=== PATIENT | male | born 1945 | race Caucasian/White ===

== ENCOUNTER 2017-05-28 12:24 | Inpatient (IN) | payer OTHER ==
[2017-05-28] MEDS ORDERED: ALTEPLASE 100MG 100 MG IVPB ONE (12:32)
[2017-05-28] MEDS: DOPAMINE 400 MG/D5W - 400,000 MCG/250 ML INFUS.BAG IVPB SCH (12:35)
[2017-05-28] MEDS ORDERED: NOREPINEPHRINE BITARTRATE 4 MG/4 ML ML IV ONE ×2 (12:36→12:38)
[2017-05-28] MEDS ORDERED: SODIUM CHLORIDE 0.9% 1000 ML INFUS.BAG IV ONE (12:40)
[2017-05-28] MEDS ORDERED: MIDAZOLAM HCL 2 MG/2 ML SINGLE DOSE VIAL ONE (12:47)
[2017-05-28] MEDS: NOREPINEPHRINE BITARTRATE 8,000 MCG in DEXTROSE 5%-WATER - 492 ML IV SCH (13:05)
[2017-05-28] MEDS ORDERED: PROPOFOL 1,000,000 MCG/100 ML VIAL ONE (13:10)
[2017-05-28 14:07] LABS: URINE APPEARANCE TURBID; URINE BILIRUBIN NEGATIVE (NEGATIVE); URINE BLOOD 2+ (NEGATIVE); URINE COLOR AMBER; URINE GLUCOSE (UA) 1+ (NEGATIVE); URINE KETONE NEGATIVE (NEGATIVE); URINE NITRITE NEGATIVE (NEGATIVE); URINE UROBILINOGEN NEGATIVE mg/dL (0.2-1.0)
--- NOTE | 2017-05-28 14:07 | PDOC ---
History of Present Illness - General Chief Complaint: Cardiac Arrest Stated Complaint: CARDIAC ARREST Time Seen by Provider: 05/28/17 12:44 - History of Present Illness Initial Comments: 05/28/17 13:55 "The patient is a 71 year old male, with a significant past medical history of a -fib, DM, HTN, CAD s/p stents, CHF, who arrives to the emergency department in respiratory failure. Patients reports the patient was on his way to see Dr. Nash for an appointment today for complaints of swelling in the RLE and pain across the chest. states that pt did not appear to be complaining of anything other than leg pain today. While in the cab on the way to hospital, he went unresponsive. Upon ER arrival the patient was found to be pulseless, and chest compressions were started at 12:20. Pt was coded per ACLS protocol for approx 10 minutes in ER, found to be in PEA arrest initially. He received epi x 3. Calcium, bicarb, D50 were also administered. Given report of RLE swelling, pt was given tPA bolus for presumed PE. Pt was intubated in ER. Pt regained pulse after 5 rounds of CPR. Pt was started on Levophed via IO. R IJ central line placed under sterile technique. Allergies: NKA Past surgical history: See HPI Social History: Nonsmoker. Denies EtOH use and recreational drug use. Primary Care Physician: Herb Counselor: " Past History - Past Medical History Allergies/Adverse Reactions: Allergies Allergy/AdvReac Type Severity Reaction Status Date / Time No Known Allergies Allergy Verified 05/28/17 12:30 Home Medications: Ambulatory Orders Escitalopram Oxalate [Lexapro -] 10 mg PO DAILY 05/28/17 Furosemide [Lasix] 80 mg PO DAILY 05/28/17 RX: Carvedilol 6.25 mg PO BID 05/28/17 RX: Potassium Chloride 20 meq PO DAILY 05/28/17 Sacubitril/Valsartan [Entresto 24 mg-26 mg Tablet] 1 each PO DAILY 05/28/17 Sitagliptin Phos/Metformin HCl [Janumet 50-500 mg Tablet] 1 each PO DAILY Cardiac Disorders: Yes COPD: No CHF: Yes Diabetes: Yes - Immunization History Immunization Up to Date: No - Suicide/Smoking/Psychosocial Hx Smoking History: Never smoked Have you smoked in the past 12 months: No Hx Alcohol Use: No Drug/Substance Use Hx: No Substance Use Type: None Hx Substance Use Treatment: No Review of Systems - Review of Systems Able to Perform ROS?: No *Physical Exam - Vital Signs Last Vital Signs Temp Pulse Resp BP Pulse Ox 89 24 0/0 96 05/28/17 13:09 05/28/17 13:06 05/28/17 12:29 05/28/17 13:09 - Physical Exam Comments: 05/28/17 14:07 "GENERAL: Intubated, unresponsive HEAD: No signs of trauma EYES: L pupil reactive, surgical R eye, sclera anicteric, conjunctiva clear ENT: Auricles normal inspection, nares patent, oropharynx clear without exudates. Moist mucosa NECK: +JVD, no stepoffs, no lymphadenopathy, or masses LUNGS: + Diffuse rales HEART: Regular rate and rhythm, normal S1 and S2, no murmurs, rubs or gallops ABDOMEN: Soft, normoactive bowel sounds. No masses NEUROLOGICAL: Intubated and sedated SKIN: Warm, Dry, normal turgor, no rashes or lesions noted. " Procedures - Central Line Central Line Lumen: triple Central Line Position: internal jugular (R) Complications: none Post Central Line Insertion: sutured, good blood return, position confirmed w/ CXR - Intubation Time of Intubation: 13:30 Intubation Method: orotracheal Blade used: Mac Tube Size (Fr): 7.5 Tube position @ lip (cm): 22 Tube position confirmed by: Direct visualization, CO2 detector, Chest x-ray, Breath sounds Breath Sounds after Intubation: equal Intubation Complications: no complications Post Intubation Xray: Yes (Good tube placement) Heart Score/ECG Review - ECG Impressions Comment:: 05/28/17 14:08 NSR, no CARLA/STDs, TWI in V2-V3, intervals wnl ED Treatment Course - LABORATORY CBC & Chemistry Diagram: 05/30/17 05:35 05/30/17 05:35 Medical Decision Making - Critical Care Time Total Critical Care Time (minutes): 90 Critical Care Statement: The care of this patient involved high complexity decision making to prevent further life threatening deterioration of the patient 's condition and/or to evaluate & treat vital organ system(s) failure or risk of failure. - Medical Decision Making 05/28/17 14:09 71 M with cardiac arrest, likely 2/2 respiratory failure. Pt with pulmonary edema and rales on exam, consistent with acute CHF exacerbation. Pt also was complaining of RLE swelling prior to arrival to ER, so tPA bolus was administered during resuscitation for possible PE. Pt with no signs of acute WI on EKG. - Labs, trop, lactate - Serial blood gases - CXR, UA - BCx - Sedation while intubated - Pressors PRN (currently on levophed, will start dobutamine for added inotropy if needed) - Admit ICU 05/28/17 14:45 Canales placed with minimal urine return Bedside sono reveals decompressed bladder. Possible new renal failure. Will f/u labs. Case discussed in detail with oncoming Emergency Physician including history, physical exam and ancillary studies. Oncoming Emergency Physician has assumed care for the patient and will complete the evaluation and treatment. Patient is aware of the plan. *DC/Admit/Observation/Transfer Diagnosis at time of Disposition: Cardiac arrest due to respiratory disorder - Discharge Dispostion Admit: Yes - Referrals - Patient Instructions - Post Discharge Activity - Attestations Physician Attestion: 05/28/17 14:12 I, Dr. Ty Urban MD, attest that this document has been prepared under my direction and personally reviewed by me in its entirety. I further attest, that it accurately reflects all work, treatment, procedures and medical decision -making performed by me.
[2017-05-28 14:20] LABS: EOS % 0.3 % (0-4.5); HEMATOCRIT 31.8 % (35.4-49); HEMOGLOBIN 10.1 GM/dL (11.7-16.9); LYMPH % 4.3 % (8-40); MCH 30.6 pg (25.7-33.7); MCHC 31.7 g/dl (32.0-35.9); MEAN CELL VOLUME 96.5 fl (80-96); MEAN PLT VOLUME 9.3 fl (7.5-11.1); NEUT % 89.4 % (42.8-82.8); PLATELET COUNT 169 K/MM3 (134-434); RBC 3.29 M/mm3 (4.00-5.60); RDW 16.3 % (11.9-15.9); WHITE BLOOD COUNT 8.5 K/mm3 (4.0-10.0)
[2017-05-28 14:21] LABS: VENOUS PC02 67.5 mmHg (38-52); VENOUS PH 7.23 (7.32-7.42); VENOUS PO2 41.6 mmHg (28-48)
[2017-05-28 14:30] LABS: URINE LEUK ESTERASE 3+ (NEGATIVE); URINE PROTEIN 3+ (NEGATIVE)
[2017-05-28] MEDS ORDERED: MIDAZOLAM HCL 2 MG/2 ML SINGLE DOSE VIAL IVPUSH ONE (14:40)
[2017-05-28 14:44] LABS: ANION GAP 8 (8-16); BILIRUBIN,TOTAL 0.6 mg/dL (0.2-1.0); BLOOD UREA NITROGEN 28 mg/dL (7-18); CALCIUM 8.6 mg/dL (8.5-10.1); CHLORIDE 106 mmol/L (98-107); CO2 28 mmol/L (21-32); CREATININE 1.5 mg/dL (0.7-1.3); POTASSIUM 5.8 mmol/L (3.5-5.1); SGOT/AST 241 U/L (15-37); SGPT/ALT 120 U/L (12-78); SODIUM 142 mmol/L (136-145); TOT PROT 4.9 g/dl (6.4-8.2)
[2017-05-28 14:52] LABS: EPI CELLS RARE /HPF (FEW); URINE BACTERIA MANY /hpf (NONE SEEN); URINE MUCUS RARE
[2017-05-28] MEDS ORDERED: ALTEPLASE 50 MG VIAL IVPB ONE (14:56)
[2017-05-28 14:59] LABS: ALK PHOS 289 U/L (45-117)
[2017-05-28 15:07] LABS: GLUCOSE,RANDOM 332 mg/dL (74-106)
[2017-05-28 15:21] LABS: INR 1.21 (0.82-1.09); PROTHROMBIN TIME (PATIENT) 13.7 SEC (9.98-11.88)
[2017-05-28 15:24] LABS: ACTIVATED PTT 38.3 SECONDS (26.9-34.4)
--- NOTE | 2017-05-28 15:32 | CONSULT ---
Consult Consult Specialty:: PULMONARY/CCM Referred by:: Dr. Urban Reason for Consultation:: cardiopulmonary arrest - History of Present Illness Chief Complaint: unresponsive History of Present Illness: 71yo male with h/o HTN, DM, atrial fibrillation, CAD s/p stents, LV systolic dysfunction who became unresponsive on the cab ride to the hospital. Found to be pulseless in the ER with initial rhythm of PEA. Given 3 rounds of epinephrine , given tPA bolus for presumed PE with ROSC after 10 minutes. CXR suggestive of pulmonary edema. Now intubated, sedated on propofol gtt on levophed gtt. Minimal urine output during oatse placement. - History Source History Provided By: Medical Record Limitations to Obtaining History: Clinical Condition - Past Medical History Cardio/Vascular: Yes: AFIB, CAD, CHF, HTN Endocrine: Yes: Diabetes Mellitus - Alcohol/Substance Use Hx Alcohol Use: No - Smoking History Smoking history: Never smoked Have you smoked in the past 12 months: No - Social History History of Recent Travel: No Home Medications - Allergies Allergies/Adverse Reactions: Allergies Allergy/AdvReac Type Severity Reaction Status Date / Time No Known Allergies Allergy Verified 05/28/17 12:30 - Home Medications Home Medications: Ambulatory Orders Carvedilol 6.25 mg PO BID 05/28/17 Escitalopram Oxalate [Lexapro -] 10 mg PO DAILY 05/28/17 Furosemide [Lasix] 80 mg PO DAILY 05/28/17 Potassium Chloride 20 meq PO DAILY 05/28/17 Sacubitril/Valsartan [Entresto 24 mg-26 mg Tablet] 1 each PO DAILY 05/28/17 Sitagliptin Phos/Metformin HCl [Janumet 50-500 mg Tablet] 1 each PO DAILY Review of Systems Unable to obtain ROS, reason: pt intubated Physical Exam Vital Signs: Vital Signs Temperature 97.2 F L 05/28/17 13:00 Pulse Rate 73 05/28/17 14:00 Respiratory Rate 18 05/28/17 14:00 Blood Pressure 91/52 05/28/17 14:00 O2 Sat by Pulse Oximetry (%) 90 L 05/28/17 14:00 Constitutional: Yes: Moderate Distress, Other (intubated, tachypneic) Eyes: Yes: Conjunctiva Clear, EOM Intact HENT: Yes: Atraumatic, Normocephalic Neck: Yes: Supple, Trachea Midline Cardiovascular: Yes: Tachycardia Respiratory: Yes: Rhonchi Gastrointestinal: Yes: Soft. No: Tenderness Edema: Yes Labs: CBC, BMP 05/28/17 14:15 05/28/17 14:15 Imaging - Results Chest X-ray: Report Reviewed, Image Reviewed (pulmonary edema) Problem List - Problems (1) Acute respiratory failure with hypoxia Code(s): J96.01 - ACUTE RESPIRATORY FAILURE WITH HYPOXIA (2) Cardiac arrest Code(s): I46.9 - CARDIAC ARREST, CAUSE UNSPECIFIED (3) Acute pulmonary edema Code(s): J81.0 - ACUTE PULMONARY EDEMA (4) Acute on chronic systolic heart failure Code(s): I50.23 - ACUTE ON CHRONIC SYSTOLIC (CONGESTIVE) HEART FAILURE (5) Atrial fibrillation Code(s): I48.91 - UNSPECIFIED ATRIAL FIBRILLATION (6) Elevated troponin Code(s): R74.8 - ABNORMAL LEVELS OF OTHER SERUM ENZYMES (7) Hyperkalemia Code(s): E87.5 - HYPERKALEMIA (8) Hypertension Code(s): I10 - ESSENTIAL (PRIMARY) HYPERTENSION (9) Diabetes Code(s): E11.9 - TYPE 2 DIABETES MELLITUS WITHOUT COMPLICATIONS Assessment/Plan Acute Hypoxic and Hypercapneic Respiratory Failure s/p PEA Cardiopulmonary Arrest Acute Pulmonary Edema Acute on Chronic Systolic Heart Failure Shock - Likely Cardiogenic r/o Acute KS Acute Kidney Injury Lactic Acidosis Elevated LFTs Atrial Fibrillation HTN DM - echocardiogram - levophed gtt to maintain MAP >65 - can add inotropic agent - IV lasix - consider nitro gtt if BP tolerates - trend cardiac enzymes, EKGs, lactate, LFTs - monitor urine output, creatinine - renal/bladder ultrasound - LE dopplers - continue volume assist control, currently on 100% FiO2, PEEP 10 - ICU monitoring - prognosis guarded critical care time spent in reviewing chart, evaluating patient and formulating plan 40 min
[2017-05-28] MEDS ORDERED: FUROSEMIDE 40 MG/4 ML INJECTABLE VIAL IVPUSH ONE (16:15)
[2017-05-28] MEDS ORDERED: FUROSEMIDE 40 MG/4 ML INJECTABLE VIAL ONE (16:29)
--- NOTE | 2017-05-28 16:29 | EKG ---
Test Reason : Blood Pressure : / mmHG Vent. Rate : 106 BPM Atrial Rate : 106 BPM P-R Int : 154 ms QRS Dur : 090 ms QT Int : 324 ms P-R-T Axes : 046 -43 034 degrees QTc Int : 430 ms SINUS TACHYCARDIA WITH PREMATURE ATRIAL COMPLEXES WITH ABERRANT CONDUCTION LEFT AXIS DEVIATION LOW VOLTAGE QRS ANTEROLATERAL INFARCT (CITED ON OR BEFORE 25-AUG-2014) ABNORMAL ECG WHEN COMPARED WITH ECG OF 27-AUG-2014 09:24, SIGNIFICANT CHANGES HAVE OCCURRED Confirmed by EVELYN MARQUES MD ([id number]) on 05/28/2017 4:29:16 PM Referred By: Confirmed By:EVELYN MARQUES MD
--- NOTE | 2017-05-28 18:57 | HP ---
Admitting History and Physical - Primary Care Physician PCP: Martin Nash - Admission History of Present Illness: the patient is 71yo male, patient of Dr Nash-- with extensive past medical history of HTN, DM, atrial fibrillation, CAD s/p stents, LV systolic dysfunction who became unresponsive on the cab ride to his doctor's office. Hotel Maintenance Technician took him to the emergency room. . Found to be pulseless in the ER with initial rhythm of PEA. patient coded in the ER--Resuscitated. Given 3 rounds of epinephrine, given tPA bolus for presumed PE with ROSC after 10 minutes. CXR suggestive of pulmonary edema. Now intubated, sedated on propofol gtt on levophed gtt. patient seen by me in the emergency room. Discussed with emergency room physician also as well as nursing staff at bedside. Chart reviewed History Source: Family Member, Medical Record Limitations to Obtaining History: Clinical Condition - Past Medical History Cardiovascular: Yes: AFIB, CAD, CHF, HTN Endocrine: Yes: Diabetes Mellitus - Smoking History Smoking history: Never smoked Have you smoked in the past 12 months: No - Alcohol/Substance Use Hx Alcohol Use: No - Social History History of Recent Travel: No Home Medications - Allergies Allergies/Adverse Reactions: Allergies Allergy/AdvReac Type Severity Reaction Status Date / Time No Known Allergies Allergy Verified 05/28/17 12:30 - Home Medications Home Medications: Ambulatory Orders Carvedilol 6.25 mg PO BID 05/28/17 Escitalopram Oxalate [Lexapro -] 10 mg PO DAILY 05/28/17 Furosemide [Lasix] 80 mg PO DAILY 05/28/17 Potassium Chloride 20 meq PO DAILY 05/28/17 Sacubitril/Valsartan [Entresto 24 mg-26 mg Tablet] 1 each PO DAILY 05/28/17 Sitagliptin Phos/Metformin HCl [Janumet 50-500 mg Tablet] 1 each PO DAILY Review of Systems Unable to obtain ROS, reason: see [place] Physical Examination Vital Signs: Vital Signs Temperature 95.9 F L 05/28/17 18:24 Pulse Rate 76 05/28/17 18:24 Respiratory Rate 16 05/28/17 18:24 Blood Pressure 115/66 05/28/17 18:24 O2 Sat by Pulse Oximetry (%) 100 05/28/17 18:24 Constitutional: Yes: Other (intubated/sedated/) Eyes: Yes: Other HENT: Yes: Other Neck: Yes: Other Cardiovascular: Yes: Regular Rate and Rhythm Respiratory: Yes: Diminished Gastrointestinal: Yes: Soft Edema: LLE: 1+, RLE: 1+ Neurological: Yes: Other (sedated) Labs: CBC, BMP 05/28/17 14:15 05/28/17 14:15 Imaging - Results Chest X-ray: Report Reviewed EKG: Report Reviewed Problem List - Problems (1) Cardiac arrest Code(s): I46.9 - CARDIAC ARREST, CAUSE UNSPECIFIED (2) Diabetes Code(s): E11.9 - TYPE 2 DIABETES MELLITUS WITHOUT COMPLICATIONS (3) Elevated troponin Code(s): R74.8 - ABNORMAL LEVELS OF OTHER SERUM ENZYMES (4) Lactic acidosis Code(s): E87.2 - ACIDOSIS (5) CHF (congestive heart failure) Code(s): I50.9 - HEART FAILURE, UNSPECIFIED Assessment/Plan ICU admit IV Lasix Ventilator support Critical team on the case. Cardiology to evaluate--- called for consultation. Monitor blood sugar Discussed with patient's . Condition critical. critical care time--examining documenting coordinating care as well as discussing with family--40 minutes. We will follow.
[2017-05-28] MEDS: PANTOPRAZOLE SODIUM 40 MG VIAL IVPUSH SCH (19:00)
[2017-05-28] MEDS ORDERED: PANTOPRAZOLE SODIUM 40 MG VIAL ONE (19:02)
[2017-05-28 22:06] LABS: ANION GAP 5 (8-16); BLOOD UREA NITROGEN 34 mg/dL (7-18); CALCIUM 8.6 mg/dL (8.5-10.1); CHLORIDE 105 mmol/L (98-107); CO2 30 mmol/L (21-32); CREATININE 1.5 mg/dL (0.7-1.3); POTASSIUM 5.6 mmol/L (3.5-5.1); SODIUM 140 mmol/L (136-145)
[2017-05-28 22:09] LABS: GLUCOSE,RANDOM 313 mg/dL (74-106)
[2017-05-28] MEDS ORDERED: SODIUM POLYSTYRENE SULFONATE 15 GM/60 ML BOTTLE NGT ONE (23:53)
[2017-05-28] MEDS ORDERED: DEXTROSE 50%-WATER - 25 GM/50 ML VIAL IVPUSH ONE (23:54)
[2017-05-28] MEDS ORDERED: INSULIN REGULAR HUMAN 100 UNITS/ML *VIAL IVPUSH ONE (23:54)
[2017-05-29] MEDS ORDERED: PROPOFOL 1,000,000 MCG/100 ML VIAL ONE ×2 (00:01→17:10)
[2017-05-29] MEDS ORDERED: SODIUM BICARBONATE 8.4% 50 MEQ/50 ML DISP.SYRIN IVPUSH ONE (00:15)
[2017-05-29] MEDS: MIDAZOLAM 100 MG in SODIUM CHLORIDE 100 ML IVPB SCH ×3 (00:18→19:00)
[2017-05-29] MEDS ORDERED: DEXTROSE 50%-WATER 25 GM/50 ML DISP.SYRIN ONE (00:22)
[2017-05-29 00:39] VITALS: BMI 32.6
[2017-05-29 01:13] LABS: VENOUS PC02 46.7 mmHg (38-52); VENOUS PH 7.33 (7.32-7.42); VENOUS PO2 52.6 mmHg (28-48)
[2017-05-29] MEDS ORDERED: INSULIN (NOVOLOG) ASPART 100 UNITS/ML 10ML VIAL SQ ONE (01:30)
[2017-05-29] MEDS: NOREPINEPHRINE BITARTRATE 8,000 MCG in DEXTROSE 5%-WATER - 492 ML IV SCH ×3 (02:00→16:23)
[2017-05-29 03:31] LABS: HEMATOCRIT 29.2 % (35.4-49); HEMOGLOBIN 9.7 GM/dL (11.7-16.9); MCH 31.2 pg (25.7-33.7); MCHC 33.1 g/dl (32.0-35.9); MEAN CELL VOLUME 94.2 fl (80-96); MEAN PLT VOLUME 8.6 fl (7.5-11.1); PLATELET COUNT 152 K/MM3 (134-434); RDW 15.6 % (11.9-15.9); WHITE BLOOD COUNT 10.6 K/mm3 (4.0-10.0)
[2017-05-29 03:58] LABS: ANION GAP 7 (8-16); BLOOD UREA NITROGEN 36 mg/dL (7-18); CALCIUM 8.5 mg/dL (8.5-10.1); CHLORIDE 106 mmol/L (98-107); CO2 30 mmol/L (21-32); CREATININE 1.7 mg/dL (0.7-1.3); GLUCOSE,RANDOM 293 mg/dL (74-106); SODIUM 143 mmol/L (136-145)
[2017-05-29] MEDS: CHLORHEXIDINE GLUCONATE 4% CLEANSER FOR DECOLONIZATION TP SCH ×2 (03:59→21:29)
[2017-05-29] MEDS: INSULIN SLIDING SCALE (NOVOLOG) 1 VIAL SQ SCH ×3 (06:32→16:24)
[2017-05-29 06:47] LABS: HEMATOCRIT 30.1 % (35.4-49); LYMPH % 3.3 % (8-40); MCH 31.5 pg (25.7-33.7); MCHC 33.2 g/dl (32.0-35.9); MEAN CELL VOLUME 94.9 fl (80-96); MEAN PLT VOLUME 10.1 fl (7.5-11.1); MONO % 9.8 % (3.8-10.2); NEUT % 86.9 % (42.8-82.8); PLATELET COUNT 164 K/MM3 (134-434); RBC 3.17 M/mm3 (4.00-5.60); RDW 15.9 % (11.9-15.9); WHITE BLOOD COUNT 10.7 K/mm3 (4.0-10.0)
[2017-05-29 07:04] LABS: ALBUMIN 1.9 g/dl (3.4-5.0); ANION GAP 7 (8-16); BILIRUBIN,TOTAL 0.5 mg/dL (0.2-1.0); BLOOD UREA NITROGEN 37 mg/dL (7-18); CALCIUM 8.4 mg/dL (8.5-10.1); CHLORIDE 105 mmol/L (98-107); CO2 31 mmol/L (21-32); CREATININE 1.6 mg/dL (0.7-1.3); GLUCOSE,RANDOM 263 mg/dL (74-106); MAGNESIUM 1.8 mg/dL (1.8-2.4); PHOSPHOROUS 3.8 mg/dL (2.5-4.9); POTASSIUM 5.2 mmol/L (3.5-5.1); SGOT/AST 80 U/L (15-37); SGPT/ALT 82 U/L (12-78); SODIUM 143 mmol/L (136-145); TOT PROT 4.7 g/dl (6.4-8.2)
[2017-05-29 07:05] LABS: ALK PHOS 208 U/L (45-117)
[2017-05-29 07:23] LABS: INR 1.24 (0.82-1.09)
[2017-05-29 07:26] LABS: ACTIVATED PTT 36.1 SECONDS (26.9-34.4)
--- NOTE | 2017-05-29 08:47 | PN ---
Progress Note (short form) - Note Progress Note: patient seen examined in ICU Remains intubated poorly responsive not responding to painful stimuli no GAG reflux on pressors oates - out put fairly good Vital Signs Temp 93.5 F L 05/29/17 06:02 Pulse 72 05/29/17 06:02 Resp 18 05/29/17 06:34 BP 105/62 05/29/17 06:02 Pulse Ox 100 05/29/17 00:23 Intake & Output 05/28/17 05/28/17 05/29/17 11:59 23:59 11:59 Intake Total 620 553 Output Total 220 300 Balance 400 253 Weight 160 lb 196 lb 3.382 oz Intake: IV 120 553 DIPRIVAN - 1,000,000 mcg 112 In 100 ml @ 5 MCG/KG/MIN 2.177 mls/hr IVPB TITR PHILL Rx#:[id number] Levophed - 8,000 Mcg In 120 392 D5w - 492 ml @ 5 MCG/MIN 18.75 mls/hr IV TITR PHILL Rx#:[id number] Versed - 100 mg In Normal 49 Saline - 100 ml @ 1 MG/ HR 1 mls/hr IVPB TITR PHILL Rx#:[id number] IVPB 500 Output: Urine 220 300 Oates 220 300 Other: Voiding Method Indwelling Catheter Indwelling Catheter Height 5 ft 5 in 5 ft 5 in Body Mass Index (BMI) 26.6 32.6 Weight Measurement Method Built in [facility] Weight Measurement Method Est/Stated by Patient Active Medications Chlorhexidine Gluconate (Hibiclens For Decolonization -) 1 applic TP HS PHILL Last Admin: 05/29/17 03:59 Dose: 1 applic Dopamine HCl/Dextrose (Dopamine 400 Mg/D5w -) 400,000 mcg in 250 mls @ 13.608 mls/hr IVPB TITR PHILL; 5 MCG/KG/MIN PRN Reason: Protocol Last Admin: 05/28/17 12:35 Dose: Not Given Norepinephrine Bitartrate 8, (000 mcg/ Dextrose) 500 mls @ 18.75 mls/hr IV TITR PHILL; 5 MCG/MIN PRN Reason: Protocol Last Admin: 05/29/17 02:00 Dose: 15 mcg/min, 56.25 mls/hr Midazolam HCl 100 mg/ Sodium (Chloride) 100 mls @ 1 mls/hr IVPB TITR PHILL; 1 MG/ HR PRN Reason: Protocol Last Titration: 05/29/17 00:30 Dose: 5 mg/hr, 5 mls/hr Propofol (Diprivan -) 1,000,000 mcg in 100 mls @ 2.177 mls/hr IVPB TITR PHILL; 5 MCG/KG/MIN PRN Reason: Protocol Last Admin: 05/29/17 00:00 Dose: 68.89 mcg/kg/min, 30 mls/hr Insulin Aspart (Novolog Vial Sliding Scale -) 1 vial SQ TIDAC PHILL PRN Reason: Protocol Last Admin: 05/29/17 06:32 Dose: 8 units Mupirocin (Bactroban Ointment (For Decolonization) -) 1 applic NS BID PHILL Stop: 06/02/17 23:29 Last Admin: 05/29/17 00:00 Dose: 1 applic Pantoprazole Sodium (Protonix Iv) 40 mg IVPUSH DAILY PHILL Last Admin: 05/28/17 19:00 Dose: 40 mg Abnormal Lab Results 05/28/17 05/28/17 05/28/17 13:40 14:15 14:15 WBC RBC 3.29 L Hgb 10.1 L D Hct 31.8 L MCV 96.5 H MCHC 31.7 L RDW 16.3 H D Absolute Neuts (auto) 7.6 L Absolute Lymphs (auto) 0.4 L Absolute Monos (auto) 0.4 L Absolute Basos (auto) Neutrophils % 89.4 H D Lymphocytes % 4.3 L D PT with INR 13.70 H INR 1.21 H PTT (Actin FS) 38.3 H VBG pH POC VBG pCO2 POC VBG pO2 Mixed VBG HCO3 Potassium Anion Gap BUN Creatinine Random Glucose Lactic Acid Calcium AST ALT Alkaline Phosphatase Creatine Kinase Index CK-MB (CK-2) Troponin I Total Protein Albumin Urine Protein 3+ H Urine Glucose (UA) 1+ H Urine Blood 2+ H Ur Leukocyte Esterase 1+ H 05/28/17 05/28/17 05/28/17 14:15 14:15 14:15 WBC RBC Hgb Hct MCV MCHC RDW Absolute Neuts (auto) Absolute Lymphs (auto) Absolute Monos (auto) Absolute Basos (auto) Neutrophils % Lymphocytes % PT with INR INR PTT (Actin FS) VBG pH 7.23 L* POC VBG pCO2 67.5 H* POC VBG pO2 Mixed VBG HCO3 27.5 H Potassium 5.8 H D Anion Gap BUN 28 H D Creatinine 1.5 H Random Glucose 332 H* Lactic Acid 3.1 H* Calcium AST 241 H D ALT 120 H D Alkaline Phosphatase 289 H D Creatine Kinase Index 5.2 H CK-MB (CK-2) 8.389 H Troponin I 0.81 H* D Total Protein 4.9 L Albumin 2.0 L D Urine Protein Urine Glucose (UA) Urine Blood Ur Leukocyte Esterase 05/28/17 05/28/17 05/29/17 21:25 21:25 01:00 WBC RBC Hgb Hct MCV MCHC RDW Absolute Neuts (auto) Absolute Lymphs (auto) Absolute Monos (auto) Absolute Basos (auto) Neutrophils % Lymphocytes % PT with INR INR PTT (Actin FS) VBG pH POC VBG pCO2 POC VBG pO2 52.6 H D Mixed VBG HCO3 Potassium 5.6 H Anion Gap 5 L BUN 34 H D Creatinine 1.5 H Random Glucose 313 H* Lactic Acid Calcium AST ALT Alkaline Phosphatase Creatine Kinase Index 5.9 H CK-MB (CK-2) 17.054 H Troponin I 1.15 H* D Total Protein Albumin Urine Protein Urine Glucose (UA) Urine Blood Ur Leukocyte Esterase 05/29/17 05/29/17 05/29/17 03:25 03:25 06:20 WBC 10.6 H 10.7 H RBC 3.10 L 3.17 L Hgb 9.7 L 10.0 L Hct 29.2 L 30.1 L MCV MCHC RDW Absolute Neuts (auto) 9.3 L D Absolute Lymphs (auto) 0.3 L Absolute Monos (auto) 1.1 L Absolute Basos (auto) 0.0 L Neutrophils % 86.9 H Lymphocytes % 3.3 L D PT with INR INR PTT (Actin FS) VBG pH POC VBG pCO2 POC VBG pO2 Mixed VBG HCO3 Potassium Anion Gap 7 L BUN 36 H Creatinine 1.7 H Random Glucose 293 H Lactic Acid Calcium AST ALT Alkaline Phosphatase Creatine Kinase Index CK-MB (CK-2) Troponin I Total Protein Albumin Urine Protein Urine Glucose (UA) Urine Blood Ur Leukocyte Esterase 05/29/17 05/29/17 05/29/17 06:20 06:20 06:20 WBC RBC Hgb Hct MCV MCHC RDW Absolute Neuts (auto) Absolute Lymphs (auto) Absolute Monos (auto) Absolute Basos (auto) Neutrophils % Lymphocytes % PT with INR 14.00 H INR 1.24 H PTT (Actin FS) 36.1 H VBG pH POC VBG pCO2 POC VBG pO2 Mixed VBG HCO3 Potassium 5.2 H Anion Gap 7 L BUN 37 H Creatinine 1.6 H Random Glucose 263 H Lactic Acid 3.2 H* Calcium 8.4 L AST 80 H D ALT 82 H D Alkaline Phosphatase 208 H D Creatine Kinase Index CK-MB (CK-2) Troponin I Total Protein 4.7 L Albumin 1.9 L Urine Protein Urine Glucose (UA) Urine Blood Ur Leukocyte Esterase 05/29/17 06:20 WBC RBC Hgb Hct MCV MCHC RDW Absolute Neuts (auto) Absolute Lymphs (auto) Absolute Monos (auto) Absolute Basos (auto) Neutrophils % Lymphocytes % PT with INR INR PTT (Actin FS) VBG pH POC VBG pCO2 POC VBG pO2 Mixed VBG HCO3 Potassium Anion Gap BUN Creatinine Random Glucose Lactic Acid Calcium AST ALT Alkaline Phosphatase Creatine Kinase Index CK-MB (CK-2) Troponin I 0.45 H D Total Protein Albumin Urine Protein Urine Glucose (UA) Urine Blood Ur Leukocyte Esterase N- intubated, not responsive to painful stimuli CVS- s1s2 lungs- anterior breath sounds, diminished abd- soft, nd LE- trace edema right TLC A/P Acute Hypoxic respiratory failure status post PEA cardiac arrest acute pulmonary edema acute on chronic systolic HF aFIB Elevated troponin lactic acidosis leucocytosis positive UA Elevated LFT NIKA -VENT support -pressors -cardiac evaluation ECHO pending -consider ID evaluation prognosis guarded Problem List - Problems (1) Lactic acidosis Code(s): E87.2 - ACIDOSIS (2) Leucocytosis Code(s): D72.829 - ELEVATED WHITE BLOOD CELL COUNT, UNSPECIFIED (3) Acute on chronic systolic heart failure Code(s): I50.23 - ACUTE ON CHRONIC SYSTOLIC (CONGESTIVE) HEART FAILURE (4) Acute pulmonary edema Code(s): J81.0 - ACUTE PULMONARY EDEMA (5) Acute respiratory failure with hypoxia Code(s): J96.01 - ACUTE RESPIRATORY FAILURE WITH HYPOXIA (6) Cardiac arrest due to respiratory disorder Code(s): J98.9 - RESPIRATORY DISORDER, UNSPECIFIED; I46.8 - CARDIAC ARREST DUE TO OTHER UNDERLYING CONDITION (7) Elevated troponin Code(s): R74.8 - ABNORMAL LEVELS OF OTHER SERUM ENZYMES
[2017-05-29 08:52] LABS: ARTERIAL BLD GAS O2 SATURATION 99.9 % (90-98.9); ARTERIAL BLOOD GAS BASE EXCESS 3.7 meq/l (-2-2); ARTERIAL BLOOD GAS PCO2 49.2 mmHg (35-45); ARTERIAL BLOOD GAS pH 7.39 (7.35-7.45)
[2017-05-29 08:57] LABS: ALLENS TEST POSITIVE
[2017-05-29] MEDS: PANTOPRAZOLE SODIUM 40 MG VIAL IVPUSH SCH (09:49)
[2017-05-29] MEDS: MUPIROCIN 2% TOPICAL OINTMENT FOR DECOLONIZATION NS SCH ×3 (09:50→21:29)
[2017-05-29] MEDS ORDERED: LEVOFLOXACIN 500 MG IVPB 500 MG/100 ML BAG IVPB ONE (10:00)
[2017-05-29] MEDS ORDERED: HEMOQUE TEST 1 EACH EACH ONE (10:58)
[2017-05-29] MEDS ORDERED: INSULIN (NOVOLOG) ASPART 100 UNITS/ML 10ML VIAL ONE (10:59)
--- NOTE | 2017-05-29 11:17 | PN ---
Progress Note (short form) - Note Progress Note: ID consult dictated 71 year old man on his way to PMD for RLE swelling and chest pain, arrested in cab and brought to ED resuscitated and given TPA intubated on levophed, propofol and versed asked to see for UTI cxray suggestive of congestion s/p cardiac arrest chf anasarca UTI dm poorly controlled nika awaiting cardiology evaluation f/u cultures start zosyn for UTI, currently on pressors adjust for elevated creatinine Problem List - Problems (1) Cardiac arrest Code(s): I46.9 - CARDIAC ARREST, CAUSE UNSPECIFIED (2) Acute on chronic systolic heart failure Code(s): I50.23 - ACUTE ON CHRONIC SYSTOLIC (CONGESTIVE) HEART FAILURE (3) Anasarca Code(s): R60.1 - GENERALIZED EDEMA (4) UTI (urinary tract infection) Code(s): N39.0 - URINARY TRACT INFECTION, SITE NOT SPECIFIED (5) NIKA (acute kidney injury) Code(s): N17.9 - ACUTE KIDNEY FAILURE, UNSPECIFIED
[2017-05-29] MEDS ORDERED: PIPERACILLIN/TAZOB 3.375 GM/50 ML PRE-DOCKED IVPB SCH (11:30)
--- NOTE | 2017-05-29 11:54 | PN ---
Teaching Attending Note Name of Resident: Gaurav Miller ATTENDING PHYSICIAN STATEMENT I saw and evaluated the patient. I reviewed the resident's note and discussed the case with the resident. I agree with the resident's findings and plan as documented. SUBJECTIVE: Patient seen and examined in the ICU. Intubated and sedated. Noted increase in lactic acid and worsening renal function. Remains on pressors. Intake & Output 05/26/17 05/27/17 05/28/17 05/29/17 23:59 23:59 23:59 23:59 Intake Total 620 553 Output Total 220 300 Balance 400 253 Weight 160 lb 196 lb 3.382 oz Last Vital Signs Temp Pulse Resp BP Pulse Ox 94.7 F L 73 18 97/60 100 05/29/17 10:00 05/29/17 11:14 05/29/17 10:00 05/29/17 11:14 05/29/17 09:00 Active Medications Chlorhexidine Gluconate (Hibiclens For Decolonization -) 1 applic TP HS PHILL Last Admin: 05/29/17 03:59 Dose: 1 applic Dopamine HCl/Dextrose (Dopamine 400 Mg/D5w -) 400,000 mcg in 250 mls @ 13.608 mls/hr IVPB TITR PHILL; 5 MCG/KG/MIN PRN Reason: Protocol Last Admin: 05/28/17 12:35 Dose: Not Given Norepinephrine Bitartrate 8, (000 mcg/ Dextrose) 500 mls @ 18.75 mls/hr IV TITR PHILL; 5 MCG/MIN PRN Reason: Protocol Last Admin: 05/29/17 11:14 Dose: 15 mcg/min, 56.25 mls/hr Midazolam HCl 100 mg/ Sodium (Chloride) 100 mls @ 1 mls/hr IVPB TITR PHILL; 1 MG/ HR PRN Reason: Protocol Last Titration: 05/29/17 11:00 Dose: 0 mg/hr, 0 mls/hr Propofol (Diprivan -) 1,000,000 mcg in 100 mls @ 2.177 mls/hr IVPB TITR PHILL; 5 MCG/KG/MIN PRN Reason: Protocol Last Admin: 05/29/17 00:00 Dose: 68.89 mcg/kg/min, 30 mls/hr Piperacillin Sod/Tazobactam (Sod 3.375 gm/ Dextrose) 100 mls @ 200 mls/hr IVPB Q8H-IV PHILL Sodium Chloride (Normal Saline -) 1,000 mls @ 100 mls/hr IV ASDIR PHILL Insulin Aspart (Novolog Vial Sliding Scale -) 1 vial SQ TIDAC PHILL PRN Reason: Protocol Last Admin: 05/29/17 11:06 Dose: 3 units Insulin Detemir (Levemir Vial) 10 units SQ HS PHILL Mupirocin (Bactroban Ointment (For Decolonization) -) 1 applic NS BID PHILL Stop: 06/02/17 23:29 Last Admin: 05/29/17 09:50 Dose: 1 applic Pantoprazole Sodium (Protonix Iv) 40 mg IVPUSH DAILY PHILL Last Admin: 05/29/17 09:49 Dose: 40 mg Constitutional: Yes: Intubated and sedated Eyes: Yes: Conjunctiva Clear, right eye enucleated, poorly responsive left eye HENT: Yes: Atraumatic, Normocephalic Neck: Yes: Supple, Trachea Midline Cardiovascular: Yes: Tachycardia Respiratory: Yes: Rhonchi Gastrointestinal: Yes: Soft. No: Tenderness Edema: Yes Labs: Laboratory Results - last 24 hr 05/28/17 05/28/17 05/28/17 13:40 14:15 14:15 WBC 8.5 D RBC 3.29 L Hgb 10.1 L D Hct 31.8 L MCV 96.5 H MCH 30.6 MCHC 31.7 L RDW 16.3 H D Plt Count 169 MPV 9.3 Absolute Neuts (auto) 7.6 L Absolute Lymphs (auto) 0.4 L Absolute Monos (auto) 0.4 L Absolute Eos (auto) 0.0 Absolute Basos (auto) 0.1 Neutrophils % 89.4 H D Lymphocytes % 4.3 L D Monocytes % 5.0 Eosinophils % 0.3 D Basophils % 1.0 PT with INR 13.70 H INR 1.21 H PTT (Actin FS) 38.3 H Puncture Site ABG pH ABG pCO2 at Pt Temp ABG pO2 at Pt Temp ABG HCO3 ABG O2 Sat (Measured) ABG O2 Content ABG Base Excess Maulik Test VBG pH POC VBG pCO2 POC VBG pO2 Mixed VBG HCO3 O2 Delivery Device Oxygen Flow Rate Vent Rate Mechanical Rate PEEP Pressure Support Vent Sodium Potassium Chloride Carbon Dioxide Anion Gap BUN Creatinine Creat Clearance w eGFR POC Glucometer Random Glucose Hemoglobin A1c % Lactic Acid Calcium Phosphorus Magnesium Total Bilirubin AST ALT Alkaline Phosphatase Creatine Kinase Creatine Kinase Index CK-MB (CK-2) Troponin I Total Protein Albumin Urine Color [place] Urine Appearance Turbid Urine pH 5.0 Ur Specific [place] 1.013 Urine Protein 3+ H Urine Glucose (UA) 1+ H Urine Ketones Negative Urine Blood 2+ H Urine Nitrite Negative Urine Bilirubin Negative Urine Urobilinogen Negative Ur Leukocyte Esterase 1+ H Urine WBC (Auto) 600 Urine RBC (Auto) 26 Ur Epithelial Cells Rare Urine Bacteria Many Urine Mucus Rare Blood Type Antibody Screen 05/28/17 05/28/17 05/28/17 14:15 14:15 14:15 WBC RBC Hgb Hct MCV MCH MCHC RDW Plt Count MPV Absolute Neuts (auto) Absolute Lymphs (auto) Absolute Monos (auto) Absolute Eos (auto) Absolute Basos (auto) Neutrophils % Lymphocytes % Monocytes % Eosinophils % Basophils % PT with INR INR PTT (Actin FS) Puncture Site ABG pH ABG pCO2 at Pt Temp ABG pO2 at Pt Temp ABG HCO3 ABG O2 Sat (Measured) ABG O2 Content ABG Base Excess Maulik Test VBG pH 7.23 L* POC VBG pCO2 67.5 H* POC VBG pO2 41.6 Mixed VBG HCO3 27.5 H O2 Delivery Device Oxygen Flow Rate Vent Rate Mechanical Rate PEEP Pressure Support Vent Sodium 142 Potassium 5.8 H D Chloride 106 Carbon Dioxide 28 Anion Gap 8 BUN 28 H D Creatinine 1.5 H Creat Clearance w eGFR 45.87 POC Glucometer Random Glucose 332 H* Hemoglobin A1c % Lactic Acid Calcium 8.6 Phosphorus Magnesium Total Bilirubin 0.6 AST 241 H D ALT 120 H D Alkaline Phosphatase 289 H D Creatine Kinase 161 Creatine Kinase Index 5.2 H CK-MB (CK-2) 8.389 H Troponin I 0.81 H* D Total Protein 4.9 L Albumin 2.0 L D Urine Color Urine Appearance Urine pH Ur Specific [place] Urine Protein Urine Glucose (UA) Urine Ketones Urine Blood Urine Nitrite Urine Bilirubin Urine Urobilinogen Ur Leukocyte Esterase Urine WBC (Auto) Urine RBC (Auto) Ur Epithelial Cells Urine Bacteria Urine Mucus Blood Type O POSITIVE Antibody Screen Negative 05/28/17 05/28/17 05/28/17 14:15 17:36 21:25 WBC RBC Hgb Hct MCV MCH MCHC RDW Plt Count MPV Absolute Neuts (auto) Absolute Lymphs (auto) Absolute Monos (auto) Absolute Eos (auto) Absolute Basos (auto) Neutrophils % Lymphocytes % Monocytes % Eosinophils % Basophils % PT with INR INR PTT (Actin FS) Puncture Site ABG pH ABG pCO2 at Pt Temp ABG pO2 at Pt Temp ABG HCO3 ABG O2 Sat (Measured) ABG O2 Content ABG Base Excess Maulik Test VBG pH POC VBG pCO2 POC VBG pO2 Mixed VBG HCO3 O2 Delivery Device Oxygen Flow Rate Vent Rate Mechanical Rate PEEP Pressure Support Vent Sodium Potassium Chloride Carbon Dioxide Anion Gap BUN Creatinine Creat Clearance w eGFR POC Glucometer Random Glucose Hemoglobin A1c % Lactic Acid 3.1 H* 1.6 Calcium Phosphorus Magnesium Total Bilirubin AST ALT Alkaline Phosphatase Creatine Kinase 287 Creatine Kinase Index 5.9 H CK-MB (CK-2) 17.054 H Troponin I 1.15 H* D Total Protein Albumin Urine Color Urine Appearance Urine pH Ur Specific [place] Urine Protein Urine Glucose (UA) Urine Ketones Urine Blood Urine Nitrite Urine Bilirubin Urine Urobilinogen Ur Leukocyte Esterase Urine WBC (Auto) Urine RBC (Auto) Ur Epithelial Cells Urine Bacteria Urine Mucus Blood Type Antibody Screen 05/28/17 05/29/17 05/29/17 21:25 01:00 01:11 WBC RBC Hgb Hct MCV MCH MCHC RDW Plt Count MPV Absolute Neuts (auto) Absolute Lymphs (auto) Absolute Monos (auto) Absolute Eos (auto) Absolute Basos (auto) Neutrophils % Lymphocytes % Monocytes % Eosinophils % Basophils % PT with INR INR PTT (Actin FS) Puncture Site ABG pH ABG pCO2 at Pt Temp ABG pO2 at Pt Temp ABG HCO3 ABG O2 Sat (Measured) ABG O2 Content ABG Base Excess Maulik Test VBG pH 7.33 POC VBG pCO2 46.7 D POC VBG pO2 52.6 H D Mixed VBG HCO3 23.8 O2 Delivery Device Oxygen Flow Rate Vent Rate Mechanical Rate PEEP Pressure Support Vent Sodium 140 Potassium 5.6 H Chloride 105 Carbon Dioxide 30 Anion Gap 5 L BUN 34 H D Creatinine 1.5 H Creat Clearance w eGFR POC Glucometer 391.18225 Random Glucose 313 H* Hemoglobin A1c % Lactic Acid Calcium 8.6 Phosphorus Magnesium Total Bilirubin AST ALT Alkaline Phosphatase Creatine Kinase Creatine Kinase Index CK-MB (CK-2) Troponin I Total Protein Albumin Urine Color Urine Appearance Urine pH Ur Specific [place] Urine Protein Urine Glucose (UA) Urine Ketones Urine Blood Urine Nitrite Urine Bilirubin Urine Urobilinogen Ur Leukocyte Esterase Urine WBC (Auto) Urine RBC (Auto) Ur Epithelial Cells Urine Bacteria Urine Mucus Blood Type Antibody Screen 05/29/17 05/29/17 05/29/17 03:25 03:25 03:28 WBC 10.6 H RBC 3.10 L Hgb 9.7 L Hct 29.2 L MCV 94.2 MCH 31.2 MCHC 33.1 RDW 15.6 Plt Count 152 MPV 8.6 Absolute Neuts (auto) Absolute Lymphs (auto) Absolute Monos (auto) Absolute Eos (auto) Absolute Basos (auto) Neutrophils % Lymphocytes % Monocytes % Eosinophils % Basophils % PT with INR INR PTT (Actin FS) Puncture Site ABG pH ABG pCO2 at Pt Temp ABG pO2 at Pt Temp ABG HCO3 ABG O2 Sat (Measured) ABG O2 Content ABG Base Excess Maulik Test VBG pH POC VBG pCO2 POC VBG pO2 Mixed VBG HCO3 O2 Delivery Device Oxygen Flow Rate Vent Rate Mechanical Rate PEEP Pressure Support Vent Sodium 143 Potassium 5.0 Chloride 106 Carbon Dioxide 30 Anion Gap 7 L BUN 36 H Creatinine 1.7 H Creat Clearance w eGFR POC Glucometer 326.34736 Random Glucose 293 H Hemoglobin A1c % Lactic Acid Calcium 8.5 Phosphorus Magnesium Total Bilirubin AST ALT Alkaline Phosphatase Creatine Kinase Creatine Kinase Index CK-MB (CK-2) Troponin I Total Protein Albumin Urine Color Urine Appearance Urine pH Ur Specific [place] Urine Protein Urine Glucose (UA) Urine Ketones Urine Blood Urine Nitrite Urine Bilirubin Urine Urobilinogen Ur Leukocyte Esterase Urine WBC (Auto) Urine RBC (Auto) Ur Epithelial Cells Urine Bacteria Urine Mucus Blood Type Antibody Screen 05/29/17 05/29/17 05/29/17 05:27 06:20 06:20 WBC 10.7 H RBC 3.17 L Hgb 10.0 L Hct 30.1 L MCV 94.9 MCH 31.5 MCHC 33.2 RDW 15.9 Plt Count 164 MPV 10.1 D Absolute Neuts (auto) 9.3 L D Absolute Lymphs (auto) 0.3 L Absolute Monos (auto) 1.1 L Absolute Eos (auto) 0.0 Absolute Basos (auto) 0.0 L Neutrophils % 86.9 H Lymphocytes % 3.3 L D Monocytes % 9.8 D Eosinophils % 0.0 D Basophils % 0.0 PT with INR 14.00 H INR 1.24 H PTT (Actin FS) 36.1 H Puncture Site ABG pH ABG pCO2 at Pt Temp ABG pO2 at Pt Temp ABG HCO3 ABG O2 Sat (Measured) ABG O2 Content ABG Base Excess Maulik Test VBG pH POC VBG pCO2 POC VBG pO2 Mixed VBG HCO3 O2 Delivery Device Oxygen Flow Rate Vent Rate Mechanical Rate PEEP Pressure Support Vent Sodium Potassium Chloride Carbon Dioxide Anion Gap BUN Creatinine Creat Clearance w eGFR POC Glucometer [phone] Random Glucose Hemoglobin A1c % Lactic Acid Calcium Phosphorus Magnesium Total Bilirubin AST ALT Alkaline Phosphatase Creatine Kinase Creatine Kinase Index CK-MB (CK-2) Troponin I Total Protein Albumin Urine Color Urine Appearance Urine pH Ur Specific [place] Urine Protein Urine Glucose (UA) Urine Ketones Urine Blood Urine Nitrite Urine Bilirubin Urine Urobilinogen Ur Leukocyte Esterase Urine WBC (Auto) Urine RBC (Auto) Ur Epithelial Cells Urine Bacteria Urine Mucus Blood Type Antibody Screen 05/29/17 05/29/17 05/29/17 06:20 06:20 06:20 WBC RBC Hgb Hct MCV MCH MCHC RDW Plt Count MPV Absolute Neuts (auto) Absolute Lymphs (auto) Absolute Monos (auto) Absolute Eos (auto) Absolute Basos (auto) Neutrophils % Lymphocytes % Monocytes % Eosinophils % Basophils % PT with INR INR PTT (Actin FS) Puncture Site ABG pH ABG pCO2 at Pt Temp ABG pO2 at Pt Temp ABG HCO3 ABG O2 Sat (Measured) ABG O2 Content ABG Base Excess Maulik Test VBG pH POC VBG pCO2 POC VBG pO2 Mixed VBG HCO3 O2 Delivery Device Oxygen Flow Rate Vent Rate Mechanical Rate PEEP Pressure Support Vent Sodium 143 Potassium 5.2 H Chloride 105 Carbon Dioxide 31 Anion Gap 7 L BUN 37 H Creatinine 1.6 H Creat Clearance w eGFR 42.58 POC Glucometer Random Glucose 263 H Hemoglobin A1c % Lactic Acid 3.2 H* Calcium 8.4 L Phosphorus 3.8 Magnesium 1.8 Total Bilirubin 0.5 AST 80 H D ALT 82 H D Alkaline Phosphatase 208 H D Creatine Kinase 230 Creatine Kinase Index CK-MB (CK-2) Troponin I 0.45 H D Total Protein 4.7 L Albumin 1.9 L Urine Color Urine Appearance Urine pH Ur Specific [place] Urine Protein Urine Glucose (UA) Urine Ketones Urine Blood Urine Nitrite Urine Bilirubin Urine Urobilinogen Ur Leukocyte Esterase Urine WBC (Auto) Urine RBC (Auto) Ur Epithelial Cells Urine Bacteria Urine Mucus Blood Type Antibody Screen 05/29/17 05/29/17 05/29/17 06:20 08:20 11:03 WBC RBC Hgb Hct MCV MCH MCHC RDW Plt Count MPV Absolute Neuts (auto) Absolute Lymphs (auto) Absolute Monos (auto) Absolute Eos (auto) Absolute Basos (auto) Neutrophils % Lymphocytes % Monocytes % Eosinophils % Basophils % PT with INR INR PTT (Actin FS) Puncture Site Left radial ABG pH 7.39 ABG pCO2 at Pt Temp 49.2 H ABG pO2 at Pt Temp 211.0 H* ABG HCO3 28.8 H ABG O2 Sat (Measured) 99.9 H* ABG O2 Content 14.1 L ABG Base Excess 3.7 H Maulik Test Positive VBG pH POC VBG pCO2 POC VBG pO2 Mixed VBG HCO3 O2 Delivery Device Vent Oxygen Flow Rate 60 Vent Rate 18 Mechanical Rate Yes PEEP 10.0 Pressure Support Vent 350 Sodium Potassium Chloride Carbon Dioxide Anion Gap BUN Creatinine Creat Clearance w eGFR POC Glucometer 240.46382 Random Glucose Hemoglobin A1c % 9.2 H D Lactic Acid Calcium Phosphorus Magnesium Total Bilirubin AST ALT Alkaline Phosphatase Creatine Kinase Creatine Kinase Index CK-MB (CK-2) Troponin I Total Protein Albumin Urine Color Urine Appearance Urine pH Ur Specific [place] Urine Protein Urine Glucose (UA) Urine Ketones Urine Blood Urine Nitrite Urine Bilirubin Urine Urobilinogen Ur Leukocyte Esterase Urine WBC (Auto) Urine RBC (Auto) Ur Epithelial Cells Urine Bacteria Urine Mucus Blood Type Antibody Screen Problem List - Problems (1) Acute respiratory failure with hypoxia Code(s): J96.01 - ACUTE RESPIRATORY FAILURE WITH HYPOXIA (2) Cardiac arrest Code(s): I46.9 - CARDIAC ARREST, CAUSE UNSPECIFIED (3) Acute pulmonary edema Code(s): J81.0 - ACUTE PULMONARY EDEMA (4) Acute on chronic systolic heart failure Code(s): I50.23 - ACUTE ON CHRONIC SYSTOLIC (CONGESTIVE) HEART FAILURE (5) Atrial fibrillation Code(s): I48.91 - UNSPECIFIED ATRIAL FIBRILLATION (6) Elevated troponin Code(s): R74.8 - ABNORMAL LEVELS OF OTHER SERUM ENZYMES (7) Hyperkalemia Code(s): E87.5 - HYPERKALEMIA (8) Hypertension Code(s): I10 - ESSENTIAL (PRIMARY) HYPERTENSION (9) Diabetes Code(s): E11.9 - TYPE 2 DIABETES MELLITUS WITHOUT COMPLICATIONS Assessment/Plan Acute Hypoxic and Hypercapneic Respiratory Failure s/p PEA Cardiopulmonary Arrest Acute Pulmonary Edema Acute on Chronic Systolic Heart Failure Shock - Likely Cardiogenic Acute [place] Acute Kidney Injury Lactic Acidosis Elevated LFTs Atrial Fibrillation HTN DM - echocardiogram - levophed gtt to maintain MAP >65 - May need to add inotropic agent - monitor urine output, creatinine - Sedation vacation to assess mental status - IVF - Follow lactic acid - ICU monitoring - Overall prognosis appears poor Dr Aguilar Critical care time spent in reviewing chart, evaluating patient and formulating plan 40 min
[2017-05-29] MEDS ORDERED: SODIUM CHLORIDE 1,000 ML IV SCH (12:00)
--- NOTE | 2017-05-29 12:05 | CON.CARD ---
Cardiology Consult (text) - Consultation Consultation Note: cc: resp distress hpi: 71 m hx dm, hld, syst chf (ICM), cad s/p pci ([place]ath [facility] 08/2014: [place] to [facility]; residual 30-50 dlcx, 80-90 [facility]-->staged pci 11/2014 with [place] to [facility]) here with resp distress. Hx from charts as pt intubated/sedated. Pt was having sob, cp, leg swelling so went to pmd yesterday then was taking cab to ER and coded. Found to be in PEA and had ACLS and pulse regained. Now intubated and on pressors in icu. Saw me for cardiology in past, poor f/u. pmh: per hpi psh: eye surgery social: no tob fam: +dm, no cad, scd ros: per hpi; unable to obtain 2/2 sedation meds: Home Medications Medication Instructions Recorded Carvedilol 6.25 mg PO BID 05/28/17 Escitalopram Oxalate [Lexapro -] 10 mg PO DAILY 05/28/17 Furosemide [Lasix] 80 mg PO DAILY 05/28/17 Potassium Chloride 20 meq PO DAILY 05/28/17 Sacubitril/Valsartan [Entresto 24 1 each PO DAILY 05/28/17 mg-26 mg Tablet] Sitagliptin Phos/Metformin HCl 1 each PO DAILY 05/28/17 [Janumet 50-500 mg Tablet] pe: Vital Signs Temp 94.7 F L 05/29/17 10:00 Pulse 73 05/29/17 11:14 Resp 18 05/29/17 10:00 BP 97/60 05/29/17 11:14 Pulse Ox 99 05/29/17 09:40 Intake & Output 05/28/17 05/29/17 05/29/17 23:59 11:59 23:59 Intake Total 620 553 Output Total 220 300 Balance 400 253 Weight 160 lb 196 lb 3.382 oz Intake: IV 120 553 DIPRIVAN - 1,000,000 mcg 112 In 100 ml @ 5 MCG/KG/MIN 2.177 mls/hr IVPB TITR PHILL Rx#:[id number] Levophed - 8,000 Mcg In 120 392 D5w - 492 ml @ 5 MCG/MIN 18.75 mls/hr IV TITR PHILL Rx#:[id number] Versed - 100 mg In Normal 49 Saline - 100 ml @ 1 MG/ HR 1 mls/hr IVPB TITR PHILL Rx#:[id number] IVPB 500 Output: Urine 220 300 [place] 220 300 Other: Voiding Method Indwelling Catheter Indwelling Catheter Height 5 ft 5 in 5 ft 5 in Body Mass Index (BMI) 26.6 32.6 Weight Measurement Method Built in [facility] Weight Measurement Method Est/Stated by Patient nad, no jvd rrr s1s2 no mrg cta bl anteriorly, vented sedated no le e/c/c abd nt nd pos bs no diaphoresis/jaundice pos dp/pt edema in abd wall Laboratory Last Values WBC 10.7 K/mm3 (4.0-10.0) H 05/29/17 06:20 RBC 3.17 M/mm3 (4.00-5.60) L 05/29/17 06:20 Hgb 10.0 GM/dL (11.7-16.9) L 05/29/17 06:20 Hct 30.1 % (35.4-49) L 05/29/17 06:20 MCV 94.9 fl (80-96) 05/29/17 06:20 MCH 31.5 pg (25.7-33.7) 05/29/17 06:20 MCHC 33.2 g/dl (32.0-35.9) 05/29/17 06:20 RDW 15.9 % (11.9-15.9) 05/29/17 06:20 Plt Count 164 K/MM3 (134-434) 05/29/17 06:20 MPV 10.1 fl (7.5-11.1) D 05/29/17 06:20 Absolute Neuts (auto) 9.3 # (42.8-82.8) L D 05/29/17 06:20 Absolute Lymphs (auto) 0.3 (8-40) L 05/29/17 06:20 Absolute Monos (auto) 1.1 # (3.8-10.2) L 05/29/17 06:20 Absolute Eos (auto) 0.0 # (0-4.5) 05/29/17 06:20 Absolute Basos (auto) 0.0 # (0.1-1) L 05/29/17 06:20 Neutrophils % 86.9 % (42.8-82.8) H 05/29/17 06:20 Lymphocytes % 3.3 % (8-40) L D 05/29/17 06:20 Monocytes % 9.8 % (3.8-10.2) D 05/29/17 06:20 Eosinophils % 0.0 % (0-4.5) D 05/29/17 06:20 Basophils % 0.0 % (0-2.0) 05/29/17 06:20 PT with INR 14.00 SEC (9.98-11.88) H 05/29/17 06:20 INR 1.24 (0.82-1.09) H 05/29/17 06:20 PTT (Actin FS) 36.1 SECONDS (26.9-34.4) H 05/29/17 06:20 Puncture Site Left radial 05/29/17 08:20 ABG pH 7.39 (7.35-7.45) 05/29/17 08:20 ABG pCO2 at Pt Temp 49.2 mmHg (35-45) H 05/29/17 08:20 ABG pO2 at Pt Temp 211.0 mmHg (70-100) H* 05/29/17 08:20 ABG HCO3 28.8 meq/L (22-26) H 05/29/17 08:20 ABG O2 Sat (Measured) 99.9 % (90-98.9) H* 05/29/17 08:20 ABG O2 Content 14.1 % vol (15-22) L 05/29/17 08:20 ABG Base Excess 3.7 meq/l (-2-2) H 05/29/17 08:20 Maulik Test Positive 05/29/17 08:20 VBG pH 7.33 (7.32-7.42) 05/29/17 01:00 POC VBG pCO2 46.7 mmHg (38-52) D 05/29/17 01:00 POC VBG pO2 52.6 mmHg (28-48) H D 05/29/17 01:00 Mixed VBG HCO3 23.8 meq/L (19-25) 05/29/17 01:00 O2 Delivery Device Vent 05/29/17 08:20 Oxygen Flow Rate 60 05/29/17 08:20 Vent Rate 18 05/29/17 08:20 Mechanical Rate Yes 05/29/17 08:20 PEEP 10.0 cmH2O 05/29/17 08:20 Pressure Support Vent 350 05/29/17 08:20 Sodium 143 mmol/L (136-145) 05/29/17 06:20 Potassium 5.2 mmol/L (3.5-5.1) H 05/29/17 06:20 Chloride 105 mmol/L (98-107) 05/29/17 06:20 Carbon Dioxide 31 mmol/L (21-32) 05/29/17 06:20 Anion Gap 7 (8-16) L 05/29/17 06:20 BUN 37 mg/dL (7-18) H 05/29/17 06:20 Creatinine 1.6 mg/dL (0.7-1.3) H 05/29/17 06:20 Creat Clearance w eGFR 42.58 (>60) 05/29/17 06:20 POC Glucometer 240.99565 UNITS (80-120) 05/29/17 11:03 Random Glucose 263 mg/dL (74-106) H 05/29/17 06:20 Hemoglobin A1c % 9.2 % (4.8-6.0) H D 05/29/17 06:20 Lactic Acid 3.2 mmol/L (0.4-2.0) H* 05/29/17 06:20 Calcium 8.4 mg/dL (8.5-10.1) L 05/29/17 06:20 Phosphorus 3.8 mg/dL (2.5-4.9) 05/29/17 06:20 Magnesium 1.8 mg/dL (1.8-2.4) 05/29/17 06:20 Total Bilirubin 0.5 mg/dL (0.2-1.0) 05/29/17 06:20 AST 80 U/L (15-37) H D 05/29/17 06:20 ALT 82 U/L (12-78) H D 05/29/17 06:20 Alkaline Phosphatase 208 U/L (45-117) H D 05/29/17 06:20 Creatine Kinase 230 IU/L (39-308) 05/29/17 06:20 Creatine Kinase Index 5.9 % (0.0-5.0) H 05/28/17 21:25 CK-MB (CK-2) 17.054 ng/mL (0.5-3.6) H 05/28/17 21:25 Troponin I 0.45 ng/ml (0.00-0.05) H D 05/29/17 06:20 Total Protein 4.7 g/dl (6.4-8.2) L 05/29/17 06:20 Albumin 1.9 g/dl (3.4-5.0) L 05/29/17 06:20 Urine Color [place]ille 05/28/17 13:40 Urine Appearance Turbid 05/28/17 13:40 Urine pH 5.0 (5.0-8.0) 05/28/17 13:40 Ur Specific [place] 1.013 (1.001-1.035) 05/28/17 13:40 Urine Protein 3+ (NEGATIVE) H 05/28/17 13:40 Urine Glucose (UA) 1+ (NEGATIVE) H 05/28/17 13:40 Urine Ketones Negative (NEGATIVE) 05/28/17 13:40 Urine Blood 2+ (NEGATIVE) H 05/28/17 13:40 Urine Nitrite Negative (NEGATIVE) 05/28/17 13:40 Urine Bilirubin Negative (NEGATIVE) 05/28/17 13:40 Urine Urobilinogen Negative mg/dL (0.2-1.0) 05/28/17 13:40 Ur Leukocyte Esterase 1+ (NEGATIVE) H 05/28/17 13:40 Urine WBC (Auto) 600 /hpf (3-5) 05/28/17 13:40 Urine RBC (Auto) 26 /hpf (0-3) 05/28/17 13:40 Ur Epithelial Cells Rare /HPF (FEW) 05/28/17 13:40 Urine Bacteria Many /hpf (NONE SEEN) 05/28/17 13:40 Urine Mucus Rare 05/28/17 13:40 Blood Type O POSITIVE 05/28/17 14:15 Antibody Screen Negative 05/28/17 14:15 ecg 05/28/17: sr, nl intervals, nonspec tw changes cxr: improving left hemithorax le duplex: no dvt cxr: minimal bibasilar atelectasis echo 10/2013: nl lv s/f, nl rv s/f, mild mr/tr echo 10/2016: lvef 40, anteroseptal hk, g2dd, nl rv, mild lae, mild-mod mr, mild tr, mod phtn, ivc mildly dilated echo 05/2017: mild lvh, sev dec lvef, global hk, rv mildly dec fcn, mild mr, mild tr tele: sr est cct 35 mins a/p: 71 m hx dm, hld, syst chf (ICM), cad s/p pci ([place]ath [place] 08/2014: [place] to mlad; residual 30-50 dlcx, 80-90 mrca-->staged pci 11/2014 with [place] to [facility]) here with resp distress. resp distress, PEA arrest, systolic chf: -currently intubated, sedated. on levo -getting ivfs -got tpa in ER for possible PE -possible chf component as well. if bp allows would give another dose of lasix 40 iv (got 40 iv overnight). If bp remains low would start inotrope with dobutamine to allow for diuresis. cad s/p pci: -trop mildly elevated here with normal ck, likely demand from PEA arrest, hypotension. Does not appear to be acs. -cont asa, statin, bb, entresto when pt more stable and bp improves elevated lfts: -likely from hypotension -hold statin, monitor trend kandice: -likely from hypotension/cardiac arrest -monitor cr trend hld: -resume statin when stable, lfts normalized
[2017-05-29] MEDS: PIPERACILLIN/TAZOB 3.375 GM 3.375 GM in DEXTROSE 5%-WATER - 100 ML IVPB SCH ×2 (12:16→17:40)
--- NOTE | 2017-05-29 13:46 | EKG ---
Test Reason : Blood Pressure : / mmHG Vent. Rate : 070 BPM Atrial Rate : 070 BPM P-R Int : 146 ms QRS Dur : 078 ms QT Int : 418 ms P-R-T Axes : 032 -50 015 degrees QTc Int : 451 ms NORMAL SINUS RHYTHM LEFT AXIS DEVIATION ANTEROLATERAL INFARCT (CITED ON OR BEFORE 25-AUG-2014) ABNORMAL ECG Confirmed by KATE CROWLEY MD [id number]) on 05/29/2017 1:46:50 PM Referred By: Confirmed By:KATE CROWLEY MD
--- NOTE | 2017-05-29 13:48 | PN ---
Physical Exam: SUBJECTIVE: Patient seen and examined in ICU Patient intubated, sedated, and on pressors. Attempted sedation vacation today, but patient placed back on sedation after increasing RR and mild muscle jerking. OBJECTIVE: Vital Signs Period Temp Pulse Resp BP Sys/Scruggs Pulse Ox Last 24 Hr 93.0 F-97.0 F 66-83 12-26 85-151/52-89 90-100 GENERAL: The patient is intubated and sedated HEAD: Normal with no signs of trauma. EYES: +right eye enucleation, Left eye minimally responsive NECK: Trachea midline, supple. LUNGS: Breath sounds equal, scattered rhonchi throughout, no wheezes, no crackles, no accessory muscle use. HEART: Tachycardic, S1, S2 without murmur, rub or gallop. ABDOMEN: Soft, nontender, nondistended, normoactive bowel sounds, no guarding, no rebound, no hepatosplenomegaly, no masses. Laboratory Results - last 24 hr 05/28/17 05/28/17 05/28/17 13:40 14:15 14:15 WBC 8.5 D RBC 3.29 L Hgb 10.1 L D Hct 31.8 L MCV 96.5 H MCH 30.6 MCHC 31.7 L RDW 16.3 H D Plt Count 169 MPV 9.3 Absolute Neuts (auto) 7.6 L Absolute Lymphs (auto) 0.4 L Absolute Monos (auto) 0.4 L Absolute Eos (auto) 0.0 Absolute Basos (auto) 0.1 Neutrophils % 89.4 H D Lymphocytes % 4.3 L D Monocytes % 5.0 Eosinophils % 0.3 D Basophils % 1.0 PT with INR 13.70 H INR 1.21 H PTT (Actin FS) 38.3 H Puncture Site ABG pH ABG pCO2 at Pt Temp ABG pO2 at Pt Temp ABG HCO3 ABG O2 Sat (Measured) ABG O2 Content ABG Base Excess Maulik Test VBG pH POC VBG pCO2 POC VBG pO2 Mixed VBG HCO3 O2 Delivery Device Oxygen Flow Rate Vent Rate Mechanical Rate PEEP Pressure Support Vent Sodium Potassium Chloride Carbon Dioxide Anion Gap BUN Creatinine Creat Clearance w eGFR POC Glucometer Random Glucose Hemoglobin A1c % Lactic Acid Calcium Phosphorus Magnesium Total Bilirubin AST ALT Alkaline Phosphatase Creatine Kinase Creatine Kinase Index CK-MB (CK-2) Troponin I Total Protein Albumin Urine Color Camille Urine Appearance Turbid Urine pH 5.0 Ur Specific Coila 1.013 Urine Protein 3+ H Urine Glucose (UA) 1+ H Urine Ketones Negative Urine Blood 2+ H Urine Nitrite Negative Urine Bilirubin Negative Urine Urobilinogen Negative Ur Leukocyte Esterase 1+ H Urine WBC (Auto) 600 Urine RBC (Auto) 26 Ur Epithelial Cells Rare Urine Bacteria Many Urine Mucus Rare Blood Type Antibody Screen 05/28/17 05/28/17 05/28/17 14:15 14:15 14:15 WBC RBC Hgb Hct MCV MCH MCHC RDW Plt Count MPV Absolute Neuts (auto) Absolute Lymphs (auto) Absolute Monos (auto) Absolute Eos (auto) Absolute Basos (auto) Neutrophils % Lymphocytes % Monocytes % Eosinophils % Basophils % PT with INR INR PTT (Actin FS) Puncture Site ABG pH ABG pCO2 at Pt Temp ABG pO2 at Pt Temp ABG HCO3 ABG O2 Sat (Measured) ABG O2 Content ABG Base Excess Maulik Test VBG pH 7.23 L* POC VBG pCO2 67.5 H* POC VBG pO2 41.6 Mixed VBG HCO3 27.5 H O2 Delivery Device Oxygen Flow Rate Vent Rate Mechanical Rate PEEP Pressure Support Vent Sodium 142 Potassium 5.8 H D Chloride 106 Carbon Dioxide 28 Anion Gap 8 BUN 28 H D Creatinine 1.5 H Creat Clearance w eGFR 45.87 POC Glucometer Random Glucose 332 H* Hemoglobin A1c % Lactic Acid Calcium 8.6 Phosphorus Magnesium Total Bilirubin 0.6 AST 241 H D ALT 120 H D Alkaline Phosphatase 289 H D Creatine Kinase 161 Creatine Kinase Index 5.2 H CK-MB (CK-2) 8.389 H Troponin I 0.81 H* D Total Protein 4.9 L Albumin 2.0 L D Urine Color Urine Appearance Urine pH Ur Specific Coila Urine Protein Urine Glucose (UA) Urine Ketones Urine Blood Urine Nitrite Urine Bilirubin Urine Urobilinogen Ur Leukocyte Esterase Urine WBC (Auto) Urine RBC (Auto) Ur Epithelial Cells Urine Bacteria Urine Mucus Blood Type O POSITIVE Antibody Screen Negative 05/28/17 05/28/17 05/28/17 14:15 17:36 21:25 WBC RBC Hgb Hct MCV MCH MCHC RDW Plt Count MPV Absolute Neuts (auto) Absolute Lymphs (auto) Absolute Monos (auto) Absolute Eos (auto) Absolute Basos (auto) Neutrophils % Lymphocytes % Monocytes % Eosinophils % Basophils % PT with INR INR PTT (Actin FS) Puncture Site ABG pH ABG pCO2 at Pt Temp ABG pO2 at Pt Temp ABG HCO3 ABG O2 Sat (Measured) ABG O2 Content ABG Base Excess Maulik Test VBG pH POC VBG pCO2 POC VBG pO2 Mixed VBG HCO3 O2 Delivery Device Oxygen Flow Rate Vent Rate Mechanical Rate PEEP Pressure Support Vent Sodium Potassium Chloride Carbon Dioxide Anion Gap BUN Creatinine Creat Clearance w eGFR POC Glucometer Random Glucose Hemoglobin A1c % Lactic Acid 3.1 H* 1.6 Calcium Phosphorus Magnesium Total Bilirubin AST ALT Alkaline Phosphatase Creatine Kinase 287 Creatine Kinase Index 5.9 H CK-MB (CK-2) 17.054 H Troponin I 1.15 H* D Total Protein Albumin Urine Color Urine Appearance Urine pH Ur Specific Coila Urine Protein Urine Glucose (UA) Urine Ketones Urine Blood Urine Nitrite Urine Bilirubin Urine Urobilinogen Ur Leukocyte Esterase Urine WBC (Auto) Urine RBC (Auto) Ur Epithelial Cells Urine Bacteria Urine Mucus Blood Type Antibody Screen 05/28/17 05/29/17 05/29/17 21:25 01:00 01:11 WBC RBC Hgb Hct MCV MCH MCHC RDW Plt Count MPV Absolute Neuts (auto) Absolute Lymphs (auto) Absolute Monos (auto) Absolute Eos (auto) Absolute Basos (auto) Neutrophils % Lymphocytes % Monocytes % Eosinophils % Basophils % PT with INR INR PTT (Actin FS) Puncture Site ABG pH ABG pCO2 at Pt Temp ABG pO2 at Pt Temp ABG HCO3 ABG O2 Sat (Measured) ABG O2 Content ABG Base Excess Maulik Test VBG pH 7.33 POC VBG pCO2 46.7 D POC VBG pO2 52.6 H D Mixed VBG HCO3 23.8 O2 Delivery Device Oxygen Flow Rate Vent Rate Mechanical Rate PEEP Pressure Support Vent Sodium 140 Potassium 5.6 H Chloride 105 Carbon Dioxide 30 Anion Gap 5 L BUN 34 H D Creatinine 1.5 H Creat Clearance w eGFR POC Glucometer [phone] Random Glucose 313 H* Hemoglobin A1c % Lactic Acid Calcium 8.6 Phosphorus Magnesium Total Bilirubin AST ALT Alkaline Phosphatase Creatine Kinase Creatine Kinase Index CK-MB (CK-2) Troponin I Total Protein Albumin Urine Color Urine Appearance Urine pH Ur Specific Coila Urine Protein Urine Glucose (UA) Urine Ketones Urine Blood Urine Nitrite Urine Bilirubin Urine Urobilinogen Ur Leukocyte Esterase Urine WBC (Auto) Urine RBC (Auto) Ur Epithelial Cells Urine Bacteria Urine Mucus Blood Type Antibody Screen 05/29/17 05/29/17 05/29/17 03:25 03:25 03:28 WBC 10.6 H RBC 3.10 L Hgb 9.7 L Hct 29.2 L MCV 94.2 MCH 31.2 MCHC 33.1 RDW 15.6 Plt Count 152 MPV 8.6 Absolute Neuts (auto) Absolute Lymphs (auto) Absolute Monos (auto) Absolute Eos (auto) Absolute Basos (auto) Neutrophils % Lymphocytes % Monocytes % Eosinophils % Basophils % PT with INR INR PTT (Actin FS) Puncture Site ABG pH ABG pCO2 at Pt Temp ABG pO2 at Pt Temp ABG HCO3 ABG O2 Sat (Measured) ABG O2 Content ABG Base Excess Maulik Test VBG pH POC VBG pCO2 POC VBG pO2 Mixed VBG HCO3 O2 Delivery Device Oxygen Flow Rate Vent Rate Mechanical Rate PEEP Pressure Support Vent Sodium 143 Potassium 5.0 Chloride 106 Carbon Dioxide 30 Anion Gap 7 L BUN 36 H Creatinine 1.7 H Creat Clearance w eGFR POC Glucometer [phone] Random Glucose 293 H Hemoglobin A1c % Lactic Acid Calcium 8.5 Phosphorus Magnesium Total Bilirubin AST ALT Alkaline Phosphatase Creatine Kinase Creatine Kinase Index CK-MB (CK-2) Troponin I Total Protein Albumin Urine Color Urine Appearance Urine pH Ur Specific Coila Urine Protein Urine Glucose (UA) Urine Ketones Urine Blood Urine Nitrite Urine Bilirubin Urine Urobilinogen Ur Leukocyte Esterase Urine WBC (Auto) Urine RBC (Auto) Ur Epithelial Cells Urine Bacteria Urine Mucus Blood Type Antibody Screen 05/29/17 05/29/17 05/29/17 05:27 06:20 06:20 WBC 10.7 H RBC 3.17 L Hgb 10.0 L Hct 30.1 L MCV 94.9 MCH 31.5 MCHC 33.2 RDW 15.9 Plt Count 164 MPV 10.1 D Absolute Neuts (auto) 9.3 L D Absolute Lymphs (auto) 0.3 L Absolute Monos (auto) 1.1 L Absolute Eos (auto) 0.0 Absolute Basos (auto) 0.0 L Neutrophils % 86.9 H Lymphocytes % 3.3 L D Monocytes % 9.8 D Eosinophils % 0.0 D Basophils % 0.0 PT with INR 14.00 H INR 1.24 H PTT (Actin FS) 36.1 H Puncture Site ABG pH ABG pCO2 at Pt Temp ABG pO2 at Pt Temp ABG HCO3 ABG O2 Sat (Measured) ABG O2 Content ABG Base Excess Maulik Test VBG pH POC VBG pCO2 POC VBG pO2 Mixed VBG HCO3 O2 Delivery Device Oxygen Flow Rate Vent Rate Mechanical Rate PEEP Pressure Support Vent Sodium Potassium Chloride Carbon Dioxide Anion Gap BUN Creatinine Creat Clearance w eGFR POC Glucometer [phone] Random Glucose Hemoglobin A1c % Lactic Acid Calcium Phosphorus Magnesium Total Bilirubin AST ALT Alkaline Phosphatase Creatine Kinase Creatine Kinase Index CK-MB (CK-2) Troponin I Total Protein Albumin Urine Color Urine Appearance Urine pH Ur Specific Coila Urine Protein Urine Glucose (UA) Urine Ketones Urine Blood Urine Nitrite Urine Bilirubin Urine Urobilinogen Ur Leukocyte Esterase Urine WBC (Auto) Urine RBC (Auto) Ur Epithelial Cells Urine Bacteria Urine Mucus Blood Type Antibody Screen 05/29/17 05/29/17 05/29/17 06:20 06:20 06:20 WBC RBC Hgb Hct MCV MCH MCHC RDW Plt Count MPV Absolute Neuts (auto) Absolute Lymphs (auto) Absolute Monos (auto) Absolute Eos (auto) Absolute Basos (auto) Neutrophils % Lymphocytes % Monocytes % Eosinophils % Basophils % PT with INR INR PTT (Actin FS) Puncture Site ABG pH ABG pCO2 at Pt Temp ABG pO2 at Pt Temp ABG HCO3 ABG O2 Sat (Measured) ABG O2 Content ABG Base Excess Maulik Test VBG pH POC VBG pCO2 POC VBG pO2 Mixed VBG HCO3 O2 Delivery Device Oxygen Flow Rate Vent Rate Mechanical Rate PEEP Pressure Support Vent Sodium 143 Potassium 5.2 H Chloride 105 Carbon Dioxide 31 Anion Gap 7 L BUN 37 H Creatinine 1.6 H Creat Clearance w eGFR 42.58 POC Glucometer Random Glucose 263 H Hemoglobin A1c % Lactic Acid 3.2 H* Calcium 8.4 L Phosphorus 3.8 Magnesium 1.8 Total Bilirubin 0.5 AST 80 H D ALT 82 H D Alkaline Phosphatase 208 H D Creatine Kinase 230 Creatine Kinase Index 6.1 H* CK-MB (CK-2) 14.158 H Troponin I 0.45 H D Total Protein 4.7 L Albumin 1.9 L Urine Color Urine Appearance Urine pH Ur Specific Coila Urine Protein Urine Glucose (UA) Urine Ketones Urine Blood Urine Nitrite Urine Bilirubin Urine Urobilinogen Ur Leukocyte Esterase Urine WBC (Auto) Urine RBC (Auto) Ur Epithelial Cells Urine Bacteria Urine Mucus Blood Type Antibody Screen 05/29/17 05/29/17 05/29/17 06:20 08:20 11:03 WBC RBC Hgb Hct MCV MCH MCHC RDW Plt Count MPV Absolute Neuts (auto) Absolute Lymphs (auto) Absolute Monos (auto) Absolute Eos (auto) Absolute Basos (auto) Neutrophils % Lymphocytes % Monocytes % Eosinophils % Basophils % PT with INR INR PTT (Actin FS) Puncture Site Left radial ABG pH 7.39 ABG pCO2 at Pt Temp 49.2 H ABG pO2 at Pt Temp 211.0 H* ABG HCO3 28.8 H ABG O2 Sat (Measured) 99.9 H* ABG O2 Content 14.1 L ABG Base Excess 3.7 H Maulik Test Positive VBG pH POC VBG pCO2 POC VBG pO2 Mixed VBG HCO3 O2 Delivery Device Vent Oxygen Flow Rate 60 Vent Rate 18 Mechanical Rate Yes PEEP 10.0 Pressure Support Vent 350 Sodium Potassium Chloride Carbon Dioxide Anion Gap BUN Creatinine Creat Clearance w eGFR POC Glucometer [phone] Random Glucose Hemoglobin A1c % 9.2 H D Lactic Acid Calcium Phosphorus Magnesium Total Bilirubin AST ALT Alkaline Phosphatase Creatine Kinase Creatine Kinase Index CK-MB (CK-2) Troponin I Total Protein Albumin Urine Color Urine Appearance Urine pH Ur Specific Coila Urine Protein Urine Glucose (UA) Urine Ketones Urine Blood Urine Nitrite Urine Bilirubin Urine Urobilinogen Ur Leukocyte Esterase Urine WBC (Auto) Urine RBC (Auto) Ur Epithelial Cells Urine Bacteria Urine Mucus Blood Type Antibody Screen Active Medications Generic Name Dose Route Start Last Admin Trade Name Freq PRN Reason Stop Dose Admin Chlorhexidine Gluconate 1 applic 05/28/17 23:30 05/29/17 03:59 Hibiclens For Decolonization - TP 1 applic HS PHILL Administration Dopamine HCl/Dextrose 400,000 mcg in 250 mls @ 13.608 mls/hr 05/28/17 12:45 05/28/17 12:35 Dopamine 400 Mg/D5w - IVPB Not Given TITR PHILL Protocol 5 MCG/KG/MIN Norepinephrine Bitartrate 8, 500 mls @ 18.75 mls/hr 05/28/17 14:45 05/29/17 11:14 000 mcg/ Dextrose IV 15 mcg/min TITR PHILL 56.25 mls/hr Protocol Administration 5 MCG/MIN Midazolam HCl 100 mg/ Sodium 100 mls @ 1 mls/hr 05/29/17 00:15 05/29/17 11:00 Chloride IVPB 0 mg/hr TITR PHILL 0 mls/hr Protocol Titration 1 MG/HR Propofol 1,000,000 mcg in 100 mls @ 2.177 mls/hr 05/29/17 00:15 05/29/17 00: 00 Diprivan - IVPB 68.89 mcg/kg/min TITR PHILL 30 mls/hr Protocol Administration 5 MCG/KG/MIN Piperacillin Sod/Tazobactam 100 mls @ 200 mls/hr 05/29/17 11:45 05/29/17 12: 16 Sod 3.375 gm/ Dextrose IVPB 200 mls/hr Q8H-IV PHILL Administration Sodium Chloride 1,000 mls @ 100 mls/hr 05/29/17 12:00 Normal Saline - IV ASDIR PHILL Insulin Aspart 1 vial 05/29/17 07:00 05/29/17 11:06 Novolog Vial Sliding Scale - SQ 3 units TIDAC PHILL Administration Protocol Insulin Detemir 10 units 05/29/17 22:00 Levemir Vial SQ HS PHILL Mupirocin 1 applic 05/28/17 23:30 05/29/17 09:50 Bactroban Ointment (For Decolonization) - NS 06/02/17 23:29 1 applic BID PHILL Administration Pantoprazole Sodium 40 mg 05/28/17 19:00 05/29/17 09:49 Protonix Iv IVPUSH 40 mg DAILY PHILL Administration ASSESSMENT/PLAN: 71 year old M with pmh of A fib, HTN, CHF, DM, CAD s/p stents presenting with acute hypoxic respiratory failure s/p PEA cardiopulmonary arrest Resp Acute Hypoxic/hypercapnic Respiratory Failure Acute Pulmonary Edema -Currently intubated and sedated in ICU -IVF NS @ 100 cc/hr -IV lasix if BP allows per cardiology CV PEA Cardiopulmonary Arrest Acute on CHF, systolic Shock, likely cardiogenic 2/2 to acute SC Atrial Fibrillation HTN -Echo reveals mild concentric LVH, severe global hypokinesis of LV, LV function severely reduced, and RV function mildly reduced -Continue levophed drip -If BP remains low, may need dobutamine to allow for diuresis -Sedation holidays to assess patient's mentation -Continue propofol ID +E coli Urine Culture -Zosyn 3.375 g q8h -Trend lactic acid -ID on board, Dr. Clark Nephro Acute Kidney Injury -Likely 2/2 to shock -IVF NS @ 100 cc/hr -Monitor cr and urine output -Avoid nephrotoxic agents GI Elevated LFTs -Likely 2/2 to shock -Continue to trend Endo Diabetes Mellitus -ISS -Levemir 10 units sq hs FEN/GI -IVF NS @ 100 cc/hr -wnl -Tube feeds PPx -Scd's -IV protonix for GI ppx Dispo: Continue ICU level monitoring, poor prognosis Visit type - Emergency Visit Emergency Visit: Yes ED Registration Date: 05/28/17 Care time: The patient presented to the Emergency Department on the above date and was hospitalized for further evaluation of their emergent condition. - New Patient This patient is new to me today: Yes Date on this admission: 05/29/17 - Critical Care Critical Care patient: Yes Total Critical Care Time (in minutes): 35 Critical Care Statement: The care of this patient involved high complexity decision making to prevent further life threatening deterioration of the patient 's condition and/or to evaluate & treat vital organ system(s) failure or risk of failure.
[2017-05-29] MEDS: DOPAMINE 400 MG/D5W - 400,000 MCG/250 ML INFUS.BAG IVPB SCH (14:29)
--- NOTE | 2017-05-29 16:11 | CONS ---
DATE OF CONSULTATION: REQUESTING PHYSICIAN: Elsy Watkins MD [employer]: Severo Vergara MD DATE OF DICTATION: 05/29/2017 This is a 71-year-old man who was apparently on his way to see his PMD with the complaints of swelling in his right leg and pain across the chest. While in the cab on the way, he became unresponsive. On arrival to the emergency room, he pulseless and chest compressions were started. He was coded for approximately 10 minutes. He was intubated. Given the report of the right lower extremity swelling, he was given TPA for presumed PE. He regained a pulse. He had a central line placed and he is currently on pressors and transferred to the ICU. I am asked to see him for possible UTI. The patient is currently on Versed, propofol and Levofed. No history is available. ALLERGIES: He has no known drug allergies. MEDICATIONS: His medications at home include: 1. Coreg. 2. Lexapro. 3. Lasix. 4. Potassium. 5. Entresto. 6. Janumet. PAST MEDICAL HISTORY: Is notable for coronary artery disease. He has a history of CHF and diabetes. He has a history of atrial fibrillation and he is status post stenting in the past. SURGICAL HISTORY: Is not known. SOCIAL HISTORY: Per the chart he lives at home. There is no history of cigarette use. REVIEW OF SYSTEMS: Is not available. PHYSICAL EXAMINATION: General: He is sedated and intubated. He has been hypothermic. Vitals: Current temperature is 95, pulse of 75, blood pressure is 96/55, respiratory rate is 18. He is saturating 100% on 60% FIO2. HEENT: He is normocephalic. The right eye has a right cornea. The left side does not. Neck: Supple. Lungs: Have diminished breath sounds at the bases. Heart: Regular rate and rhythm. Abdomen: Soft, nontender. Extremities: Without edema. He has no rash. Of note, he has diffuse anasarca. He has edema of his upper thighs bilaterally. He has edema of both his flanks. It appears to be long-term as everything appears quite indurated. White count is 10.7, hemoglobin 10, platelets are 164. His BUN is 37 and creatinine 1.6. Hemoglobin A1c is 9.2. Lactic acid is 10.2. Urinalysis has 600 white cells, 1+ leukocyte esterase. Blood cultures are pending. Urine culture is growing gram-negative . Chest x-ray on admission revealed bilateral congestion. This morning there is some improvement in the congestion. In summary, this is a 71-year-old man, status post cardiac arrest with heart failure, anasarca, urinary tract infection, poorly controlled diabetes and acute kidney injury. His creatinine of 1.6. Waiting cardiology evaluation. Would follow up his cultures, start dosing for UTI. Prior history of whether he has had UTIs or not and treatment is unknown. Currently on pressors. I would adjust his antibiotics for his elevated creatinine. Overall prognosis is guarded. SEVERO VERGARA M.D. [id number]
[2017-05-29] MEDS: PROPOFOL 1,000,000 MCG/100 ML VIAL IVPB SCH ×2 (17:39)
--- NOTE | 2017-05-29 17:57 | PN ---
Progress Note (short form) - Note Progress Note: patient seen and examined with SAL Bull earlier today. Events noted noted Documentation reviewed/ Case discussed with SAL Bull. Sedated on vent Vital Signs Temp 96.8 F L 05/29/17 17:41 Pulse 79 05/29/17 17:41 Resp 18 05/29/17 17:41 BP 100/53 05/29/17 17:41 Pulse Ox 100 05/29/17 14:00 Intake & Output 05/28/17 05/29/17 05/29/17 23:59 11:59 23:59 Intake Total 029 702 7648.6 Output Total 220 300 450 Balance 831 660 3425.6 Weight 160 lb 196 lb 3.382 oz Intake: IV 707 970 7774.6 DIPRIVAN - 1,000,000 mcg 112 60 In 100 ml @ 5 MCG/KG/MIN 2.177 mls/hr IVPB TITR PHILL Rx#:[id number] Levophed - 8,000 Mcg In 120 392 675.6 D5w - 492 ml @ 5 MCG/MIN 18.75 mls/hr IV TITR PHILL Rx#:[id number] Normal Saline - 1,000 ml 600 @ 100 mls/hr IV ASDIR PHILL Rx#:[id number] Versed - 100 mg In Normal 49 35 Saline - 100 ml @ 1 MG/ HR 1 mls/hr IVPB TITR PHILL Rx#:[id number] IVPB 500 300 Tube Feeding 210 Tube Irrigant 140 Output: Urine 220 300 450 [place]ales 220 300 450 Other: Voiding Method Indwelling Catheter Indwelling Catheter Height 5 ft 5 in 5 ft 5 in Body Mass Index (BMI) 26.6 32.6 Weight Measurement Method Built in [facility] Weight Measurement Method Est/Stated by Patient Active Medications Chlorhexidine Gluconate (Hibiclens For Decolonization -) 1 applic TP HS PHILL Last Admin: 05/29/17 03:59 Dose: 1 applic Norepinephrine Bitartrate 8, (000 mcg/ Dextrose) 500 mls @ 18.75 mls/hr IV TITR PHILL; 5 MCG/MIN PRN Reason: Protocol Last Admin: 05/29/17 16:23 Dose: Not Given Midazolam HCl 100 mg/ Sodium (Chloride) 100 mls @ 1 mls/hr IVPB TITR PHILL; 1 MG/ HR PRN Reason: Protocol Last Admin: 05/29/17 17:39 Dose: 4 mg/hr, 4 mls/hr Propofol (Diprivan -) 1,000,000 mcg in 100 mls @ 2.177 mls/hr IVPB TITR PHILL; 5 MCG/KG/MIN PRN Reason: Protocol Last Admin: 05/29/17 17:39 Dose: 18.37 mcg/kg/min, 8 mls/hr Piperacillin Sod/Tazobactam (Sod 3.375 gm/ Dextrose) 100 mls @ 200 mls/hr IVPB Q8H-IV PHILL Last Admin: 05/29/17 17:40 Dose: 200 mls/hr Sodium Chloride (Normal Saline -) 1,000 mls @ 100 mls/hr IV ASDIR PHILL Last Admin: 05/29/17 12:00 Dose: 100 mls/hr Insulin Aspart (Novolog Vial Sliding Scale -) 1 vial SQ TIDAC PHILL PRN Reason: Protocol Last Admin: 05/29/17 16:24 Dose: Not Given Insulin Detemir (Levemir Vial) 10 units SQ HS PHILL Mupirocin (Bactroban Ointment (For Decolonization) -) 1 applic NS BID PHILL Stop: 06/02/17 23:29 Last Admin: 05/29/17 09:50 Dose: 1 applic Pantoprazole Sodium (Protonix Iv) 40 mg IVPUSH DAILY PHILL Last Admin: 05/29/17 09:49 Dose: 40 mg CBC, BMP 05/29/17 06:20 05/29/17 06:20 physical exam N- intubated, not responsive to painful stimuli CVS- s1s2 lungs- anterior breath sounds, diminished abd- soft, nd LE- trace edema right TLC A/P Acute Hypoxic respiratory failure status post PEA cardiac arrest acute pulmonary edema acute on chronic systolic HF aFIB Elevated troponin lactic acidosis leucocytosis positive UA Elevated LFT NIKA continue present care Critical team on board Cardiology on case I also started her on antibiotics--for UTI --given Levaquin Discussed with ID--they will follow Condition critical Problem List - Problems (1) Cardiac arrest Code(s): I46.9 - CARDIAC ARREST, CAUSE UNSPECIFIED (2) Diabetes Code(s): E11.9 - TYPE 2 DIABETES MELLITUS WITHOUT COMPLICATIONS (3) Elevated troponin Code(s): R74.8 - ABNORMAL LEVELS OF OTHER SERUM ENZYMES (4) Lactic acidosis Code(s): E87.2 - ACIDOSIS (5) CHF (congestive heart failure) Code(s): I50.9 - HEART FAILURE, UNSPECIFIED
[2017-05-29] MEDS: INSULIN DETEMIR 100 UNITS/ML MDV SQ SCH (21:29)
[2017-05-30] MEDS ORDERED: PT OWN MED DRAWER 7, Y5N ONE (02:10)
[2017-05-30] MEDS: PIPERACILLIN/TAZOB 3.375 GM 3.375 GM in DEXTROSE 5%-WATER - 100 ML IVPB SCH ×3 (02:56→23:20)
[2017-05-30] MEDS ORDERED: NOREPINEPHRINE BITARTRATE 4 MG/4 ML ML IV ONE ×2 (03:58→15:52)
[2017-05-30 06:35] LABS: BASO % 0.2 % (0-2.0); EOS % 0.5 % (0-4.5); HEMATOCRIT 28.5 % (35.4-49); HEMOGLOBIN 9.3 GM/dL (11.7-16.9); LYMPH % 6.3 % (8-40); MCH 30.7 pg (25.7-33.7); MCHC 32.5 g/dl (32.0-35.9); MEAN CELL VOLUME 94.5 fl (80-96); MEAN PLT VOLUME 10.2 fl (7.5-11.1); MONO % 10.6 % (3.8-10.2); NEUT % 82.4 % (42.8-82.8); PLATELET COUNT 153 K/MM3 (134-434); RBC 3.01 M/mm3 (4.00-5.60); WHITE BLOOD COUNT 8.2 K/mm3 (4.0-10.0)
[2017-05-30 06:53] LABS: INR 1.35 (0.82-1.09); PROTHROMBIN TIME (PATIENT) 15.2 SEC (9.98-11.88)
[2017-05-30] MEDS: INSULIN SLIDING SCALE (NOVOLOG) 1 VIAL SQ SCH ×3 (07:00→16:35)
--- NOTE | 2017-05-30 07:10 | PN ---
Progress Note, Physician Chief Complaint: ID Intubated pressor support along with Pip Tazo day 1 Rx - Current Medication List Current Medications: Active Medications Chlorhexidine Gluconate (Hibiclens For Decolonization -) 1 applic TP HS [facility] Last Admin: 05/29/17 21:29 Dose: 1 applic Norepinephrine Bitartrate 8, (000 mcg/ Dextrose) 500 mls @ 18.75 mls/hr IV TITR PHILL; 5 MCG/MIN PRN Reason: Protocol Last Admin: 05/29/17 16:23 Dose: Not Given Midazolam HCl 100 mg/ Sodium (Chloride) 100 mls @ 1 mls/hr IVPB TITR PHILL; 1 MG/ HR PRN Reason: Protocol Last Admin: 05/29/17 19:00 Dose: 4 mg/hr, 4 mls/hr Propofol (Diprivan -) 1,000,000 mcg in 100 mls @ 2.177 mls/hr IVPB TITR PHILL; 5 MCG/KG/MIN PRN Reason: Protocol Last Admin: 05/29/17 17:39 Dose: 18.37 mcg/kg/min, 8 mls/hr Piperacillin Sod/Tazobactam (Sod 3.375 gm/ Dextrose) 100 mls @ 200 mls/hr IVPB Q8H-IV [facility] Last Admin: 05/30/17 02:56 Dose: 200 mls/hr Sodium Chloride (Normal Saline -) 1,000 mls @ 100 mls/hr IV ASDIR [facility] Last Admin: 05/29/17 12:00 Dose: 100 mls/hr Insulin Aspart (Novolog Vial Sliding Scale -) 1 vial SQ TIDAC [facility] PRN Reason: Protocol Last Admin: 05/29/17 16:24 Dose: Not Given Insulin Detemir (Levemir Vial) 10 units SQ HS [facility] Last Admin: 05/29/17 21:29 Dose: 10 units Mupirocin (Bactroban Ointment (For Decolonization) -) 1 applic NS BID [facility] Stop: 06/02/17 23:29 Last Admin: 05/29/17 21:29 Dose: 1 applic Pantoprazole Sodium (Protonix Iv) 40 mg IVPUSH DAILY [facility] Last Admin: 05/29/17 09:49 Dose: 40 mg - Objective Vital Signs: Vital Signs Temperature 98.9 F 05/30/17 02:00 Pulse Rate 85 05/30/17 06:00 Respiratory Rate 20 05/30/17 06:32 Blood Pressure 97/52 05/30/17 06:00 O2 Sat by Pulse Oximetry (%) 100 05/29/17 19:25 Cardiovascular: Yes: Regular Rate and Rhythm, S1, S2 Respiratory: Yes: Regular, CTA Bilaterally, Rhonchi Gastrointestinal: Yes: Soft. No: Tenderness, Rebound Edema: No Labs: CBC, BMP 05/30/17 05:35 INR, PTT INR 1.35 (0.82-1.09) H 05/30/17 05:35 Assessment/Plan Microbiology 05/28/17 13:40 Urine - Urine Canales Urine Culture - Preliminary Lactose Fermenting Neg Bacilli 05/28/17 13:30 Blood - Peripheral Venous Blood Culture - Preliminary NO GROWTH OBTAINED AFTER 24 HOURS, INCUBATION TO CONTINUE FOR 4 DAYS. 05/28/17 13:30 Blood - Peripheral Venous Blood Culture - Preliminary NO GROWTH OBTAINED AFTER 24 HOURS, INCUBATION TO CONTINUE FOR 4 DAYS. Laboratory Tests 05/28/17 05/29/17 05/29/17 13:40 06:20 06:20 WBC Hgb Hct Plt Count ABG pCO2 at Pt Temp Oxygen Flow Rate BUN 37 H Creatinine 1.6 H Creat Clearance w eGFR 42.58 Lactic Acid 3.2 H* Ur Leukocyte Esterase 1+ H Urine Bacteria Many 05/29/17 05/30/17 08:20 05:35 WBC 8.2 Hgb 9.3 L Hct 28.5 L Plt Count 153 ABG pCO2 at Pt Temp 49.2 H Oxygen Flow Rate 60 BUN Creatinine Creat Clearance w eGFR Lactic Acid Ur Leukocyte Esterase Urine Bacteria Assessment Cardiac arrest CAD DM Urinary tract infection with a gram negative nesha Plan Pending culture continue current antibiotic Obtain HIV testing and toxicology Amber PENN
[2017-05-30 07:44] LABS: ALBUMIN 1.6 g/dl (3.4-5.0); ANION GAP 2 (8-16); BLOOD UREA NITROGEN 40 mg/dL (7-18); CALCIUM 7.5 mg/dL (8.5-10.1); CHLORIDE 105 mmol/L (98-107); CO2 33 mmol/L (21-32); CREATININE 1.5 mg/dL (0.7-1.3); GLUCOSE,RANDOM 65 mg/dL (74-106); MAGNESIUM 1.8 mg/dL (1.8-2.4); PHOSPHOROUS 3.8 mg/dL (2.5-4.9); POTASSIUM 4.7 mmol/L (3.5-5.1); SGOT/AST 38 U/L (15-37); SGPT/ALT 47 U/L (12-78); SODIUM 140 mmol/L (136-145)
[2017-05-30 07:45] LABS: ALK PHOS 161 U/L (45-117); BILIRUBIN,TOTAL 0.5 mg/dL (0.2-1.0)
--- NOTE | 2017-05-30 08:20 | PN ---
Progress Note, Physician Chief Complaint: resp failure History of Present Illness: intubated/sedated - Current Medication List Current Medications: Active Medications Chlorhexidine Gluconate (Hibiclens For Decolonization -) 1 applic TP HS [facility] Last Admin: 05/29/17 21:29 Dose: 1 applic Norepinephrine Bitartrate 8, (000 mcg/ Dextrose) 500 mls @ 18.75 mls/hr IV TITR PHILL; 5 MCG/MIN PRN Reason: Protocol Last Admin: 05/29/17 16:23 Dose: Not Given Midazolam HCl 100 mg/ Sodium (Chloride) 100 mls @ 1 mls/hr IVPB TITR PHILL; 1 MG/ HR PRN Reason: Protocol Last Admin: 05/29/17 19:00 Dose: 4 mg/hr, 4 mls/hr Propofol (Diprivan -) 1,000,000 mcg in 100 mls @ 2.177 mls/hr IVPB TITR PHILL; 5 MCG/KG/MIN PRN Reason: Protocol Last Admin: 05/29/17 17:39 Dose: 18.37 mcg/kg/min, 8 mls/hr Piperacillin Sod/Tazobactam (Sod 3.375 gm/ Dextrose) 100 mls @ 200 mls/hr IVPB Q8H-IV [facility] Last Admin: 05/30/17 02:56 Dose: 200 mls/hr Sodium Chloride (Normal Saline -) 1,000 mls @ 100 mls/hr IV ASDIR [facility] Last Admin: 05/29/17 12:00 Dose: 100 mls/hr Insulin Aspart (Novolog Vial Sliding Scale -) 1 vial SQ TIDAC [facility] PRN Reason: Protocol Last Admin: 05/29/17 16:24 Dose: Not Given Insulin Detemir (Levemir Vial) 10 units SQ HS [facility] Last Admin: 05/29/17 21:29 Dose: 10 units Mupirocin (Bactroban Ointment (For Decolonization) -) 1 applic NS BID [facility] Stop: 06/02/17 23:29 Last Admin: 05/29/17 21:29 Dose: 1 applic Pantoprazole Sodium (Protonix Iv) 40 mg IVPUSH DAILY [facility] Last Admin: 05/29/17 09:49 Dose: 40 mg - Objective Vital Signs: Vital Signs Temperature 98.9 F 05/30/17 02:00 Pulse Rate 85 05/30/17 06:00 Respiratory Rate 20 05/30/17 06:32 Blood Pressure 97/52 05/30/17 06:00 O2 Sat by Pulse Oximetry (%) 100 05/29/17 19:25 Constitutional: Yes: Well Nourished, No Distress, Calm Cardiovascular: Yes: Regular Rate and Rhythm, S1, S2. No: JVD (very tds exam), Gallop, Murmur Respiratory: Yes: Regular, CTA Bilaterally (anteriorly). No: Accessory Muscle Use, Rales, Wheezes Extremities: No: Cool Edema: No (SCDs) Neurological: No: Alert, Oriented Psychiatric: No: Agitated Labs: CBC, BMP 05/30/17 05:35 05/30/17 05:35 INR, PTT INR 1.35 (0.82-1.09) H 05/30/17 05:35 - ....Imaging EKG: Other (tele: NSR) Assessment/Plan ecg 05/28/17: sr, nl intervals, nonspec tw changes echo 10/2013: nl lv s/f, nl rv s/f, mild mr/tr echo 10/2016: lvef 40, anteroseptal hk, g2dd, nl rv, mild lae, mild-mod mr, mild tr, mod phtn, ivc mildly dilated echo 05/2017: mild lvh, sev dec lvef, global hk, rv mildly dec fcn, mild mr, mild tr cxr (reviewed images): chf changes a/p: 71 m hx dm, hld, syst chf (ICM), cad s/p pci (cath [facility] 08/2014: [place] to [facility]; residual 30-50 dlcx, 80-90 mrca-->staged pci 11/2014 with [place] to [facility]rca) here with resp distress. Acute Hypoxic and Hypercapneic Respiratory Failure, acute on chronic syst chf, PEA arrest, shock (cardiogenic likely) with lactic acidosis: -recvd tPA in ER for ? PE--clinical picture not suggestive of this dx -currently intubated, sedated. on levo -getting ivfs, CXR showing progressive chf changes. -feels well perfused distally, MAP currently 70--will d/c fluids, consider diuresis today if bp remains stable off fluids (or if CXR/O2 reqt worsens) -try to wean levophed gtt (maintain MAP >65) -holding BB, Entresto here due to hemodynamic instability at the moment. will probably resume BB first once extubated and resp status stable NSTEMI, cad s/p pci: -trop rise and fall pattern here, no isch ecg changes--suspect Type II FL sec to acute chf, though can't exclude small Type I FL (doubt the etiology of acute chf) -defer AC given dx uncertain, and it is now 48 hrs out from the acute event-- low threshold to start heparin if ischemic s/sx ensue -resume asa, statin once hemodynamically stable and enteral access is obtained. bb as above elevated lfts: -likely from hypotension -held statin here -LFTs improving kandice: -last creat here 1.3 in 2014; was 1.5 on admit, up to 1.7, now back to 1.5-- i.e. may be close to his recent outpt baseline -suspect some component of hypoperfusion related to acute chf/shock -stop IVF, as above -monitor cr trend anemia: -? recent baseline -monitor trend hld: -resume statin when stable, lfts normalized DM: -per critical care est time in review of data, pt exam, and formulating plan to manage life- threatening illness = 37 min
[2017-05-30] MEDS ORDERED: FUROSEMIDE 40 MG/4 ML INJECTABLE VIAL IVPUSH ONE (09:30)
--- NOTE | 2017-05-30 09:30 | PN ---
Progress Note (short form) - Note Progress Note: PULMONARY/CCM Pt seen and examined in the ICU. Remains intubated, sedated on levophed gtt. Vented on volume assist control with 40% FiO2. Last Vital Signs Temp Pulse Resp BP Pulse Ox 97.9 F 83 22 106/53 100 05/30/17 06:00 05/30/17 08:00 05/30/17 08:00 05/30/17 08:00 05/29/17 19:25 Intake & Output 05/27/17 05/28/17 05/29/17 05/30/17 23:59 23:59 23:59 23:59 Intake Total 620 2873.6 2604 Output Total 220 850 800 Balance 400 2023.6 1804 Weight 72.575 kg 89 kg 92 kg Gen: intubated, sedated Heart: RRR Lung: scattered rhonchi Abd: soft, nontender Ext: + edema CBC, BMP 05/30/17 05:35 05/30/17 05:35 Hepatic Panel Total Bilirubin 0.5 mg/dL (0.2-1.0) 05/30/17 05:35 AST 38 U/L (15-37) H D 05/30/17 05:35 ALT 47 U/L (12-78) D 05/30/17 05:35 Alkaline Phosphatase 161 U/L (45-117) H D 05/30/17 05:35 Albumin 1.6 g/dl (3.4-5.0) L 05/30/17 05:35 Active Medications Chlorhexidine Gluconate (Hibiclens For Decolonization -) 1 applic TP HS [facility] Last Admin: 05/29/17 21:29 Dose: 1 applic Norepinephrine Bitartrate 8, (000 mcg/ Dextrose) 500 mls @ 18.75 mls/hr IV TITR PHILL; 5 MCG/MIN PRN Reason: Protocol Last Admin: 05/29/17 16:23 Dose: Not Given Midazolam HCl 100 mg/ Sodium (Chloride) 100 mls @ 1 mls/hr IVPB TITR PHILL; 1 MG/ HR PRN Reason: Protocol Last Admin: 05/29/17 19:00 Dose: 4 mg/hr, 4 mls/hr Propofol (Diprivan -) 1,000,000 mcg in 100 mls @ 2.177 mls/hr IVPB TITR PHILL; 5 MCG/KG/MIN PRN Reason: Protocol Last Admin: 05/29/17 17:39 Dose: 18.37 mcg/kg/min, 8 mls/hr Piperacillin Sod/Tazobactam (Sod 3.375 gm/ Dextrose) 100 mls @ 200 mls/hr IVPB Q8H-IV [facility] Last Admin: 05/30/17 02:56 Dose: 200 mls/hr Insulin Aspart (Novolog Vial Sliding Scale -) 1 vial SQ TIDAC [facility] PRN Reason: Protocol Last Admin: 05/29/17 16:24 Dose: Not Given Insulin Detemir (Levemir Vial) 10 units SQ HS [facility] Last Admin: 05/29/17 21:29 Dose: 10 units Mupirocin (Bactroban Ointment (For Decolonization) -) 1 applic NS BID [facility] Stop: 06/02/17 23:29 Last Admin: 05/29/17 21:29 Dose: 1 applic Pantoprazole Sodium (Protonix Iv) 40 mg IVPUSH DAILY [facility] Last Admin: 05/29/17 09:49 Dose: 40 mg A/P Acute Hypoxic and Hypercapneic Respiratory Failure s/p PEA Cardiopulmonary Arrest Acute Pulmonary Edema Acute on Chronic Systolic Heart Failure Shock - Likely Cardiogenic r/o Acute MD UTI Acute Kidney Injury Lactic Acidosis Elevated LFTs HTN DM - continue antibiotics - titrate levophed gtt to maintain MAP >65 - IV lasix today - will start nitro gtt if BP tolerates - trend LFTs - monitor urine output, creatinine - lighten sedation in AM to assess mental status - start spontaneous breathing trials if mental status improved - enteral feeds - DVT/GI prophylaxis - ICU monitoring - prognosis guarded critical care time spent in reviewing chart, evaluating patient and formulating plan 40 min Problem List - Problems (1) Acute respiratory failure with hypoxia Code(s): J96.01 - ACUTE RESPIRATORY FAILURE WITH HYPOXIA (2) Cardiac arrest Code(s): I46.9 - CARDIAC ARREST, CAUSE UNSPECIFIED (3) Acute pulmonary edema Code(s): J81.0 - ACUTE PULMONARY EDEMA (4) Acute on chronic systolic heart failure Code(s): I50.23 - ACUTE ON CHRONIC SYSTOLIC (CONGESTIVE) HEART FAILURE (5) Atrial fibrillation Code(s): I48.91 - UNSPECIFIED ATRIAL FIBRILLATION (6) Elevated troponin Code(s): R74.8 - ABNORMAL LEVELS OF OTHER SERUM ENZYMES (7) Hyperkalemia Code(s): E87.5 - HYPERKALEMIA (8) Hypertension Code(s): I10 - ESSENTIAL (PRIMARY) HYPERTENSION (9) Diabetes Code(s): E11.9 - TYPE 2 DIABETES MELLITUS WITHOUT COMPLICATIONS
--- NOTE | 2017-05-30 10:27 | CON.NEURO ---
Consult - Past Medical History Cardio/Vascular: Yes: AFIB, CAD, CHF, HTN Endocrine: Yes: Diabetes Mellitus - Alcohol/Substance Use Hx Alcohol Use: No - Smoking History Smoking history: Never smoked Have you smoked in the past 12 months: No - Social History History of Recent Travel: No Home Medications - Allergies Allergies/Adverse Reactions: Allergies Allergy/AdvReac Type Severity Reaction Status Date / Time No Known Allergies Allergy Verified 05/28/17 12:30 - Home Medications Home Medications: Ambulatory Orders Carvedilol 6.25 mg PO BID 05/28/17 Escitalopram Oxalate [Lexapro -] 10 mg PO DAILY 05/28/17 Furosemide [Lasix] 80 mg PO DAILY 05/28/17 Potassium Chloride 20 meq PO DAILY 05/28/17 Sacubitril/Valsartan [Entresto 24 mg-26 mg Tablet] 1 each PO DAILY 05/28/17 Sitagliptin Phos/Metformin HCl [Janumet 50-500 mg Tablet] 1 each PO DAILY Physical Exam-Neuro Vital Signs: Vital Signs Temperature 98.6 F 05/30/17 10:00 Pulse Rate 84 05/30/17 10:00 Respiratory Rate 22 05/30/17 10:00 Blood Pressure 103/55 05/30/17 10:00 O2 Sat by Pulse Oximetry (%) 100 05/29/17 19:25 Labs: CBC, BMP 05/30/17 05:35 05/30/17 05:35 INR, PTT INR 1.35 (0.82-1.09) H 05/30/17 05:35 Assessment/Plan cc Anoxic Ischemic Encephalopathy HPI 71 Year old male, Hx of A-fib,DM,HTN,CAD,CHF become unreponsive and later found to have PEA. He was resucitated in ED with three rounds of Epi and was given tpa Bolus. He has been intubated, and May 29, team try to lower sedation and he started to myoclonic jerks. PMH as above SH,FH,ROS reviewed in chart Home Medications Carvedilol 6.25 mg PO BID 05/28/17 Escitalopram Oxalate [Lexapro -] 10 mg PO DAILY 05/28/17 Furosemide [Lasix] 80 mg PO DAILY 05/28/17 Potassium Chloride 20 meq PO DAILY 05/28/17 Sacubitril/Valsartan [Entresto 24 mg-26 mg Tablet] 1 each PO DAILY 05/28/17 Sitagliptin Phos/Metformin HCl [Janumet 50-500 mg Tablet] 1 each PO DAILY Neurological Examination He is on midazolam and Propofol, Pressure support no response to verbal stimuli and to painful stimuli he began to have myoclonic jerks Right eye -enucleated, left pupil is reactive gag reflex is present, corneal reflex is positive he is having brief myoclonic jerks No CT HEAD DONE Assessment- 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 As he is on sedation, Mental status cant be examined properly, Brain stem reflex are present at this time. Presence of Myoclonic jerks is poor prognostic sign, Over all prognosis is guarded at this time. Plan- Start Keppra 1 gm iv bid - EEG - a CT head can be obtained once he stable enough to go to Radiology, to determine prognosis , will hold for now continue supportive care Thanking you so much Marcus Rivas MD
[2017-05-30] MEDS: NITROGLYCERIN 25MG/D5W 250ML 25 MG/250 ML ML IVPB SCH (11:05)
[2017-05-30] MEDS: MUPIROCIN 2% TOPICAL OINTMENT FOR DECOLONIZATION NS SCH ×2 (11:11→23:21)
[2017-05-30] MEDS: levETIRAcetam 500 MG/5 ML INJECTION VIAL IVPB SCH ×2 (11:12→23:21)
[2017-05-30] MEDS: PANTOPRAZOLE SODIUM 40 MG VIAL IVPUSH SCH (11:12)
--- NOTE | 2017-05-30 11:36 | PN ---
Progress Note (short form) - Note Progress Note: pt seen/ examined in icu. all f/u noted/ appreciated sedated on vent having myoclonic jerks with decreased sedation. Vital Signs Temp 98.6 F 05/30/17 10:00 Pulse 84 05/30/17 10:00 Resp 22 05/30/17 10:00 BP 103/55 05/30/17 10:00 Pulse Ox 100 05/29/17 19:25 Intake & Output 05/29/17 05/29/17 05/30/17 11:59 23:59 11:59 Intake Total 553 2320.6 2604 Output Total 300 550 800 Balance 253 1770.6 1804 Weight 196 lb 3.382 oz 202 lb 13.204 oz Intake: IV 553 1370.6 1684 DIPRIVAN - 1,000,000 mcg 112 60 96 In 100 ml @ 5 MCG/KG/MIN 2.177 mls/hr IVPB TITR PHILL Rx#:[id number] Levophed - 8,000 Mcg In 392 675.6 540 D5w - 492 ml @ 5 MCG/MIN 18.75 mls/hr IV TITR PHILL Rx#:[id number] Normal Saline - 1,000 ml 600 1000 @ 100 mls/hr IV ASDIR [facility] Rx#:[id number] Versed - 100 mg In Normal 49 35 48 Saline - 100 ml @ 1 MG/ HR 1 mls/hr IVPB TITR PHILL Rx#:[id number] IVPB 300 200 Tube Feeding 410 480 Tube Irrigant 240 240 Output: Urine 300 550 800 Oates 300 550 800 Other: Voiding Method Indwelling Catheter Indwelling Catheter Indwelling Catheter Height 5 ft 5 in Body Mass Index (BMI) 32.6 Weight Measurement Method [facility] Active Medications Chlorhexidine Gluconate (Hibiclens For Decolonization -) 1 applic TP HS [facility] Last Admin: 05/29/17 21:29 Dose: 1 applic Norepinephrine Bitartrate 8, (000 mcg/ Dextrose) 500 mls @ 18.75 mls/hr IV TITR PHILL; 5 MCG/MIN PRN Reason: Protocol Last Admin: 05/29/17 16:23 Dose: Not Given Midazolam HCl 100 mg/ Sodium (Chloride) 100 mls @ 1 mls/hr IVPB TITR PHILL; 1 MG/ HR PRN Reason: Protocol Last Admin: 05/29/17 19:00 Dose: 4 mg/hr, 4 mls/hr Propofol (Diprivan -) 1,000,000 mcg in 100 mls @ 2.177 mls/hr IVPB TITR PHILL; 5 MCG/KG/MIN PRN Reason: Protocol Last Admin: 05/29/17 17:39 Dose: 18.37 mcg/kg/min, 8 mls/hr Piperacillin Sod/Tazobactam (Sod 3.375 gm/ Dextrose) 100 mls @ 200 mls/hr IVPB Q8H-IV [facility] Last Admin: 05/30/17 11:12 Dose: 200 mls/hr Nitroglycerin/Dextrose (Nitroglycerin 25mg/D5w 250ml) 25 mg in 250 mls @ 3 mls/ hr IVPB TITR PHILL PRN Reason: 5 MCG/MIN Insulin Aspart (Novolog Vial Sliding Scale -) 1 vial SQ TIDAC [facility] PRN Reason: Protocol Last Admin: 05/29/17 16:24 Dose: Not Given Insulin Detemir (Levemir Vial) 10 units SQ HS [facility] Last Admin: 05/29/17 21:29 Dose: 10 units Levetiracetam (Keppra Injection -) 1,000 mg IVPB BID [facility] Last Admin: 05/30/17 11:12 Dose: 1,000 mg Mupirocin (Bactroban Ointment (For Decolonization) -) 1 applic NS BID [facility] Stop: 06/02/17 23:29 Last Admin: 05/30/17 11:11 Dose: 1 applic Pantoprazole Sodium (Protonix Iv) 40 mg IVPUSH DAILY [facility] Last Admin: 05/30/17 11:12 Dose: 40 mg CBC, BMP 05/30/17 05:35 05/30/17 05:35 Microbiology 05/28/17 13:40 Urine Culture - Final Urine - Urine Oates Escherichia Coli 05/28/17 13:30 Blood Culture - Preliminary Blood - Peripheral Venous NO GROWTH OBTAINED AFTER 24 HOURS, INCUBATION TO CONTINUE FOR 4 DAYS. 05/28/17 13:30 Blood Culture - Preliminary Blood - Peripheral Venous NO GROWTH OBTAINED AFTER 24 HOURS, INCUBATION TO CONTINUE FOR 4 DAYS. Physical Examination Constitutional: Yes: Other (intubated/sedated/) Eyes: Yes: Other-- right - enucleated-- left - reactive pupil HENT: Yes: Other-- no jvd-- orally intubated Neck: Yes: Other-- Cardiovascular: Yes: Regular Rate and Rhythm Respiratory: Yes: Diminished Gastrointestinal: Yes: Soft/ non tender Edema: LLE: 1+, RLE: 1+ Neurological: Yes: Other (sedated) oates + Assessment/Plan ICU monitoring Anoxic encephalopathy- jb IV Lasix Ventilator support Critical team on the case. Monitor blood sugar. Abx discussed with nursing staff also. will discuss with neurology. will ask for palliative care consult. will follow critical care time--examining /documenting/ coordinating care - 35 minutes. Problem List - Problems (1) Cardiac arrest Code(s): I46.9 - CARDIAC ARREST, CAUSE UNSPECIFIED (2) Diabetes Code(s): E11.9 - TYPE 2 DIABETES MELLITUS WITHOUT COMPLICATIONS (3) Elevated troponin Code(s): R74.8 - ABNORMAL LEVELS OF OTHER SERUM ENZYMES (4) Lactic acidosis Code(s): E87.2 - ACIDOSIS (5) CHF (congestive heart failure) Code(s): I50.9 - HEART FAILURE, UNSPECIFIED (6) Anoxic brain damage Code(s): G93.1 - ANOXIC BRAIN DAMAGE, NOT ELSEWHERE CLASSIFIED
[2017-05-30] MEDS: NOREPINEPHRINE BITARTRATE 8,000 MCG in DEXTROSE 5%-WATER - 492 ML IV SCH (17:00)
[2017-05-30] MEDS: CHLORHEXIDINE GLUCONATE 4% CLEANSER FOR DECOLONIZATION TP SCH (23:21)
[2017-05-30] MEDS: INSULIN DETEMIR 100 UNITS/ML MDV SQ SCH (23:21)
[2017-05-31 06:23] LABS: BASO % 0.3 % (0-2.0); EOS % 0.8 % (0-4.5); HEMATOCRIT 26.3 % (35.4-49); HEMOGLOBIN 8.5 GM/dL (11.7-16.9); LYMPH % 9.8 % (8-40); MCH 30.4 pg (25.7-33.7); MCHC 32.4 g/dl (32.0-35.9); MEAN PLT VOLUME 9.7 fl (7.5-11.1); NEUT % 79.1 % (42.8-82.8); PLATELET COUNT 145 K/MM3 (134-434); RDW 15.8 % (11.9-15.9); WHITE BLOOD COUNT 7.2 K/mm3 (4.0-10.0)
--- NOTE | 2017-05-31 06:46 | PN ---
Progress Note, Physician Chief Complaint: ID Seen by neurology myoclonic jerking movement consistent with severe anoxic brain injury Still on Zosyn - Current Medication List Current Medications: Active Medications Chlorhexidine Gluconate (Hibiclens For Decolonization -) 1 applic TP HS [facility] Last Admin: 05/30/17 23:21 Dose: 1 applic Norepinephrine Bitartrate 8, (000 mcg/ Dextrose) 500 mls @ 18.75 mls/hr IV TITR PHILL; 5 MCG/MIN PRN Reason: Protocol Last Admin: 05/29/17 16:23 Dose: Not Given Midazolam HCl 100 mg/ Sodium (Chloride) 100 mls @ 1 mls/hr IVPB TITR PHILL; 1 MG/ HR PRN Reason: Protocol Last Admin: 05/29/17 19:00 Dose: 4 mg/hr, 4 mls/hr Propofol (Diprivan -) 1,000,000 mcg in 100 mls @ 2.177 mls/hr IVPB TITR [facility]; 5 MCG/KG/MIN PRN Reason: Protocol Last Admin: 05/29/17 17:39 Dose: 18.37 mcg/kg/min, 8 mls/hr Piperacillin Sod/Tazobactam (Sod 3.375 gm/ Dextrose) 100 mls @ 200 mls/hr IVPB Q8H-IV [facility] Last Admin: 05/30/17 23:20 Dose: 200 mls/hr Nitroglycerin/Dextrose (Nitroglycerin 25mg/D5w 250ml) 25 mg in 250 mls @ 3 mls/ hr IVPB TITR PHILL PRN Reason: 5 MCG/MIN Insulin Aspart (Novolog Vial Sliding Scale -) 1 vial SQ TIDAC [facility] PRN Reason: Protocol Last Admin: 05/29/17 16:24 Dose: Not Given Insulin Detemir (Levemir Vial) 10 units SQ HS [facility] Last Admin: 05/30/17 23:21 Dose: Not Given Levetiracetam (Keppra Injection -) 1,000 mg IVPB BID [facility] Last Admin: 05/30/17 23:21 Dose: 1,000 mg Mupirocin (Bactroban Ointment (For Decolonization) -) 1 applic NS BID [facility] Stop: 06/02/17 23:29 Last Admin: 05/30/17 23:21 Dose: 1 applic Pantoprazole Sodium (Protonix Iv) 40 mg IVPUSH DAILY [facility] Last Admin: 05/30/17 11:12 Dose: 40 mg - Objective Vital Signs: Vital Signs Temperature 98.6 F 05/30/17 10:00 Pulse Rate 83 05/31/17 00:00 Respiratory Rate 14 05/31/17 05:00 Blood Pressure 123/63 05/31/17 00:00 O2 Sat by Pulse Oximetry (%) 99 05/30/17 23:00 Cardiovascular: Yes: Regular Rate and Rhythm, S1, S2 Respiratory: Yes: WNL, Regular, CTA Bilaterally, Rhonchi Gastrointestinal: Yes: Soft. No: Tenderness Edema: No Labs: INR, PTT INR 1.35 (0.82-1.09) H 05/30/17 05:35 Assessment/Plan Microbiology 05/28/17 13:40 Urine - Urine [place]ales Urine Culture - Final Escherichia Coli 05/28/17 13:30 Blood - Peripheral Venous Blood Culture - Preliminary NO GROWTH OBTAINED AFTER 48 HOURS, INCUBATION TO CONTINUE FOR 3 DAYS. 05/28/17 13:30 Blood - Peripheral Venous Blood Culture - Preliminary NO GROWTH OBTAINED AFTER 48 HOURS, INCUBATION TO CONTINUE FOR 3 DAYS. Laboratory Tests 05/30/17 05/30/17 05/30/17 05:35 05:35 10:15 WBC 8.2 Hgb 9.3 L Hct 28.5 L Plt Count 153 BUN 40 H Creatinine 1.5 H HIV 1&2 Antibody Screen Negative HIV P24 Antigen Negative 05/31/17 05:15 WBC Pending Hgb Pending Hct Pending Plt Count BUN Creatinine HIV 1&2 Antibody Screen HIV P24 Antigen Assessment Anoxic brain injury after cardiac arrest From ID standpoint E Coli urinary tract infection sensitive Plan Substitute Ceftriaxone 1 gram daily for few more days Amber PENN
[2017-05-31 06:53] LABS: ALBUMIN 1.6 g/dl (3.4-5.0); ANION GAP 7 (8-16); BILIRUBIN,TOTAL 0.5 mg/dL (0.2-1.0); BLOOD UREA NITROGEN 43 mg/dL (7-18); CALCIUM 7.5 mg/dL (8.5-10.1); CHLORIDE 103 mmol/L (98-107); CO2 31 mmol/L (21-32); CREATININE 1.6 mg/dL (0.7-1.3); GLUCOSE,RANDOM 93 mg/dL (74-106); MAGNESIUM 1.9 mg/dL (1.8-2.4); POTASSIUM 4.7 mmol/L (3.5-5.1); SGOT/AST 34 U/L (15-37); SGPT/ALT 36 U/L (12-78); SODIUM 141 mmol/L (136-145); TOT PROT 4.1 g/dl (6.4-8.2)
[2017-05-31 06:55] LABS: ALK PHOS 168 U/L (45-117)
[2017-05-31] MEDS: INSULIN SLIDING SCALE (NOVOLOG) 1 VIAL SQ SCH ×3 (07:07→16:25)
[2017-05-31 08:07] LABS: ALLENS TEST POSITIVE; ARTERIAL BLD GAS O2 SATURATION 97.7 % (90-98.9); ARTERIAL BLOOD GAS BASE EXCESS 5.5 meq/l (-2-2); ARTERIAL BLOOD GAS PCO2 51.6 mmHg (35-45); ARTERIAL BLOOD GAS pH 7.39 (7.35-7.45)
--- NOTE | 2017-05-31 08:42 | PN ---
Progress Note, Physician Chief Complaint: acute chf History of Present Illness: intubated/sedated - Current Medication List Current Medications: Active Medications Chlorhexidine Gluconate (Hibiclens For Decolonization -) 1 applic TP HS [facility] Last Admin: 05/30/17 23:21 Dose: 1 applic Norepinephrine Bitartrate 8, (000 mcg/ Dextrose) 500 mls @ 18.75 mls/hr IV TITR PHILL; 5 MCG/MIN PRN Reason: Protocol Last Admin: 05/29/17 16:23 Dose: Not Given Midazolam HCl 100 mg/ Sodium (Chloride) 100 mls @ 1 mls/hr IVPB TITR PHILL; 1 MG/ HR PRN Reason: Protocol Last Admin: 05/29/17 19:00 Dose: 4 mg/hr, 4 mls/hr Propofol (Diprivan -) 1,000,000 mcg in 100 mls @ 2.177 mls/hr IVPB TITR PHILL; 5 MCG/KG/MIN PRN Reason: Protocol Last Admin: 05/29/17 17:39 Dose: 18.37 mcg/kg/min, 8 mls/hr Nitroglycerin/Dextrose (Nitroglycerin 25mg/D5w 250ml) 25 mg in 250 mls @ 3 mls/ hr IVPB TITR PHILL PRN Reason: 5 MCG/MIN CEFTRIAXONE 1 G/50 ML PREMIX (Ceftriaxone 1 Gm-D5w Bag) 50 mls @ 100 mls/hr IVPB DAILY [facility] Insulin Aspart (Novolog Vial Sliding Scale -) 1 vial SQ TIDAC [facility] PRN Reason: Protocol Last Admin: 05/31/17 07:07 Dose: Not Given Insulin Detemir (Levemir Vial) 10 units SQ [facility] Last Admin: 05/30/17 23:21 Dose: Not Given Levetiracetam (Keppra Injection -) 1,000 mg IVPB BID [facility] Last Admin: 05/30/17 23:21 Dose: 1,000 mg Mupirocin (Bactroban Ointment (For Decolonization) -) 1 applic NS BID [facility] Stop: 06/02/17 23:29 Last Admin: 05/30/17 23:21 Dose: 1 applic Pantoprazole Sodium (Protonix Iv) 40 mg IVPUSH DAILY [facility] Last Admin: 05/30/17 11:12 Dose: 40 mg - Objective Vital Signs: Vital Signs Temperature 97.8 F 05/31/17 06:00 Pulse Rate 81 05/31/17 06:00 Respiratory Rate 18 05/31/17 07:38 Blood Pressure 120/60 05/31/17 06:00 O2 Sat by Pulse Oximetry (%) 99 05/30/17 23:00 Constitutional: Yes: Well Nourished, No Distress, Calm Cardiovascular: Yes: Regular Rate and Rhythm, S1, S2. No: JVD (tds exam), Gallop, Murmur Respiratory: Yes: Regular, CTA Bilaterally (anteriorly). No: Accessory Muscle Use Extremities: No: Cold Edema: Yes (UE's 1+) Neurological: No: Alert, Oriented, Seizure Psychiatric: No: Agitated Labs: CBC, BMP 05/31/17 05:15 05/31/17 05:15 INR, PTT INR 1.35 (0.82-1.09) H 05/30/17 05:35 - ....Imaging EKG: Other (tele: NSR) Assessment/Plan ecg 05/28/17: sr, nl intervals, nonspec tw changes echo 10/2013: nl lv s/f, nl rv s/f, mild mr/tr echo 10/2016: lvef 40, anteroseptal hk, g2dd, nl rv, mild lae, mild-mod mr, mild tr, mod phtn, ivc mildly dilated echo 05/2017: mild lvh, sev dec lvef, global hk, rv mildly dec fcn, mild mr, mild tr cxr (reviewed images): chf changes a/p: 71 m hx dm, hld, syst chf (ICM), cad s/p pci (cath [facility] 08/2014: [place] to mlad; residual 30-50 dlcx, 80-90 mrca-->staged pci 11/2014 with [place] to mrca) here with resp distress. Acute Hypoxic and Hypercapneic Respiratory Failure, acute on chronic syst chf, PEA arrest, shock (cardiogenic likely) with lactic acidosis: -recvd tPA in ER for ? PE--clinical picture not suggestive of this dx -05/30: CXR showing progressive chf changes, d/c'd IVF, lasix 40 iv x1 given. good UOP (2L) but I > O yesterday -05/31: CXR worse, bun/creat today slightly higher -incr lasix today 40 iv BID -d/w'd crit care: will cont low dose levophed gtt for today -holding BB, Entresto here due to hemodynamic instability at the moment. will probably resume BB first once better diuresed -low albumin, 3rd spacing UEs--defer albumin with lasix since he is mounting brisk diuresis response. reconsider tomorrow if cxr and edema not improved NSTEMI, cad s/p pci: -trop rise and fall pattern here, no isch ecg changes--suspect Type II NJ sec to acute chf, though can't exclude small Type I NJ (doubt the etiology of acute chf) -defer AC given dx uncertain, and it is now 48 hrs out from the acute event-- low threshold to start heparin if ischemic s/sx ensue -has OGT: start asa, monitor H/H trend, check stool occult blood -start atorva 40 -resume b-genaro once better diuresed elevated lfts: -likely from hypotension -LFTs resolved kandice: -last creat here 1.3 in 2014; was 1.5 on admit, up to 1.7, now back to 1.5-- i.e. may be close to his recent outpt baseline -suspect some component of hypoperfusion related to acute chf/shock -stop IVF, as above -monitor cr trend anemia: -? recent baseline -trending down--as above hld: -resume statin when stable, lfts normalized DM: -per critical care est time in review of data, pt exam, and formulating plan to manage life- threatening illness = 35 min
--- NOTE | 2017-05-31 10:19 | PN ---
Progress Note (short form) - Note Progress Note: PULMONARY/CCM Pt seen and examined in the ICU. Remains intubated, sedated on levophed and nitro gtts. Vented on volume assist control with 40% FiO2. Good urine output. Last Vital Signs Temp Pulse Resp BP Pulse Ox 97.8 F 80 18 120/64 99 05/31/17 06:00 05/31/17 08:00 05/31/17 08:00 05/31/17 08:00 05/30/17 23:00 Intake & Output 05/28/17 05/29/17 05/30/17 05/31/17 23:59 23:59 23:59 23:59 Intake Total 620 2873.6 2844 1222 Output Total 600 193 6294 900 Balance 400 2023.6 844 322 Weight 72.575 kg 89 kg 92 kg 93.2 kg Gen: intubated, sedated with occasional jerks Heart: RRR Lung: scattered rhonchi Abd: soft, nontender Ext: + edema CBC, BMP 05/31/17 05:15 05/31/17 05:15 Active Medications Chlorhexidine Gluconate (Hibiclens For Decolonization -) 1 applic TP HS [facility] Last Admin: 05/30/17 23:21 Dose: 1 applic Norepinephrine Bitartrate 8, (000 mcg/ Dextrose) 500 mls @ 18.75 mls/hr IV TITR PHILL; 5 MCG/MIN PRN Reason: Protocol Last Admin: 05/29/17 16:23 Dose: Not Given Midazolam HCl 100 mg/ Sodium (Chloride) 100 mls @ 1 mls/hr IVPB TITR PHILL; 1 MG/ HR PRN Reason: Protocol Last Admin: 05/29/17 19:00 Dose: 4 mg/hr, 4 mls/hr Propofol (Diprivan -) 1,000,000 mcg in 100 mls @ 2.177 mls/hr IVPB TITR PHILL; 5 MCG/KG/MIN PRN Reason: Protocol Last Admin: 05/29/17 17:39 Dose: 18.37 mcg/kg/min, 8 mls/hr Nitroglycerin/Dextrose (Nitroglycerin 25mg/D5w 250ml) 25 mg in 250 mls @ 3 mls/ hr IVPB TITR PHILL PRN Reason: 5 MCG/MIN CEFTRIAXONE 1 G/50 ML PREMIX (Ceftriaxone 1 Gm-D5w Bag) 50 mls @ 100 mls/hr IVPB DAILY [facility] Insulin Aspart (Novolog Vial Sliding Scale -) 1 vial SQ TIDAC [facility] PRN Reason: Protocol Last Admin: 05/31/17 07:07 Dose: Not Given Insulin Detemir (Levemir Vial) 10 units SQ HS [facility] Last Admin: 05/30/17 23:21 Dose: Not Given Levetiracetam (Keppra Injection -) 1,000 mg IVPB BID [facility] Last Admin: 05/30/17 23:21 Dose: 1,000 mg Mupirocin (Bactroban Ointment (For Decolonization) -) 1 applic NS BID [facility] Stop: 06/02/17 23:29 Last Admin: 05/30/17 23:21 Dose: 1 applic Pantoprazole Sodium (Protonix Iv) 40 mg IVPUSH DAILY [facility] Last Admin: 05/30/17 11:12 Dose: 40 mg A/P Acute Hypoxic and Hypercapneic Respiratory Failure s/p PEA Cardiopulmonary Arrest Acute Pulmonary Edema Acute on Chronic Systolic Heart Failure Shock - Likely Cardiogenic Acute [place] UTI Acute Kidney Injury Lactic Acidosis Elevated LFTs HTN DM - continue antibiotics - titrate levophed gtt to maintain MAP >65 - IV lasix today - continue nitro gtt if BP tolerates - trend LFTs - monitor urine output, creatinine - lighten sedation in AM to assess mental status - start spontaneous breathing trials if mental status improved - enteral feeds - DVT/GI prophylaxis - ICU monitoring - prognosis guarded critical care time spent in reviewing chart, evaluating patient and formulating plan 40 min Problem List - Problems (1) Acute respiratory failure with hypoxia Code(s): J96.01 - ACUTE RESPIRATORY FAILURE WITH HYPOXIA (2) Cardiac arrest Code(s): I46.9 - CARDIAC ARREST, CAUSE UNSPECIFIED (3) Acute pulmonary edema Code(s): J81.0 - ACUTE PULMONARY EDEMA (4) Acute on chronic systolic heart failure Code(s): I50.23 - ACUTE ON CHRONIC SYSTOLIC (CONGESTIVE) HEART FAILURE (5) Atrial fibrillation Code(s): I48.91 - UNSPECIFIED ATRIAL FIBRILLATION (6) Elevated troponin Code(s): R74.8 - ABNORMAL LEVELS OF OTHER SERUM ENZYMES (7) Hyperkalemia Code(s): E87.5 - HYPERKALEMIA (8) Hypertension Code(s): I10 - ESSENTIAL (PRIMARY) HYPERTENSION (9) Diabetes Code(s): E11.9 - TYPE 2 DIABETES MELLITUS WITHOUT COMPLICATIONS
[2017-05-31] MEDS ORDERED: FUROSEMIDE 40 MG/4 ML INJECTABLE VIAL IVPUSH ONE ×2 (11:00→16:00)
[2017-05-31] MEDS ORDERED: PT OWN MED DRAWER 7, Y5N ONE (11:57)
[2017-05-31] MEDS: levETIRAcetam 500 MG/5 ML INJECTION VIAL IVPB SCH ×2 (12:07→21:15)
[2017-05-31] MEDS: CEFTRIAXONE 1 G/50 ML PREMIX 50 ML IVPB SCH (12:07)
[2017-05-31] MEDS: NITROGLYCERIN 25MG/D5W 250ML 25 MG/250 ML ML IVPB SCH (12:08)
[2017-05-31] MEDS: PANTOPRAZOLE SODIUM 40 MG VIAL IVPUSH SCH (12:08)
[2017-05-31] MEDS: ASPIRIN 81 MG CHEWABLE TABLETS NGT SCH (12:08)
[2017-05-31] MEDS: MUPIROCIN 2% TOPICAL OINTMENT FOR DECOLONIZATION NS SCH ×2 (12:08→21:16)
[2017-05-31] MEDS ORDERED: HEMOQUE TEST 1 EACH EACH ONE (12:43)
--- NOTE | 2017-05-31 14:27 | PN ---
Progress Note (short form) - Note Progress Note: pt seen/ examined in icu remains vent dependent/ sedated on pressors passing urine not assisting vent all f/u noted / appreciated lasix dose increased Vital Signs Temp 97.8 F 05/31/17 06:00 Pulse 80 05/31/17 08:00 Resp 16 05/31/17 09:15 BP 120/64 05/31/17 08:00 Pulse Ox 99 05/30/17 23:00 Intake & Output 05/30/17 05/31/17 05/31/17 23:59 11:59 23:59 Intake Total 240 1222 Output Total 900 1000 Balance 240 322 -1000 Weight 205 lb 7.533 oz Intake: IV 702 DIPRIVAN - 1,000,000 mcg 96 In 100 ml @ 5 MCG/KG/MIN 2.177 mls/hr IVPB TITR PHILL Rx#:[id number] Levophed - 8,000 Mcg In 450 D5w - 492 ml @ 5 MCG/MIN 18.75 mls/hr IV TITR PHILL Rx#:[id number] NITROGLYCERIN 25MG/D5W 36 250ML 25 mg In 250 ml @ 5 MCG/MIN 3 mls/hr IVPB TITR PHILL Rx#:[id number] Normal Saline - 1,000 ml 60 @ 100 mls/hr IV ASDIR [facility] Rx#:[id number] Versed - 100 mg In Normal 60 Saline - 100 ml @ 1 MG/ HR 1 mls/hr IVPB TITR PHILL Rx#:[id number] IVPB 100 Tube Feeding 160 280 Tube Irrigant 80 140 Output: Urine 900 1000 Oates 900 1000 Other: Voiding Method Indwelling Catheter Weight Measurement Method Built in [facility] Active Medications Aspirin (Asa -) 81 mg NGT DAILY [facility] Last Admin: 05/31/17 12:08 Dose: 81 mg Atorvastatin Calcium (Lipitor -) 40 mg NGT HS [facility] Chlorhexidine Gluconate (Hibiclens For Decolonization -) 1 applic TP [facility] Last Admin: 05/30/17 23:21 Dose: 1 applic Furosemide (Lasix Injection -) 40 mg IVPUSH ONCE ONE Stop: 05/31/17 16:01 Norepinephrine Bitartrate 8, (000 mcg/ Dextrose) 500 mls @ 18.75 mls/hr IV TITR PHILL; 5 MCG/MIN PRN Reason: Protocol Last Admin: 05/30/17 17:00 Dose: 15 mcg/min, 56.25 mls/hr Midazolam HCl 100 mg/ Sodium (Chloride) 100 mls @ 1 mls/hr IVPB TITR PHILL; 1 MG/ HR PRN Reason: Protocol Last Admin: 05/29/17 19:00 Dose: 4 mg/hr, 4 mls/hr Propofol (Diprivan -) 1,000,000 mcg in 100 mls @ 2.177 mls/hr IVPB TITR PHILL; 5 MCG/KG/MIN PRN Reason: Protocol Last Admin: 05/29/17 17:39 Dose: 18.37 mcg/kg/min, 8 mls/hr Nitroglycerin/Dextrose (Nitroglycerin 25mg/D5w 250ml) 25 mg in 250 mls @ 3 mls/ hr IVPB TITR PHILL PRN Reason: 5 MCG/MIN Last Admin: 05/31/17 12:08 Dose: Not Given CEFTRIAXONE 1 G/50 ML PREMIX (Ceftriaxone 1 Gm-D5w Bag) 50 mls @ 100 mls/hr IVPB DAILY [facility] Last Admin: 05/31/17 12:07 Dose: 100 mls/hr Insulin Aspart (Novolog Vial Sliding Scale -) 1 vial SQ TIDAC [facility] PRN Reason: Protocol Last Admin: 05/31/17 07:07 Dose: Not Given Insulin Detemir (Levemir Vial) 10 units SQ HS [facility] Last Admin: 05/30/17 23:21 Dose: Not Given Levetiracetam (Keppra Injection -) 1,000 mg IVPB BID [facility] Last Admin: 05/31/17 12:07 Dose: 1,000 mg Mupirocin (Bactroban Ointment (For Decolonization) -) 1 applic NS BID [facility] Stop: 06/02/17 23:29 Last Admin: 05/31/17 12:08 Dose: 1 applic Pantoprazole Sodium (Protonix Iv) 40 mg IVPUSH DAILY [facility] Last Admin: 05/31/17 12:08 Dose: 40 mg CBC,CMP WBC 7.2 K/mm3 (4.0-10.0) 05/31/17 05:15 RBC 2.80 M/mm3 (4.00-5.60) L 05/31/17 05:15 Hgb 8.5 GM/dL (11.7-16.9) L 05/31/17 05:15 Hct 26.3 % (35.4-49) L 05/31/17 05:15 MCV 94.0 fl (80-96) 05/31/17 05:15 MCH 30.4 pg (25.7-33.7) 05/31/17 05:15 MCHC 32.4 g/dl (32.0-35.9) 05/31/17 05:15 RDW 15.8 % (11.9-15.9) 05/31/17 05:15 Plt Count 145 K/MM3 (134-434) 05/31/17 05:15 MPV 9.7 fl (7.5-11.1) 05/31/17 05:15 Absolute Neuts (auto) 9.3 # (42.8-82.8) L D 05/29/17 06:20 Absolute Lymphs (auto) 0.3 (8-40) L 05/29/17 06:20 Absolute Monos (auto) 1.1 # (3.8-10.2) L 05/29/17 06:20 Absolute Eos (auto) 0.0 # (0-4.5) 05/29/17 06:20 Absolute Basos (auto) 0.0 # (0.1-1) L 05/29/17 06:20 Neutrophils % 79.1 % (42.8-82.8) 05/31/17 05:15 Lymphocytes % 9.8 % (8-40) D 05/31/17 05:15 Monocytes % 10.0 % (3.8-10.2) 05/31/17 05:15 Eosinophils % 0.8 % (0-4.5) 05/31/17 05:15 Basophils % 0.3 % (0-2.0) 05/31/17 05:15 Sodium 141 mmol/L (136-145) 05/31/17 05:15 Potassium 4.7 mmol/L (3.5-5.1) 05/31/17 05:15 Chloride 103 mmol/L (98-107) 05/31/17 05:15 Carbon Dioxide 31 mmol/L (21-32) 05/31/17 05:15 Anion Gap 7 (8-16) L 05/31/17 05:15 BUN 43 mg/dL (7-18) H 05/31/17 05:15 Creatinine 1.6 mg/dL (0.7-1.3) H 05/31/17 05:15 Creat Clearance w eGFR 42.58 (>60) 05/31/17 05:15 POC Glucometer 196.02742 UNITS (80-120) 05/31/17 13:12 Random Glucose 93 mg/dL (74-106) D 05/31/17 05:15 Hemoglobin A1c % 9.2 % (4.8-6.0) H D 05/29/17 06:20 Lactic Acid 2.0 mmol/L (0.4-2.0) 05/29/17 14:30 Calcium 7.5 mg/dL (8.5-10.1) L 05/31/17 05:15 Phosphorus 5.0 mg/dL (2.5-4.9) H D 05/31/17 05:15 Magnesium 1.9 mg/dL (1.8-2.4) 05/31/17 05:15 Total Bilirubin 0.5 mg/dL (0.2-1.0) 05/31/17 05:15 AST 34 U/L (15-37) 05/31/17 05:15 ALT 36 U/L (12-78) D 05/31/17 05:15 Alkaline Phosphatase 168 U/L (45-117) H 05/31/17 05:15 Creatine Kinase 62 IU/L (39-308) 05/31/17 05:15 Creatine Kinase Index 6.1 % (0.0-5.0) H* 05/29/17 06:20 CK-MB (CK-2) 14.158 ng/mL (0.5-3.6) H 05/29/17 06:20 Troponin I 0.08 ng/ml (0.00-0.05) H D 05/31/17 05:15 Total Protein 4.1 g/dl (6.4-8.2) L 05/31/17 05:15 Albumin 1.6 g/dl (3.4-5.0) L 05/31/17 05:15 Microbiology 05/28/17 13:30 Blood Culture - Preliminary Blood - Peripheral Venous NO GROWTH OBTAINED AFTER 72 HOURS, INCUBATION TO CONTINUE FOR 2 DAYS. 05/28/17 13:30 Blood Culture - Preliminary Blood - Peripheral Venous NO GROWTH OBTAINED AFTER 72 HOURS, INCUBATION TO CONTINUE FOR 2 DAYS. 05/28/17 13:40 Urine Culture - Final Urine - Urine Oates Escherichia Coli ABG Results ABG pH 7.39 (7.35-7.45) 05/31/17 07:18 ABG pCO2 at Pt Temp 51.6 mmHg (35-45) H 05/31/17 07:18 ABG pO2 at Pt Temp 101.0 mmHg (70-100) H D 05/31/17 07:18 ABG HCO3 30.7 meq/L (22-26) H 05/31/17 07:18 ABG O2 Sat (Measured) 97.7 % (90-98.9) 05/31/17 07:18 ABG O2 Content 11.6 % vol (15-22) L 05/31/17 07:18 ABG Base Excess 5.5 meq/l (-2-2) H 05/31/17 07:18 cxr- Increased congestion Physical Examination Constitutional: Yes: Other (intubated/sedated/) Eyes: Yes: Other-- right - enucleated-- left - reactive pupil. HENT: Yes: Other-- no jvd-- orally intubated Neck: Yes: Other-- Cardiovascular: Yes: Regular Rate and Rhythm Respiratory: Yes: Diminished Gastrointestinal: Yes: Soft/ non tender Edema: LLE: 1+, RLE: 1+ Neurological: Yes: Other (sedated) oates + Assessment/Plan ICU monitoring Anoxic encephalopathy- likley IV Lasix-- increased Ventilator support Critical team on the case. Monitor blood sugar. Abx discussed with nursing staff also. palliative care team to evaluate condition remains critical critical care time--examining /documenting/ coordinating care - 20 minutes. will follow Problem List - Problems (1) Cardiac arrest Code(s): I46.9 - CARDIAC ARREST, CAUSE UNSPECIFIED (2) Diabetes Code(s): E11.9 - TYPE 2 DIABETES MELLITUS WITHOUT COMPLICATIONS (3) Elevated troponin Code(s): R74.8 - ABNORMAL LEVELS OF OTHER SERUM ENZYMES (4) Lactic acidosis Code(s): E87.2 - ACIDOSIS (5) CHF (congestive heart failure) Code(s): I50.9 - HEART FAILURE, UNSPECIFIED (6) Anoxic brain damage Code(s): G93.1 - ANOXIC BRAIN DAMAGE, NOT ELSEWHERE CLASSIFIED
--- NOTE | 2017-05-31 15:39 | PN ---
Progress Note (short form) - Note Progress Note: 71 Year old male, Hx of A-fib,DM,HTN,CAD,CHF become unreponsive and later found to have PEA. He was resucitated in ED with three rounds of Epi and was given tpa Bolus. He has been intubated, and May 29, team try to lower sedation and he started to myoclonic jerks. He is still on sedation. 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 As he is on sedation, would defer Exam once he is off sedation. Brain stem reflex are present at this time. Presence of Myoclonic jerks is poor prognostic sign, Over all prognosis is guarded at this time. Plan- continue keppra for onw - EEG Pending - CT may help to determine prognosis, consider ct head once stabe. Thanking you so much Marcus Rivas MD
[2017-05-31] MEDS ORDERED: NOREPINEPHRINE BITARTRATE 4 MG/4 ML ML IV ONE ×2 (18:29→18:31)
[2017-05-31] MEDS: MIDAZOLAM 100 MG in SODIUM CHLORIDE 100 ML IVPB SCH (19:30)
[2017-05-31] MEDS: ATORVASTATIN CA 40 MG TABLET (FP) NGT SCH (21:15)
[2017-05-31] MEDS: PROPOFOL 1,000,000 MCG/100 ML VIAL IVPB SCH (21:15)
[2017-05-31] MEDS: CHLORHEXIDINE GLUCONATE 4% CLEANSER FOR DECOLONIZATION TP SCH (21:16)
[2017-05-31] MEDS ORDERED: INSULIN DETEMIR 100 UNITS/ML MDV SQ ONE (21:37)
[2017-05-31] MEDS: INSULIN DETEMIR 100 UNITS/ML MDV SQ SCH (21:40)
[2017-06-01] MEDS: MIDAZOLAM 100 MG in SODIUM CHLORIDE 100 ML IVPB SCH (04:19)
[2017-06-01 05:51] LABS: BASO % 0.5 % (0-2.0); EOS % 1.1 % (0-4.5); HEMATOCRIT 23.9 % (35.4-49); HEMOGLOBIN 7.7 GM/dL (11.7-16.9); LYMPH % 10.7 % (8-40); MCH 30.5 pg (25.7-33.7); MCHC 32.2 g/dl (32.0-35.9); MEAN CELL VOLUME 94.6 fl (80-96); MEAN PLT VOLUME 10.2 fl (7.5-11.1); MONO % 12.1 % (3.8-10.2); NEUT % 75.6 % (42.8-82.8); PLATELET COUNT 143 K/MM3 (134-434); RBC 2.53 M/mm3 (4.00-5.60); RDW 15.8 % (11.9-15.9); WHITE BLOOD COUNT 4.9 K/mm3 (4.0-10.0)
[2017-06-01 06:19] LABS: ALBUMIN 1.5 g/dl (3.4-5.0); ANION GAP 5 (8-16); BLOOD UREA NITROGEN 48 mg/dL (7-18); CALCIUM 7.6 mg/dL (8.5-10.1); CHLORIDE 100 mmol/L (98-107); CO2 34 mmol/L (21-32); GLUCOSE,RANDOM 206 mg/dL (74-106); POTASSIUM 4.7 mmol/L (3.5-5.1); SODIUM 139 mmol/L (136-145)
[2017-06-01 06:22] LABS: ALK PHOS 187 U/L (45-117); BILIRUBIN,TOTAL 0.4 mg/dL (0.2-1.0); CREATININE 1.7 mg/dL (0.7-1.3); PHOSPHOROUS 4.9 mg/dL (2.5-4.9); SGOT/AST 24 U/L (15-37); SGPT/ALT 29 U/L (12-78); TOT PROT 4.1 g/dl (6.4-8.2)
[2017-06-01] MEDS: PROPOFOL 1,000,000 MCG/100 ML VIAL IVPB SCH (06:39)
[2017-06-01] MEDS: INSULIN SLIDING SCALE (NOVOLOG) 1 VIAL SQ SCH ×3 (06:40→17:38)
[2017-06-01 08:07] LABS: ARTERIAL BLD GAS O2 SATURATION 99.6 % (90-98.9); ARTERIAL BLOOD GAS BASE EXCESS 7.6 meq/l (-2-2); ARTERIAL BLOOD GAS PCO2 51.7 mmHg (35-45); ARTERIAL BLOOD GAS pH 7.42 (7.35-7.45)
[2017-06-01 08:20] LABS: ALLENS TEST POSITIVE
[2017-06-01] MEDS: PANTOPRAZOLE SODIUM 40 MG VIAL IVPUSH SCH (09:08)
[2017-06-01] MEDS: levETIRAcetam 500 MG/5 ML INJECTION VIAL IVPB SCH ×2 (09:08→21:06)
[2017-06-01] MEDS: CEFTRIAXONE 1 G/50 ML PREMIX 50 ML IVPB SCH (09:09)
[2017-06-01] MEDS: ASPIRIN 81 MG CHEWABLE TABLETS NGT SCH (09:09)
--- NOTE | 2017-06-01 09:43 | PN ---
Progress Note (short form) - Note Progress Note: PULMONARY/CCM Pt seen and examined in the ICU. Remains intubated, sedated on levophed and nitro gtts. Still with myoclonic jerk activity. Vented on volume assist control with 40% FiO2. Good urine output with lasix yesterday. Last Vital Signs Temp Pulse Resp BP Pulse Ox 98.4 F 78 14 111/56 100 06/01/17 06:00 06/01/17 06:00 06/01/17 08:45 06/01/17 06:00 05/31/17 20:32 Intake & Output 05/29/17 05/30/17 05/31/17 06/01/17 23:59 23:59 23:59 23:59 Intake Total 2873.6 2844 2064 370 Output Total 850 2000 4800 Balance 2023.6 844 -2736 370 Weight 89 kg 92 kg 93.2 kg 90.764 kg Gen: intubated, sedated with occasional jerks Heart: RRR Lung: scattered rhonchi Abd: soft, nontender Ext: + edema CBC, BMP 06/01/17 05:20 06/01/17 05:20 Active Medications Aspirin (Asa -) 81 mg NGT DAILY [facility] Last Admin: 06/01/17 09:09 Dose: 81 mg Atorvastatin Calcium (Lipitor -) 40 mg NGT HS [facility] Last Admin: 05/31/17 21:15 Dose: 40 mg Chlorhexidine Gluconate (Hibiclens For Decolonization -) 1 applic TP HS [facility] Last Admin: 05/31/17 21:16 Dose: 1 applic Norepinephrine Bitartrate 8, (000 mcg/ Dextrose) 500 mls @ 18.75 mls/hr IV TITR PHILL; 5 MCG/MIN PRN Reason: Protocol Last Titration: 06/01/17 06:40 Dose: 2 mcg/min, 7.5 mls/hr Midazolam HCl 100 mg/ Sodium (Chloride) 100 mls @ 1 mls/hr IVPB TITR PHILL; 1 MG/ HR PRN Reason: Protocol Last Admin: 06/01/17 04:19 Dose: Not Given Propofol (Diprivan -) 1,000,000 mcg in 100 mls @ 2.177 mls/hr IVPB TITR PHILL; 5 MCG/KG/MIN PRN Reason: Protocol Last Titration: 06/01/17 08:30 Dose: 15 mcg/kg/min, 6.532 mls/hr Nitroglycerin/Dextrose (Nitroglycerin 25mg/D5w 250ml) 25 mg in 250 mls @ 3 mls/ hr IVPB TITR PHILL PRN Reason: 5 MCG/MIN Last Admin: 05/31/17 12:08 Dose: Not Given CEFTRIAXONE 1 G/50 ML PREMIX (Ceftriaxone 1 Gm-D5w Bag) 50 mls @ 100 mls/hr IVPB DAILY [facility] Last Admin: 06/01/17 09:09 Dose: 100 mls/hr Insulin Aspart (Novolog Vial Sliding Scale -) 1 vial SQ TIDAC [facility] PRN Reason: Protocol Last Admin: 06/01/17 06:40 Dose: 3 units Insulin Detemir (Levemir Vial) 10 units SQ HS [facility] Last Admin: 05/31/17 21:40 Dose: 10 units Levetiracetam (Keppra Injection -) 1,000 mg IVPB BID [facility] Last Admin: 06/01/17 09:08 Dose: 1,000 mg Mupirocin (Bactroban Ointment (For Decolonization) -) 1 applic NS BID [facility] Stop: 06/02/17 23:29 Last Admin: 05/31/17 21:16 Dose: 1 applic Pantoprazole Sodium (Protonix Iv) 40 mg IVPUSH DAILY [facility] Last Admin: 06/01/17 09:08 Dose: 40 mg A/P Acute Hypoxic and Hypercapneic Respiratory Failure s/p PEA Cardiopulmonary Arrest Acute Pulmonary Edema Acute on Chronic Systolic Heart Failure Shock - Likely Cardiogenic Acute [place] UTI Acute Kidney Injury Lactic Acidosis Elevated LFTs HTN DM - continue antibiotics - titrate levophed gtt to maintain MAP >65 - transfuse PRBC - continue IV lasix - continue nitro gtt if BP tolerates - trend LFTs - monitor urine output, creatinine - lighten sedation in AM to assess mental status - start spontaneous breathing trials if mental status improved - enteral feeds - DVT/GI prophylaxis - ICU monitoring - poor overall prognosis, discuss with family goals of care, advance directives critical care time spent in reviewing chart, evaluating patient and formulating plan 40 min Problem List - Problems (1) Acute respiratory failure with hypoxia Code(s): J96.01 - ACUTE RESPIRATORY FAILURE WITH HYPOXIA (2) Cardiac arrest Code(s): I46.9 - CARDIAC ARREST, CAUSE UNSPECIFIED (3) Acute pulmonary edema Code(s): J81.0 - ACUTE PULMONARY EDEMA (4) Acute on chronic systolic heart failure Code(s): I50.23 - ACUTE ON CHRONIC SYSTOLIC (CONGESTIVE) HEART FAILURE (5) Atrial fibrillation Code(s): I48.91 - UNSPECIFIED ATRIAL FIBRILLATION (6) Elevated troponin Code(s): R74.8 - ABNORMAL LEVELS OF OTHER SERUM ENZYMES (7) Hyperkalemia Code(s): E87.5 - HYPERKALEMIA (8) Hypertension Code(s): I10 - ESSENTIAL (PRIMARY) HYPERTENSION (9) Diabetes Code(s): E11.9 - TYPE 2 DIABETES MELLITUS WITHOUT COMPLICATIONS
[2017-06-01] MEDS ORDERED: FUROSEMIDE 40 MG/4 ML INJECTABLE VIAL IVPUSH ONE ×2 (10:00→16:00)
--- NOTE | 2017-06-01 11:21 | PN ---
Progress Note (short form) - Note Progress Note: pt seen/ examined in icu remains vent dependent/ sedated on pressors not assisting vent all f/u noted / appreciated. Vital Signs Temp 98.4 F 06/01/17 06:00 Pulse 76 06/01/17 09:25 Resp 16 06/01/17 09:20 BP 124/54 06/01/17 08:00 Pulse Ox 99 06/01/17 09:25 Intake & Output 05/31/17 05/31/17 06/01/17 11:59 23:59 11:59 Intake Total 1222 842 370 Output Total 900 3900 Balance 322 -3058 370 Weight 205 lb 7.533 oz 200 lb 1.6 oz Intake: IV 702 642 270 DIPRIVAN - 1,000,000 mcg 96 96 96 In 100 ml @ 5 MCG/KG/MIN 2.177 mls/hr IVPB TITR [facility] Rx#:[id number] Levophed - 8,000 Mcg In 450 450 90 D5w - 492 ml @ 5 MCG/MIN 18.75 mls/hr IV TITR [facility] Rx#:[id number] NITROGLYCERIN 25MG/D5W 36 36 36 250ML 25 mg In 250 ml @ 5 MCG/MIN 3 mls/hr IVPB TITR [facility] Rx#:[id number] Normal Saline - 1,000 ml 60 @ 100 mls/hr IV ASDIR [facility] Rx#:[id number] Versed - 100 mg In Normal 60 60 48 Saline - 100 ml @ 1 MG/ HR 1 mls/hr IVPB TITR [facility] Rx#:[id number] IVPB 100 200 100 Tube Feeding 280 Tube Irrigant 140 Output: Urine 900 3900 Oates 900 3900 Other: Voiding Method Indwelling Catheter Indwelling Catheter Indwelling Catheter Weight Measurement Method Built in [facility] Built in [facility] Active Medications Aspirin (Asa -) 81 mg NGT DAILY [facility] Last Admin: 06/01/17 09:09 Dose: 81 mg Atorvastatin Calcium (Lipitor -) 40 mg NGT HS [facility] Last Admin: 05/31/17 21:15 Dose: 40 mg Chlorhexidine Gluconate (Hibiclens For Decolonization -) 1 applic TP HS [facility] Last Admin: 05/31/17 21:16 Dose: 1 applic Furosemide (Lasix Injection -) 40 mg IVPUSH ONCE ONE Stop: 06/01/17 16:01 Norepinephrine Bitartrate 8, (000 mcg/ Dextrose) 500 mls @ 18.75 mls/hr IV TITR [facility]; 5 MCG/MIN PRN Reason: Protocol Last Titration: 06/01/17 06:40 Dose: 2 mcg/min, 7.5 mls/hr Midazolam HCl 100 mg/ Sodium (Chloride) 100 mls @ 1 mls/hr IVPB TITR [facility]; 1 MG/ HR PRN Reason: Protocol Last Admin: 06/01/17 04:19 Dose: Not Given Propofol (Diprivan -) 1,000,000 mcg in 100 mls @ 2.177 mls/hr IVPB TITR [facility]; 5 MCG/KG/MIN PRN Reason: Protocol Last Titration: 06/01/17 08:30 Dose: 15 mcg/kg/min, 6.532 mls/hr Nitroglycerin/Dextrose (Nitroglycerin 25mg/D5w 250ml) 25 mg in 250 mls @ 3 mls/ hr IVPB TITR [facility] PRN Reason: 5 MCG/MIN Last Admin: 05/31/17 12:08 Dose: Not Given CEFTRIAXONE 1 G/50 ML PREMIX (Ceftriaxone 1 Gm-D5w Bag) 50 mls @ 100 mls/hr IVPB DAILY [facility] Last Admin: 06/01/17 09:09 Dose: 100 mls/hr Insulin Aspart (Novolog Vial Sliding Scale -) 1 vial SQ TIDAC [facility] PRN Reason: Protocol Last Admin: 06/01/17 06:40 Dose: 3 units Insulin Detemir (Levemir Vial) 10 units SQ HS [facility] Last Admin: 05/31/17 21:40 Dose: 10 units Levetiracetam (Keppra Injection -) 1,000 mg IVPB BID [facility] Last Admin: 06/01/17 09:08 Dose: 1,000 mg Mupirocin (Bactroban Ointment (For Decolonization) -) 1 applic NS BID [facility] Stop: 06/02/17 23:29 Last Admin: 05/31/17 21:16 Dose: 1 applic Pantoprazole Sodium (Protonix Iv) 40 mg IVPUSH DAILY [facility] Last Admin: 06/01/17 09:08 Dose: 40 mg CBC, BMP 06/01/17 05:20 06/01/17 05:20 Microbiology 05/28/17 13:30 Blood Culture - Preliminary Blood - Peripheral Venous NO GROWTH OBTAINED AFTER 72 HOURS, INCUBATION TO CONTINUE FOR 2 DAYS. 05/28/17 13:30 Blood Culture - Preliminary Blood - Peripheral Venous NO GROWTH OBTAINED AFTER 72 HOURS, INCUBATION TO CONTINUE FOR 2 DAYS. Physical Examination Constitutional: Yes: Other (intubated/sedated/) Eyes: Yes: Other-- right - enucleated-- left - reactive pupil. 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 Monitor blood sugar. Abx transfusion ordered palliative care team to evaluate condition remains critical prognosis poor will follow Problem List - Problems (1) Cardiac arrest Code(s): I46.9 - CARDIAC ARREST, CAUSE UNSPECIFIED (2) Diabetes Code(s): E11.9 - TYPE 2 DIABETES MELLITUS WITHOUT COMPLICATIONS (3) Elevated troponin Code(s): R74.8 - ABNORMAL LEVELS OF OTHER SERUM ENZYMES (4) Lactic acidosis Code(s): E87.2 - ACIDOSIS (5) CHF (congestive heart failure) Code(s): I50.9 - HEART FAILURE, UNSPECIFIED (6) Anoxic brain damage Code(s): G93.1 - ANOXIC BRAIN DAMAGE, NOT ELSEWHERE CLASSIFIED
--- NOTE | 2017-06-01 11:57 | PN ---
Progress Note (short form) - Note Progress Note: 71 Year old male, Hx of A-fib,DM,HTN,CAD,CHF become unreponsive and later found to have PEA. He was resucitated in ED with three rounds of Epi and was given tpa Bolus. He has been intubated, Today ( June 01) try to wean off sedation but started to have myoclonic jerks. He is still on sedation. 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 off sedation he start to have myoclonic jerks. Brain stem reflex are present at this time. Presence of Myoclonic jerks is poor prognostic sign, Over all prognosis is guarded at this time. Plan- continue keppra for now, if myoclonic jerks is concern, depakote 500 mg po can be added - EEG Pending - CT may help to determine prognosis, consider ct head once stabe. Usually myoclonic jerks are very intractable and resistant to treatment. Thanking you so much Marcus Rivas MD
--- NOTE | 2017-06-01 12:17 | PN ---
Progress Note, Physician Chief Complaint: resp failure, PEA arrest History of Present Illness: intubated/sedated - Current Medication List Current Medications: Active Medications Aspirin (Asa -) 81 mg NGT DAILY [facility] Last Admin: 06/01/17 09:09 Dose: 81 mg Atorvastatin Calcium (Lipitor -) 40 mg NGT HS [facility] Last Admin: 05/31/17 21:15 Dose: 40 mg Chlorhexidine Gluconate (Hibiclens For Decolonization -) 1 applic TP HS [facility] Last Admin: 05/31/17 21:16 Dose: 1 applic Furosemide (Lasix Injection -) 40 mg IVPUSH ONCE ONE Stop: 06/01/17 16:01 Norepinephrine Bitartrate 8, (000 mcg/ Dextrose) 500 mls @ 18.75 mls/hr IV TITR [facility]; 5 MCG/MIN PRN Reason: Protocol Last Titration: 06/01/17 06:40 Dose: 2 mcg/min, 7.5 mls/hr Midazolam HCl 100 mg/ Sodium (Chloride) 100 mls @ 1 mls/hr IVPB TITR [facility]; 1 MG/ HR PRN Reason: Protocol Last Admin: 06/01/17 04:19 Dose: Not Given Propofol (Diprivan -) 1,000,000 mcg in 100 mls @ 2.177 mls/hr IVPB TITR [facility]; 5 MCG/KG/MIN PRN Reason: Protocol Last Titration: 06/01/17 08:30 Dose: 15 mcg/kg/min, 6.532 mls/hr Nitroglycerin/Dextrose (Nitroglycerin 25mg/D5w 250ml) 25 mg in 250 mls @ 3 mls/ hr IVPB TITR [facility] PRN Reason: 5 MCG/MIN Last Admin: 05/31/17 12:08 Dose: Not Given CEFTRIAXONE 1 G/50 ML PREMIX (Ceftriaxone 1 Gm-D5w Bag) 50 mls @ 100 mls/hr IVPB DAILY [facility] Last Admin: 06/01/17 09:09 Dose: 100 mls/hr Insulin Aspart (Novolog Vial Sliding Scale -) 1 vial SQ TIDAC [facility] PRN Reason: Protocol Last Admin: 06/01/17 06:40 Dose: 3 units Insulin Detemir (Levemir Vial) 10 units SQ HS [facility] Last Admin: 05/31/17 21:40 Dose: 10 units Levetiracetam (Keppra Injection -) 1,000 mg IVPB BID [facility] Last Admin: 06/01/17 09:08 Dose: 1,000 mg Mupirocin (Bactroban Ointment (For Decolonization) -) 1 applic NS BID [facility] Stop: 06/02/17 23:29 Last Admin: 05/31/17 21:16 Dose: 1 applic Pantoprazole Sodium (Protonix Iv) 40 mg IVPUSH DAILY [facility] Last Admin: 06/01/17 09:08 Dose: 40 mg Valproate Sodium (Depacon Injection -) 500 mg IVPB BID [facility] - Objective Vital Signs: Vital Signs Temperature 98.4 F 06/01/17 06:00 Pulse Rate 76 06/01/17 09:25 Respiratory Rate 16 06/01/17 09:20 Blood Pressure 124/54 06/01/17 08:00 O2 Sat by Pulse Oximetry (%) 99 06/01/17 09:25 Constitutional: Yes: Well Nourished, No Distress, Calm Cardiovascular: Yes: Regular Rate and Rhythm, S1, S2. No: JVD (very tds exam), Gallop, Murmur Respiratory: Yes: Regular, CTA Bilaterally (anteriorly). No: Accessory Muscle Use, Rales, Wheezes Extremities: No: Cold Edema: Yes (UEs) Neurological: No: Alert, Oriented, Seizure Psychiatric: No: Agitated Labs: CBC, BMP 06/01/17 05:20 06/01/17 05:20 INR, PTT INR 1.35 (0.82-1.09) H 05/30/17 05:35 - ....Imaging EKG: Other (tele: NSR, brief run SVT, NSVT x5b) Assessment/Plan ecg 05/28/17: sr, nl intervals, nonspec tw changes echo 10/2013: nl lv s/f, nl rv s/f, mild mr/tr echo 10/2016: lvef 40, anteroseptal hk, g2dd, nl rv, mild lae, mild-mod mr, mild tr, mod phtn, ivc mildly dilated echo 05/2017: mild lvh, sev dec lvef, global hk, rv mildly dec fcn, mild mr, mild tr cxr (reviewed images): chf changes a/p: 71 m hx dm, hld, syst chf (ICM), cad s/p pci (cath [facility] 08/2014: [place] to mlad; residual 30-50 dlcx, 80-90 mrca-->staged pci 11/2014 with [place] to mrca) here with resp distress. Acute Hypoxic and Hypercapneic Respiratory Failure, acute on chronic syst chf, PEA arrest, shock (cardiogenic likely) with lactic acidosis: -recvd tPA in ER for ? PE--clinical picture not suggestive of this dx -05/30: CXR showing progressive chf changes, d/c'd IVF, lasix 40 iv x1 given. good UOP (2L) but I > O yesterday -05/31: CXR worse, bun/creat today slightly higher -incr'd lasix today 40 iv BID 05/31 -06/01: 4800 cc UOP yest; CXR improving slightly, bun/creat rising slightly -cont lasix 40 iv bid today -cont nitrates (gtt) for cardiorenal syndrome -d/w'd crit care: will cont low dose levophed for now (also ? inotropic properties) -holding BB, Entresto here due to hemodynamic instability at the moment. will plan to resume carvedilol (6.25 bid home dose) once better diuresed, sooner if frequent NSVT appears on tele -low albumin, 3rd spacing UEs--defer albumin with lasix since he is mounting brisk diuresis response. NSTEMI, cad s/p pci: -trop rise and fall pattern here, no isch ecg changes--suspect Type II ME sec to acute chf, though can't exclude small Type I ME (doubt the etiology of acute chf) -defer AC given dx uncertain, and it is now 48 hrs out from the acute event-- low threshold to start heparin if ischemic s/sx ensue -has OGT: start asa, monitor H/H trend, check stool occult blood -cont atorva 40 -resume b-genaro once better diuresed VTach: -brief NSVT on tele -K/Mag good -home carvedilol on hold given acute chf, with slow response to diuresis ( remains intubated)--resume BB later as above -cont tele monitoring elevated lfts: -likely from hypotension -LFTs resolved kandice on CKD: -last creat here 1.3 in 2014; was 1.5 on admit, up to 1.7, now back to 1.5-- i.e. may be close to his recent outpt baseline -suspect some component of hypoperfusion related to acute chf/shock -creat trending up slightly with diuresis, remains with chf/vol overload-- observe trend -nitrates for cardiorenal syndrome as doing anemia: -? recent baseline -06/01: trending down, for PRBCs today hld: -resume statin when stable, lfts normalized DM: -per critical care est time in review of data, pt exam, and formulating plan to manage life- threatening illness = 35 min
[2017-06-01] MEDS: VALPROATE SODIUM 500 MG/5 ML VIAL IVPB SCH ×2 (12:51→21:06)
[2017-06-01] MEDS: MUPIROCIN 2% TOPICAL OINTMENT FOR DECOLONIZATION NS SCH ×2 (13:14→21:05)
[2017-06-01] MEDS ORDERED: FUROSEMIDE 40 MG/4 ML INJECTABLE VIAL ONE (15:42)
[2017-06-01] MEDS: NITROGLYCERIN 25MG/D5W 250ML 25 MG/250 ML ML IVPB SCH (19:50)
[2017-06-01] MEDS: INSULIN DETEMIR 100 UNITS/ML MDV SQ SCH (21:06)
[2017-06-01] MEDS: CHLORHEXIDINE GLUCONATE 4% CLEANSER FOR DECOLONIZATION TP SCH (21:06)
[2017-06-01] MEDS: ATORVASTATIN CA 40 MG TABLET (FP) NGT SCH (21:07)
[2017-06-02] MEDS: MIDAZOLAM 100 MG in SODIUM CHLORIDE 100 ML IVPB SCH (00:38)
[2017-06-02] MEDS: PROPOFOL 1,000,000 MCG/100 ML VIAL IVPB SCH (00:38)
[2017-06-02 06:14] LABS: BASO % 0.3 % (0-2.0); EOS % 1.1 % (0-4.5); HEMATOCRIT 26.5 % (35.4-49); HEMOGLOBIN 8.7 GM/dL (11.7-16.9); LYMPH % 9.1 % (8-40); MCH 30.1 pg (25.7-33.7); MEAN CELL VOLUME 91.3 fl (80-96); MEAN PLT VOLUME 9.6 fl (7.5-11.1); NEUT % 77.5 % (42.8-82.8); PLATELET COUNT 138 K/MM3 (134-434); WHITE BLOOD COUNT 5.2 K/mm3 (4.0-10.0)
[2017-06-02 06:25] LABS: ALBUMIN 1.6 g/dl (3.4-5.0); ANION GAP 9 (8-16); BILIRUBIN,TOTAL 0.4 mg/dL (0.2-1.0); BLOOD UREA NITROGEN 50 mg/dL (7-18); CALCIUM 7.7 mg/dL (8.5-10.1); CHLORIDE 100 mmol/L (98-107); CO2 33 mmol/L (21-32); CREATININE 1.5 mg/dL (0.7-1.3); PHOSPHOROUS 4.3 mg/dL (2.5-4.9); POTASSIUM 4.3 mmol/L (3.5-5.1); SGOT/AST 24 U/L (15-37); SGPT/ALT 24 U/L (12-78); SODIUM 142 mmol/L (136-145); TOT PROT 4.4 g/dl (6.4-8.2)
[2017-06-02 06:26] LABS: ALK PHOS 158 U/L (45-117)
[2017-06-02] MEDS: INSULIN SLIDING SCALE (NOVOLOG) 1 VIAL SQ SCH ×3 (06:42→17:09)
[2017-06-02 06:55] LABS: GLUCOSE,RANDOM 48 mg/dL (74-106)
[2017-06-02] MEDS ORDERED: DEXTROSE 50%-WATER - 25 GM/50 ML VIAL IVPUSH ONE (07:06)
[2017-06-02 07:42] LABS: ARTERIAL BLD GAS O2 SATURATION 99.6 % (90-98.9); ARTERIAL BLOOD GAS BASE EXCESS 9.7 meq/l (-2-2); ARTERIAL BLOOD GAS pH 7.47 (7.35-7.45)
[2017-06-02 07:51] LABS: ALLENS TEST POSITIVE
--- NOTE | 2017-06-02 08:47 | PN ---
Physical Exam: SUBJECTIVE: Patient seen and examined. Intubated and sedated. OBJECTIVE: Vital Signs Period Temp Pulse Resp BP Sys/Scruggs Pulse Ox Last 24 Hr 98.6 F-98.9 F 74-84 13-22 102-127/50-95 98-99 GENERAL: The patient is sedated and intubated. VCV/AC, TV-350, FiO2-40%, RR-14, PEEP-5 EYES: Enucleated R eye, L eye reactive, sclera anicteric, conjunctiva clear. ENT: RIJ, intubated, NGT NECK: Trachea midline, full range of motion, supple. LUNGS: Breath sounds equal, clear to auscultation bilaterally, no wheezes, no crackles, no accessory muscle use. HEART: Regular rate and rhythm, S1, S2 without murmur, rub or gallop. ABDOMEN: Soft, nontender, nondistended, normoactive bowel sounds, no guarding, no rebound, no hepatosplenomegaly, no masses. : Canales catheter in place EXTREMITIES: SCDs bilaterally. 2+ pulses, warm NEUROLOGICAL: Sedated, unable to assess PSYCH: Unable to assess Laboratory Results - last 24 hr 06/01/17 06/01/17 06/01/17 10:15 11:32 16:55 WBC RBC Hgb Hct MCV MCH MCHC RDW Plt Count MPV Neutrophils % Lymphocytes % Monocytes % Eosinophils % Basophils % Puncture Site ABG pH ABG pCO2 at Pt Temp ABG pO2 at Pt Temp ABG HCO3 ABG O2 Sat (Measured) ABG O2 Content ABG Base Excess Maulik Test O2 Delivery Device Oxygen Flow Rate Vent Mode Vent Rate PEEP Pressure Support Vent Sodium Potassium Chloride Carbon Dioxide Anion Gap BUN Creatinine Creat Clearance w eGFR POC Glucometer 160.94247 142.82548 Random Glucose Calcium Phosphorus Magnesium Total Bilirubin AST ALT Alkaline Phosphatase Total Protein Albumin Blood Type O POSITIVE Antibody Screen Negative Crossmatch See Detail 06/02/17 06/02/17 06/02/17 05:10 05:10 07:15 WBC 5.2 RBC 2.90 L Hgb 8.7 L D Hct 26.5 L MCV 91.3 MCH 30.1 MCHC 33.0 RDW 17.0 H Plt Count 138 MPV 9.6 Neutrophils % 77.5 Lymphocytes % 9.1 Monocytes % 12.0 H Eosinophils % 1.1 Basophils % 0.3 Puncture Site Right radial ABG pH 7.47 H ABG pCO2 at Pt Temp 47.0 H ABG pO2 at Pt Temp 157.0 H* ABG HCO3 34.1 H ABG O2 Sat (Measured) 99.6 H* ABG O2 Content 11.8 L ABG Base Excess 9.7 H Maulik Test Positive O2 Delivery Device Vent Oxygen Flow Rate 40% Vent Mode Vent Vent Rate 14 PEEP 5.0 Pressure Support Vent 350 Sodium 142 Potassium 4.3 Chloride 100 Carbon Dioxide 33 H Anion Gap 9 BUN 50 H Creatinine 1.5 H Creat Clearance w eGFR 45.87 POC Glucometer Random Glucose 48 L* D Calcium 7.7 L Phosphorus 4.3 Magnesium 2.0 Total Bilirubin 0.4 AST 24 ALT 24 Alkaline Phosphatase 158 H Total Protein 4.4 L Albumin 1.6 L Blood Type Antibody Screen Crossmatch Active Medications Generic Name Dose Route Start Last Admin Trade Name Freq PRN Reason Stop Dose Admin Aspirin 81 mg 05/31/17 10:30 06/01/17 09:09 Asa - NGT 81 mg DAILY [facility] Administration Atorvastatin Calcium 40 mg 05/31/17 22:00 06/01/17 21:07 Lipitor - NGT 40 mg HS [facility] Administration Chlorhexidine Gluconate 1 applic 05/28/17 23:30 06/01/17 21:06 Hibiclens For Decolonization - TP 1 applic HS [facility] Administration Norepinephrine Bitartrate 8, 500 mls @ 18.75 mls/hr 05/28/17 14:45 06/01/17 17:07 000 mcg/ Dextrose IV 0 mcg/min TITR [facility] 0 mls/hr Protocol Titration 5 MCG/MIN Midazolam HCl 100 mg/ Sodium 100 mls @ 1 mls/hr 05/29/17 00:15 06/02/17 00:38 Chloride IVPB Not Given TITR [facility] Protocol 1 MG/HR Propofol 1,000,000 mcg in 100 mls @ 2.177 mls/hr 05/29/17 00:15 06/02/17 00: 38 Diprivan - IVPB 18.37 mcg/kg/min TITR [facility] 8 mls/hr Protocol Administration 5 MCG/KG/MIN Nitroglycerin/Dextrose 25 mg in 250 mls @ 3 mls/hr 05/30/17 09:45 06/01/17 19 :50 Nitroglycerin 25mg/D5w 250ml IVPB Not Given TITR [facility] 5 MCG/MIN CEFTRIAXONE 1 G/50 ML PREMIX 50 mls @ 100 mls/hr 05/31/17 10:00 06/01/17 09: 09 Ceftriaxone 1 Gm-D5w Bag IVPB 100 mls/hr DAILY [facility] Administration Insulin Aspart 1 vial 05/29/17 07:00 06/02/17 06:42 Novolog Vial Sliding Scale - SQ Not Given TIDAC [facility] Protocol Insulin Detemir 10 units 05/29/17 22:00 06/01/17 21:06 Levemir Vial SQ 10 units HS [facility] Administration Levetiracetam 1,000 mg 05/30/17 10:30 06/01/17 21:06 Keppra Injection - IVPB 1,000 mg BID [facility] Administration Mupirocin 1 applic 05/28/17 23:30 06/01/17 21:05 Bactroban Ointment (For Decolonization) - NS 06/02/17 23:29 1 applic BID [facility] Administration Pantoprazole Sodium 40 mg 05/28/17 19:00 06/01/17 09:08 Protonix Iv IVPUSH 40 mg DAILY [facility] Administration Valproate Sodium 500 mg 06/01/17 12:00 06/01/17 21:06 Depacon Injection - IVPB 500 mg BID [facility] Administration ASSESSMENT/PLAN: 71yo M, PMHx of HTN, DM, afib, CAD s/p stents, LV systolic dysfunction who became unresponsive on the cab ride to his doctor's office has been intubated and sedated, last failed extubation 05/29. Neuro: Sedated: Had myoclonic jerks earlier D/W Dr Aguilar Stop versed Continue propofol 15mcg/kg/min Cont nitro drip 5mcg/min Continue ivpb Keppra 100mg bid Valproate sodium ivpb bid CT head EEG Palliative care on board for discussion with family Resp: Acute hypoxic Respiratory failure- Intubated VCV-AC- TV-350, Fio2-40%, RR-14, PEEP -5% Propofol gtt- 15mcg/kg/min Stop versed Bactoban Mupirocin CXR Cardio/HLD: HTN/CAD, s/p PCI/Afib nitroglycerin gtt- 5mcg/min ASA 81 NGT Lipitor 40NGT HS Off pressors Metab: DM Insulin determir- 10HS Insulin aspart SS / Lytes/ID/Tubes and lines BMP Cr- 1.5- downward trending Zosyn- day 4 Ceftriaxone-1g- day Canales catheter in place RIJ, intubated, NGT,RUE peripheral line Hemonc: H&H-8.7/.5- stable s/p 1unit PRBCs CBC GI/Nutrition: NGT feeding Glucerna 1.5 @ 40ml/hr Pantoprazole iv 40mg daily Prophylaxis: pantoprazole iv 40mg daily Social/Dispo: Full code for now- based on Palliative care on board poor prognosis Continue intubation in ICU and continue conversations with family Visit type - Emergency Visit Emergency Visit: Yes ED Registration Date: 05/28/17 Care time: The patient presented to the Emergency Department on the above date and was hospitalized for further evaluation of their emergent condition. - New Patient This patient is new to me today: Yes Date on this admission: 06/02/17 - Critical Care Critical Care patient: Yes Total Critical Care Time (in minutes): 40 Critical Care Statement: The care of this patient involved high complexity decision making to prevent further life threatening deterioration of the patient 's condition and/or to evaluate & treat vital organ system(s) failure or risk of failure. - Discharge Referral Referred to [facility] No
[2017-06-02] MEDS: levETIRAcetam 500 MG/5 ML INJECTION VIAL IVPB SCH ×2 (09:08→22:32)
[2017-06-02 09:11] LABS: COCAINE, UR NEGATIVE ng/ml (CUTOFF=300); METHADONE, UR NEGATIVE ng/ml (CUTOFF=300); OPIATES, URI NEGATIVE ng/ml (CUTOFF=300); PHENCYCLIDINE,URINE NEGATIVE ng/ml (CUTOFF=25); URINE AMPHETAMINES NEGATIVE ng/ml (CUTOFF=500); URINE BARBITURATES NEGATIVE ng/ml (CUTOFF=200)
[2017-06-02] MEDS: VALPROATE SODIUM 500 MG/5 ML VIAL IVPB SCH ×2 (09:18→22:31)
--- NOTE | 2017-06-02 09:24 | PN ---
Progress Note (short form) - Note Progress Note: 71 Year old male, Hx of A-fib,DM,HTN,CAD,CHF become unreponsive and later found to have PEA. He was resucitated in ED with three rounds of Epi and was given tpa Bolus. He has been intubated, Today ( June 01) try to wean off sedation but started to have myoclonic jerks. He is still on sedation( minimal), yesterday there was no myoclonic jerks after adding depakote . 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 off pressures, not reponsding to pain or verbal stimuli( minimal sedation), brain stem function intact. Presence of Myoclonic jerks is poor prognostic sign, Over all prognosis is guarded at this time. Plan- continue keppra for now, and depakote - Plan to do ct head and eeg - continue supportive treatment Thanking you so much Marcus Rivas MD
[2017-06-02 09:32] LABS: URINE BENZODIAZEPINES POSITIVE ng/ml (CUTOFF=200)
--- NOTE | 2017-06-02 09:35 | PN ---
Progress Note (short form) - Note Progress Note: overall condition same Intubated/and sedated Occasional jerky movements Afebrile Vital Signs Temp 98.9 F 06/02/17 06:00 Pulse 84 06/02/17 06:00 Resp 20 06/02/17 07:09 BP 111/60 06/02/17 06:00 Pulse Ox 99 06/01/17 20:00 Intake & Output 06/01/17 06/01/17 06/02/17 11:59 23:59 11:59 Intake Total 370 931 976 Output Total 2750 600 Balance 370 -1819 376 Weight 200 lb 1.6 oz 200 lb 1.6 oz Intake: IV 270 281 156 DIPRIVAN - 1,000,000 mcg 96 83 96 In 100 ml @ 5 MCG/KG/MIN 2.177 mls/hr IVPB TITR [facility] Rx#:[id number] Levophed - 8,000 Mcg In 90 129 D5w - 492 ml @ 5 MCG/MIN 18.75 mls/hr IV TITR [facility] Rx#:[id number] NITROGLYCERIN 25MG/D5W 36 32 36 250ML 25 mg In 250 ml @ 5 MCG/MIN 3 mls/hr IVPB TITR [facility] Rx#:[id number] Versed - 100 mg In Normal 48 37 24 Saline - 100 ml @ 1 MG/ HR 1 mls/hr IVPB TITR [facility] Rx#:[id number] IVPB 100 250 100 Tube Feeding 480 Packed Cells 350 Tube Irrigant 50 240 Output: Urine 2750 600 Oates 2750 600 Other: Voiding Method Indwelling Catheter Indwelling Catheter Indwelling Catheter Weight Measurement Method Built in [facility] Built in [facility] Active Medications Aspirin (Asa -) 81 mg NGT DAILY [facility] Last Admin: 06/01/17 09:09 Dose: 81 mg Atorvastatin Calcium (Lipitor -) 40 mg NGT HS [facility] Last Admin: 06/01/17 21:07 Dose: 40 mg Chlorhexidine Gluconate (Hibiclens For Decolonization -) 1 applic TP HS [facility] Last Admin: 06/01/17 21:06 Dose: 1 applic Norepinephrine Bitartrate 8, (000 mcg/ Dextrose) 500 mls @ 18.75 mls/hr IV TITR [facility]; 5 MCG/MIN PRN Reason: Protocol Last Titration: 06/01/17 17:07 Dose: 0 mcg/min, 0 mls/hr Midazolam HCl 100 mg/ Sodium (Chloride) 100 mls @ 1 mls/hr IVPB TITR [facility]; 1 MG/ HR PRN Reason: Protocol Last Admin: 06/02/17 00:38 Dose: Not Given Propofol (Diprivan -) 1,000,000 mcg in 100 mls @ 2.177 mls/hr IVPB TITR [facility]; 5 MCG/KG/MIN PRN Reason: Protocol Last Admin: 06/02/17 00:38 Dose: 18.37 mcg/kg/min, 8 mls/hr Nitroglycerin/Dextrose (Nitroglycerin 25mg/D5w 250ml) 25 mg in 250 mls @ 3 mls/ hr IVPB TITR [facility] PRN Reason: 5 MCG/MIN Last Admin: 06/01/17 19:50 Dose: Not Given CEFTRIAXONE 1 G/50 ML PREMIX (Ceftriaxone 1 Gm-D5w Bag) 50 mls @ 100 mls/hr IVPB DAILY [facility] Last Admin: 06/01/17 09:09 Dose: 100 mls/hr Insulin Aspart (Novolog Vial Sliding Scale -) 1 vial SQ TIDAC [facility] PRN Reason: Protocol Last Admin: 06/02/17 06:42 Dose: Not Given Insulin Detemir (Levemir Vial) 8 units SQ HS [facility] Levetiracetam (Keppra Injection -) 1,000 mg IVPB BID [facility] Last Admin: 06/02/17 09:08 Dose: 1,000 mg Mupirocin (Bactroban Ointment (For Decolonization) -) 1 applic NS BID [facility] Stop: 06/02/17 23:29 Last Admin: 06/01/17 21:05 Dose: 1 applic Pantoprazole Sodium (Protonix Iv) 40 mg IVPUSH DAILY [facility] Last Admin: 06/01/17 09:08 Dose: 40 mg Valproate Sodium (Depacon Injection -) 500 mg IVPB BID [facility] Last Admin: 06/02/17 09:18 Dose: 500 mg CBC, BMP 06/02/17 05:10 06/02/17 05:10 Microbiology 05/28/17 13:30 Blood Culture - Preliminary Blood - Peripheral Venous NO GROWTH OBTAINED AFTER 96 HOURS, INCUBATION TO CONTINUE FOR 1 DAYS. 05/28/17 13:30 Blood Culture - Preliminary Blood - Peripheral Venous NO GROWTH OBTAINED AFTER 96 HOURS, INCUBATION TO CONTINUE FOR 1 DAYS. u/c -- e coli Physical Examination Constitutional: Yes: Other (intubated/sedated/) Eyes: Yes: Other-- right - enucleated-- left - reactive pupil. HENT: Yes: Other-- no jvd-- orally intubated Neck: Yes: Other-- Cardiovascular: Yes: Regular Rate and Rhythm Respiratory: Yes: Diminished Gastrointestinal: Yes: Soft/ non tender Edema: LLE: 1+, RLE: 1+ Neurological: Yes: Other (sedated) oates + Assessment/Plan ICU monitoring Anoxic encephalopathy- likely CT head--order EEG Ventilator support Critical team on the case. Monitor blood sugar. Abx transfusion when necessary palliative care team to evaluate condition remains critical prognosis poor will follow discussed with nursing staff also. Problem List - Problems (1) Cardiac arrest Code(s): I46.9 - CARDIAC ARREST, CAUSE UNSPECIFIED (2) Diabetes Code(s): E11.9 - TYPE 2 DIABETES MELLITUS WITHOUT COMPLICATIONS (3) Elevated troponin Code(s): R74.8 - ABNORMAL LEVELS OF OTHER SERUM ENZYMES (4) Lactic acidosis Code(s): E87.2 - ACIDOSIS (5) CHF (congestive heart failure) Code(s): I50.9 - HEART FAILURE, UNSPECIFIED (6) Anoxic brain damage Code(s): G93.1 - ANOXIC BRAIN DAMAGE, NOT ELSEWHERE CLASSIFIED
[2017-06-02] MEDS: CEFTRIAXONE 1 G/50 ML PREMIX 50 ML IVPB SCH (11:41)
[2017-06-02] MEDS: PANTOPRAZOLE SODIUM 40 MG VIAL IVPUSH SCH (11:46)
--- NOTE | 2017-06-02 12:41 | PN ---
Teaching Attending Note Name of Resident: Renate Rajan ATTENDING PHYSICIAN STATEMENT I saw and evaluated the patient. I reviewed the resident's note and discussed the case with the resident. I agree with the resident's findings and plan as documented. SUBJECTIVE: Patient seen and examined in the ICU. Remains intubated and sedated on levophed and nitro drips. AC mode of vent. Still with myoclonic jerk activity. Intake & Output 05/30/17 05/31/17 06/01/17 06/02/17 23:59 23:59 23:59 23:59 Intake Total 2844 2064 1301 976 Output Total 1999 4800 2750 600 Balance 302 -5501 -9574 376 Weight 202 lb 13.204 oz 205 lb 7.533 oz 200 lb 1.6 oz 200 lb 1.6 oz Last Vital Signs Temp Pulse Resp BP Pulse Ox 98.9 F 86 19 111/60 99 06/02/17 06:00 06/02/17 09:50 06/02/17 12:06 06/02/17 06:00 06/02/17 09:50 Active Medications Aspirin (Asa -) 81 mg NGT DAILY [facility] Last Admin: 06/01/17 09:09 Dose: 81 mg Atorvastatin Calcium (Lipitor -) 40 mg NGT HS [facility] Last Admin: 06/01/17 21:07 Dose: 40 mg Chlorhexidine Gluconate (Hibiclens For Decolonization -) 1 applic TP HS [facility] Last Admin: 06/01/17 21:06 Dose: 1 applic Norepinephrine Bitartrate 8, (000 mcg/ Dextrose) 500 mls @ 18.75 mls/hr IV TITR [facility]; 5 MCG/MIN PRN Reason: Protocol Last Titration: 06/01/17 17:07 Dose: 0 mcg/min, 0 mls/hr Propofol (Diprivan -) 1,000,000 mcg in 100 mls @ 2.177 mls/hr IVPB TITR [facility]; 5 MCG/KG/MIN PRN Reason: Protocol Last Admin: 06/02/17 00:38 Dose: 18.37 mcg/kg/min, 8 mls/hr Nitroglycerin/Dextrose (Nitroglycerin 25mg/D5w 250ml) 25 mg in 250 mls @ 3 mls/ hr IVPB TITR [facility] PRN Reason: 5 MCG/MIN Last Admin: 06/01/17 19:50 Dose: Not Given CEFTRIAXONE 1 G/50 ML PREMIX (Ceftriaxone 1 Gm-D5w Bag) 50 mls @ 100 mls/hr IVPB DAILY [facility] Last Admin: 06/02/17 11:41 Dose: 100 mls/hr Insulin Aspart (Novolog Vial Sliding Scale -) 1 vial SQ TIDAC [facility] PRN Reason: Protocol Last Admin: 06/02/17 06:42 Dose: Not Given Insulin Detemir (Levemir Vial) 8 units SQ HS [facility] Levetiracetam (Keppra Injection -) 1,000 mg IVPB BID [facility] Last Admin: 06/02/17 09:08 Dose: 1,000 mg Mupirocin (Bactroban Ointment (For Decolonization) -) 1 applic NS BID [facility] Stop: 06/02/17 23:29 Last Admin: 06/01/17 21:05 Dose: 1 applic Pantoprazole Sodium (Protonix Iv) 40 mg IVPUSH DAILY [facility] Last Admin: 06/02/17 11:46 Dose: 40 mg Valproate Sodium (Depacon Injection -) 500 mg IVPB BID [facility] Last Admin: 06/02/17 09:18 Dose: 500 mg Gen: intubated, sedated with occasional jerks Heart: RRR Lung: scattered rhonchi Abd: soft, nontender Ext: + edema Laboratory Results - last 24 hr 06/01/17 06/01/17 06/02/17 10:15 16:55 05:10 WBC 5.2 RBC 2.90 L Hgb 8.7 L D Hct 26.5 L MCV 91.3 MCH 30.1 MCHC 33.0 RDW 17.0 H Plt Count 138 MPV 9.6 Neutrophils % 77.5 Lymphocytes % 9.1 Monocytes % 12.0 H Eosinophils % 1.1 Basophils % 0.3 Puncture Site ABG pH ABG pCO2 at Pt Temp ABG pO2 at Pt Temp ABG HCO3 ABG O2 Sat (Measured) ABG O2 Content ABG Base Excess Maulik Test O2 Delivery Device Oxygen Flow Rate Vent Mode Vent Rate PEEP Pressure Support Vent Sodium Potassium Chloride Carbon Dioxide Anion Gap BUN Creatinine Creat Clearance w eGFR POC Glucometer 142.66408 Random Glucose Calcium Phosphorus Magnesium Total Bilirubin AST ALT Alkaline Phosphatase Total Protein Albumin Opiates Screen Methadone Screen Barbiturate Screen Phencyclidine Screen Ur Amphetamines Screen MDMA (Ecstasy) Screen Benzodiazepines Screen Cocaine Screen U Marijuana (THC) Screen Blood Type O POSITIVE Antibody Screen Negative Crossmatch See Detail 06/02/17 06/02/17 06/02/17 05:10 06:00 07:15 WBC RBC Hgb Hct MCV MCH MCHC RDW Plt Count MPV Neutrophils % Lymphocytes % Monocytes % Eosinophils % Basophils % Puncture Site Right radial ABG pH 7.47 H ABG pCO2 at Pt Temp 47.0 H ABG pO2 at Pt Temp 157.0 H* ABG HCO3 34.1 H ABG O2 Sat (Measured) 99.6 H* ABG O2 Content 11.8 L ABG Base Excess 9.7 H Maulik Test Positive O2 Delivery Device Vent Oxygen Flow Rate 40% Vent Mode Vent Vent Rate 14 PEEP 5.0 Pressure Support Vent 350 Sodium 142 Potassium 4.3 Chloride 100 Carbon Dioxide 33 H Anion Gap 9 BUN 50 H Creatinine 1.5 H Creat Clearance w eGFR 45.87 POC Glucometer Random Glucose 48 L* D Calcium 7.7 L Phosphorus 4.3 Magnesium 2.0 Total Bilirubin 0.4 AST 24 ALT 24 Alkaline Phosphatase 158 H Total Protein 4.4 L Albumin 1.6 L Opiates Screen Negative Methadone Screen Negative Barbiturate Screen Negative Phencyclidine Screen Negative Ur Amphetamines Screen Negative MDMA (Ecstasy) Screen Negative Benzodiazepines Screen Positive Cocaine Screen Negative U Marijuana (THC) Screen Negative Blood Type Antibody Screen Crossmatch Problem List - Problems (1) Acute respiratory failure with hypoxia Code(s): J96.01 - ACUTE RESPIRATORY FAILURE WITH HYPOXIA (2) Cardiac arrest Code(s): I46.9 - CARDIAC ARREST, CAUSE UNSPECIFIED (3) Acute pulmonary edema Code(s): J81.0 - ACUTE PULMONARY EDEMA (4) Acute on chronic systolic heart failure Code(s): I50.23 - ACUTE ON CHRONIC SYSTOLIC (CONGESTIVE) HEART FAILURE (5) Atrial fibrillation Code(s): I48.91 - UNSPECIFIED ATRIAL FIBRILLATION (6) Elevated troponin Code(s): R74.8 - ABNORMAL LEVELS OF OTHER SERUM ENZYMES (7) Hyperkalemia Code(s): E87.5 - HYPERKALEMIA (8) Hypertension Code(s): I10 - ESSENTIAL (PRIMARY) HYPERTENSION (9) Diabetes Code(s): E11.9 - TYPE 2 DIABETES MELLITUS WITHOUT COMPLICATIONS IMP: Acute Hypoxic and Hypercapneic Respiratory Failure s/p PEA Cardiopulmonary Arrest Acute Pulmonary Edema Acute on Chronic Systolic Heart Failure Shock - Likely Cardiogenic Acute CO UTI Acute Kidney Injury Lactic Acidosis Elevated LFTs HTN DM - ABX - titrate levophed gtt to maintain MAP >65 - transfuse PRBC - Lasix - continue nitro gtt if BP tolerates - monitor urine output, creatinine - Lighten sedation in AM to assess mental status - start spontaneous breathing trials if mental status improved - enteral feeds - DVT/GI prophylaxis - ICU monitoring - poor overall prognosis, discuss with family goals of care, advance directives Dr Aguilar critical care time spent in reviewing chart, evaluating patient and formulating plan 40 min
--- NOTE | 2017-06-02 14:50 | PN ---
Progress Note (short form) - Note Progress Note: Chief Complaint: resp failure, PEA arrest History of Present Illness: intubated/sedated. s/p lasix 40 mg IV x 2 yesterday and s/p transfusion of 1 Unit of prbc's. levophed weaned. Current Medications Aspirin (Asa -) 81 mg NGT DAILY [facility] Last Admin: 06/01/17 09:09 Dose: 81 mg Atorvastatin Calcium (Lipitor -) 40 mg NGT HS [facility] Last Admin: 06/01/17 21:07 Dose: 40 mg Chlorhexidine Gluconate (Hibiclens For Decolonization -) 1 applic TP HS [facility] Last Admin: 06/01/17 21:06 Dose: 1 applic Propofol (Diprivan -) 1,000,000 mcg in 100 mls @ 2.177 mls/hr IVPB TITR [facility]; 5 MCG/KG/MIN PRN Reason: Protocol Last Admin: 06/02/17 00:38 Dose: 18.37 mcg/kg/min, 8 mls/hr Nitroglycerin/Dextrose (Nitroglycerin 25mg/D5w 250ml) 25 mg in 250 mls @ 3 mls/ hr IVPB TITR [facility] PRN Reason: 5 MCG/MIN Last Admin: 06/01/17 19:50 Dose: Not Given CEFTRIAXONE 1 G/50 ML PREMIX (Ceftriaxone 1 Gm-D5w Bag) 50 mls @ 100 mls/hr IVPB DAILY [facility] Last Admin: 06/02/17 11:41 Dose: 100 mls/hr Insulin Aspart (Novolog Vial Sliding Scale -) 1 vial SQ TIDAC [facility] PRN Reason: Protocol Last Admin: 06/02/17 06:42 Dose: Not Given Insulin Detemir (Levemir Vial) 8 units SQ [facility] Levetiracetam (Keppra Injection -) 1,000 mg IVPB BID [facility] Last Admin: 06/02/17 09:08 Dose: 1,000 mg Mupirocin (Bactroban Ointment (For Decolonization) -) 1 applic NS BID [facility] Stop: 06/02/17 23:29 Last Admin: 06/01/17 21:05 Dose: 1 applic Pantoprazole Sodium (Protonix Iv) 40 mg IVPUSH DAILY [facility] Last Admin: 06/02/17 11:46 Dose: 40 mg Valproate Sodium (Depacon Injection -) 500 mg IVPB BID [facility] Last Admin: 06/02/17 09:18 Dose: 500 mg Vital Signs - 24 hr 06/01/17 06/01/17 06/01/17 16:00 16:33 18:00 Temperature Pulse Rate 79 80 Respiratory 13 18 14 Rate Blood Pressure 112/74 102/78 O2 Sat by Pulse Oximetry (%) 06/01/17 06/01/17 06/01/17 18:38 20:00 20:42 Temperature Pulse Rate 82 Respiratory 19 19 15 Rate Blood Pressure 109/62 O2 Sat by Pulse 99 Oximetry (%) 06/01/17 06/01/17 06/02/17 22:00 22:40 00:00 Temperature Pulse Rate 82 Respiratory 22 22 14 Rate Blood Pressure 105/50 O2 Sat by Pulse Oximetry (%) 06/02/17 06/02/17 06/02/17 01:19 02:00 04:00 Temperature 98.7 F 98.6 F Pulse Rate 83 81 Respiratory 14 20 14 Rate Blood Pressure 127/95 106/50 O2 Sat by Pulse Oximetry (%) 06/02/17 06/02/17 06/02/17 06:00 07:09 09:20 Temperature 98.9 F Pulse Rate 84 Respiratory 16 20 22 Rate Blood Pressure 111/60 O2 Sat by Pulse 99 Oximetry (%) 06/02/17 06/02/17 09:50 12:06 Temperature Pulse Rate 86 Respiratory 19 Rate Blood Pressure O2 Sat by Pulse 99 Oximetry (%) Intake & Output 05/31/17 06/01/17 06/02/17 06/03/17 07:59 07:59 07:59 07:59 Intake Total 1462 1212 1907 Output Total 7708 7886 6530 Balance -915 -9483 -2913 Weight 205 lb 7.533 oz 200 lb 1.6 oz 200 lb 1.6 oz Constitutional: Yes: Well Nourished, No Distress, Calm, intubated sedated. Cardiovascular: Yes: Regular Rate and Rhythm, S1, S2. No: JVD (very tds exam), Gallop, Murmur Respiratory: Yes: Regular, mechanical breath sounds. No: Accessory Muscle Use, Rales, Wheezes Extremities: No: Cold Edema: diffuse 1+ tense edema. Neurological: sedated Psychiatric: No: Agitated 1+ dp/pt Labs: CBC, BMP 06/02/17 05:10 06/02/17 05:10 Microbiology 05/28/17 13:40 Urine - Urine [place] Urine Culture - Final Escherichia Coli Laboratory Tests 06/01/17 06/02/17 06/02/17 05:20 05:10 06:00 ABG pH ABG pCO2 at Pt Temp ABG pO2 at Pt Temp Carbon Dioxide 34 H BUN 48 H Creatinine 1.7 H Magnesium 2.0 Total Bilirubin 0.4 AST 24 ALT 24 Alkaline Phosphatase 187 H 158 H Albumin 1.6 L Benzodiazepines Screen Positive 06/02/17 07:15 ABG pH 7.47 H ABG pCO2 at Pt Temp 47.0 H ABG pO2 at Pt Temp 157.0 H* Carbon Dioxide BUN Creatinine Magnesium Total Bilirubin AST ALT Alkaline Phosphatase Albumin Benzodiazepines Screen - ....Imaging EKG: Other (tele: NSR, brief run SVT, NSVT x5b) Assessment/Plan ecg 05/28/17: sr, nl intervals, nonspec tw changes echo 10/2013: nl lv s/f, nl rv s/f, mild mr/tr echo 10/2016: lvef 40, anteroseptal hk, g2dd, nl rv, mild lae, mild-mod mr, mild tr, mod phtn, ivc mildly dilated echo 05/2017: mild lvh, sev dec lvef, global hk, rv mildly dec fcn, mild mr, mild tr cxr (reviewed images): chf changes cxr 06/02: no sig change a/p: 71 m hx dm, hld, syst chf (ICM), cad s/p pci (cath [facility] 08/2014: [place] to mlad; residual 30-50 dlcx, 80-90 mrca-->staged pci 11/2014 with [place] to mrca) here with resp distress. Acute Hypoxic and Hypercapneic Respiratory Failure, acute on chronic syst chf, PEA arrest, shock (cardiogenic likely) with lactic acidosis: -recvd tPA in ER for ? PE--clinical picture not suggestive of this dx -05/30: CXR showing progressive chf changes, d/c'd IVF, lasix 40 iv x1 given. good UOP (2L) but I > O yesterday -05/31: CXR worse, bun/creat today slightly higher. incr'd lasix today 40 iv BID 05/31 -06/01: 4800 cc UOP yest; CXR improving slightly, bun/creat rising slightly. cont lasix 40 iv bid today. cont nitrates (gtt) for cardiorenal syndrome. dr. grider d/w'd crit care: will cont low dose levophed for now (also ? inotropic properties). holding BB, Entresto here due to hemodynamic instability at the moment. will plan to resume carvedilol (6.25 bid home dose) once better diuresed , sooner if frequent NSVT appears on tele - 06/02: creatinine improving on lasix 40 mg iV bid. con't. levophed weaned. monitor bp on nitro drip. . -low albumin, 3rd spacing UEs--defer albumin with lasix since he is mounting brisk diuresis response. NSTEMI, cad s/p pci: -trop rise and fall pattern here, no isch ecg changes--suspect Type II NE sec to acute chf, though can't exclude small Type I NE (doubt the etiology of acute chf) -defer AC given dx uncertain, and it is now 48 hrs out from the acute event-- low threshold to start heparin if ischemic s/sx ensue -has OGT: start asa, monitor H/H trend, check stool occult blood -cont atorva and nitro drip. -resume b-genaro once better diuresed VTach: -brief NSVT on tele -K/Mag good -home carvedilol on hold given acute chf, with slow response to diuresis ( remains intubated)--resume BB later as above -cont tele monitoring elevated lfts: -likely from hypotension -LFTs resolved kandice on CKD: -last creat here 1.3 in 2014; was 1.5 on admit, up to 1.7, now back to 1.5-- i.e. may be close to his recent outpt baseline -suspect some component of hypoperfusion related to acute chf/shock - remains with chf/vol overload--observe cr trend with diuresis -nitrates for cardiorenal syndrome as doing anemia: -? recent baseline -06/01: trending down, for PRBCs today hld: -resumed statin , lfts normalized DM: -per critical care est time in review of data, pt exam, and formulating plan to manage life- threatening illness = 35 min
[2017-06-02] MEDS: MUPIROCIN 2% TOPICAL OINTMENT FOR DECOLONIZATION NS SCH ×2 (15:53→22:31)
[2017-06-02] MEDS: NITROGLYCERIN 25MG/D5W 250ML 25 MG/250 ML ML IVPB SCH (22:27)
[2017-06-02] MEDS: CHLORHEXIDINE GLUCONATE 4% CLEANSER FOR DECOLONIZATION TP SCH (22:32)
[2017-06-02] MEDS: INSULIN DETEMIR 100 UNITS/ML MDV SQ SCH (22:32)
[2017-06-02] MEDS: ATORVASTATIN CA 40 MG TABLET (FP) NGT SCH (22:33)
[2017-06-03] MEDS: INSULIN SLIDING SCALE (NOVOLOG) 1 VIAL SQ SCH ×3 (06:09→16:49)
[2017-06-03 06:12] LABS: BASO % 0.3 % (0-2.0); EOS % 0.7 % (0-4.5); HEMATOCRIT 23.9 % (35.4-49); HEMOGLOBIN 7.8 GM/dL (11.7-16.9); LYMPH % 9.3 % (8-40); MCH 30.3 pg (25.7-33.7); MCHC 32.8 g/dl (32.0-35.9); MEAN CELL VOLUME 92.4 fl (80-96); MEAN PLT VOLUME 9.9 fl (7.5-11.1); MONO % 12.1 % (3.8-10.2); NEUT % 77.6 % (42.8-82.8); PLATELET COUNT 134 K/MM3 (134-434); RBC 2.59 M/mm3 (4.00-5.60); RDW 16.2 % (11.9-15.9); WHITE BLOOD COUNT 4.4 K/mm3 (4.0-10.0)
[2017-06-03 06:34] LABS: ALBUMIN 1.5 g/dl (3.4-5.0); ANION GAP 8 (8-16); BLOOD UREA NITROGEN 54 mg/dL (7-18); CALCIUM 7.6 mg/dL (8.5-10.1); CHLORIDE 99 mmol/L (98-107); CO2 33 mmol/L (21-32); GLUCOSE,RANDOM 132 mg/dL (74-106); MAGNESIUM 2.2 mg/dL (1.8-2.4); POTASSIUM 4.6 mmol/L (3.5-5.1); SODIUM 140 mmol/L (136-145)
[2017-06-03 06:38] LABS: ALK PHOS 154 U/L (45-117); BILIRUBIN,TOTAL 0.4 mg/dL (0.2-1.0); CREATININE 1.7 mg/dL (0.7-1.3); PHOSPHOROUS 4.3 mg/dL (2.5-4.9); SGOT/AST 25 U/L (15-37); SGPT/ALT 21 U/L (12-78); TOT PROT 4.1 g/dl (6.4-8.2)
[2017-06-03] MEDS: PROPOFOL 1,000,000 MCG/100 ML VIAL IVPB SCH ×2 (07:35→18:35)
[2017-06-03 07:44] LABS: ARTERIAL BLD GAS O2 SATURATION 99.2 % (90-98.9); ARTERIAL BLOOD GAS BASE EXCESS 9.2 meq/l (-2-2); ARTERIAL BLOOD GAS PCO2 45.5 mmHg (35-45); ARTERIAL BLOOD GAS pH 7.48 (7.35-7.45)
[2017-06-03 07:55] LABS: ALLENS TEST POSITIVE
[2017-06-03] MEDS: CEFTRIAXONE 1 G/50 ML PREMIX 50 ML IVPB SCH (09:05)
[2017-06-03] MEDS: VALPROATE SODIUM 500 MG/5 ML VIAL IVPB SCH ×2 (09:05→22:02)
[2017-06-03] MEDS: levETIRAcetam 500 MG/5 ML INJECTION VIAL IVPB SCH ×2 (09:06→22:01)
[2017-06-03] MEDS: PANTOPRAZOLE SODIUM 40 MG VIAL IVPUSH SCH (09:06)
[2017-06-03] MEDS: FUROSEMIDE 40 MG/4 ML INJECTABLE VIAL IVPUSH SCH ×2 (09:14→13:35)
--- NOTE | 2017-06-03 09:40 | PN ---
Progress Note (short form) - Note Progress Note: overall condition same Intubated/and sedated. Occasional jerky movements Afebrile. off levophed. Vital Signs Temp 99.0 F 06/03/17 08:00 Pulse 77 06/03/17 08:00 Resp 18 06/03/17 08:00 BP 125/57 06/03/17 08:00 Pulse Ox 98 06/03/17 08:00 Intake & Output 06/02/17 06/02/17 06/03/17 11:59 23:59 11:59 Intake Total 976 1243 972 Output Total 600 1900 600 Balance 376 -657 372 Weight 200 lb 1.6 oz 196 lb 3.382 oz Intake: IV 156 148 132 DIPRIVAN - 1,000,000 mcg 96 98 96 In 100 ml @ 5 MCG/KG/MIN 2.177 mls/hr IVPB TITR [facility] Rx#:[id number] NITROGLYCERIN 25MG/D5W 36 36 36 250ML 25 mg In 250 ml @ 5 MCG/MIN 3 mls/hr IVPB TITR [facility] Rx#:[id number] Versed - 100 mg In Normal 24 14 Saline - 100 ml @ 1 MG/ HR 1 mls/hr IVPB TITR [facility] Rx#:[id number] IVPB 100 275 Tube Feeding 480 480 600 Tube Irrigant 240 340 240 Output: Urine 600 1900 600 Oates 600 1900 600 Other: Voiding Method Indwelling Catheter Indwelling Catheter Indwelling Catheter Bowel Movement No No Weight Measurement Method Built in [facility] Built in [facility] Active Medications Aspirin (Asa -) 81 mg NGT DAILY [facility] Last Admin: 06/01/17 09:09 Dose: 81 mg Atorvastatin Calcium (Lipitor -) 40 mg NGT HS [facility] Last Admin: 06/02/17 22:33 Dose: 40 mg Chlorhexidine Gluconate (Hibiclens For Decolonization -) 1 applic TP HS [facility] Last Admin: 06/02/17 22:32 Dose: 1 applic Furosemide (Lasix Injection -) 40 mg IVPUSH BID@0600,1400 [facility] Last Admin: 06/03/17 09:14 Dose: 40 mg Propofol (Diprivan -) 1,000,000 mcg in 100 mls @ 2.177 mls/hr IVPB TITR [facility]; 5 MCG/KG/MIN PRN Reason: Protocol Last Admin: 06/03/17 07:35 Dose: 18.37 mcg/kg/min, 7.999 mls/hr Nitroglycerin/Dextrose (Nitroglycerin 25mg/D5w 250ml) 25 mg in 250 mls @ 3 mls/ hr IVPB TITR [facility] PRN Reason: 5 MCG/MIN Last Admin: 06/02/17 22:27 Dose: Not Given CEFTRIAXONE 1 G/50 ML PREMIX (Ceftriaxone 1 Gm-D5w Bag) 50 mls @ 100 mls/hr IVPB DAILY [facility] Last Admin: 06/03/17 09:05 Dose: 100 mls/hr Insulin Aspart (Novolog Vial Sliding Scale -) 1 vial SQ TIDAC [facility] PRN Reason: Protocol Last Admin: 06/03/17 06:09 Dose: Not Given Insulin Detemir (Levemir Vial) 8 units SQ HS [facility] Last Admin: 06/02/17 22:32 Dose: 8 units Levetiracetam (Keppra Injection -) 1,000 mg IVPB BID [facility] Last Admin: 06/03/17 09:06 Dose: 1,000 mg Pantoprazole Sodium (Protonix Iv) 40 mg IVPUSH DAILY [facility] Last Admin: 06/03/17 09:06 Dose: 40 mg Valproate Sodium (Depacon Injection -) 500 mg IVPB BID [facility] Last Admin: 06/03/17 09:05 Dose: 500 mg CBC, BMP 06/03/17 05:55 06/03/17 05:55 Microbiology 05/28/17 13:30 Blood Culture - Final Blood - Peripheral Venous NO GROWTH AFTER 5 DAYS INCUBATION 05/28/17 13:30 Blood Culture - Final Blood - Peripheral Venous NO GROWTH AFTER 5 DAYS INCUBATION Physical Examination Constitutional: Yes: Other (intubated/sedated/) Eyes: Yes: Other-- right - enucleated-- left - reactive pupil. 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 Monitor blood sugar. Abx transfusion prn palliative care team prognosis poor. discussed with nursing staff will follow Problem List - Problems (1) Cardiac arrest Code(s): I46.9 - CARDIAC ARREST, CAUSE UNSPECIFIED (2) Diabetes Code(s): E11.9 - TYPE 2 DIABETES MELLITUS WITHOUT COMPLICATIONS (3) Elevated troponin Code(s): R74.8 - ABNORMAL LEVELS OF OTHER SERUM ENZYMES (4) Lactic acidosis Code(s): E87.2 - ACIDOSIS (5) CHF (congestive heart failure) Code(s): I50.9 - HEART FAILURE, UNSPECIFIED (6) Anoxic brain damage Code(s): G93.1 - ANOXIC BRAIN DAMAGE, NOT ELSEWHERE CLASSIFIED
[2017-06-03] MEDS: NITROGLYCERIN 25MG/D5W 250ML 25 MG/250 ML ML IVPB SCH (09:45)
--- NOTE | 2017-06-03 10:40 | PN ---
Physical Exam: SUBJECTIVE: Patient seen and examined. Still non responsive and versed and also off levophed. Still on propofol and nitro drip. OBJECTIVE: Vital Signs Period Temp Pulse Resp BP Sys/Scruggs Pulse Ox Last 24 Hr 99.0 F-100.1 F 71-92 14- 96-129/50-66 98-99 GENERAL: The patient is sedated and intubated. VCV/AC, TV-350, FiO2-40%, RR-14, PEEP-5 EYES: Enucleated R eye, slowly reactive L eye, sclera anicteric, conjunctiva clear. ENT: RIJ, intubated, OGT NECK: Trachea midline, full range of motion, supple. LUNGS: Breath sounds equal, clear to auscultation bilaterally, no wheezes, no crackles, no accessory muscle use. HEART: Regular rate and rhythm, S1, S2 without murmur, rub or gallop. ABDOMEN: Soft, nontender, nondistended, normoactive bowel sounds, no guarding, no rebound, no hepatosplenomegaly, no masses. : Canales catheter in place EXTREMITIES: SCDs bilaterally. 2+ pulses, warm NEUROLOGICAL: Sedated, unable to assess, myoclonioc jerks+ PSYCH: Unable to assess Laboratory Results - last 24 hr 06/02/17 06/02/17 06/02/17 05:28 07:03 11:58 WBC RBC Hgb Hct MCV MCH MCHC RDW Plt Count MPV Neutrophils % Lymphocytes % Monocytes % Eosinophils % Basophils % Puncture Site ABG pH ABG pCO2 at Pt Temp ABG pO2 at Pt Temp ABG HCO3 ABG O2 Sat (Measured) ABG O2 Content ABG Base Excess Maulik Test O2 Delivery Device Oxygen Flow Rate Vent Mode Vent Rate Mechanical Rate PEEP Pressure Support Vent Sodium Potassium Chloride Carbon Dioxide Anion Gap BUN Creatinine Creat Clearance w eGFR POC Glucometer 70.31781 83.12161 103.15917 Random Glucose Calcium Phosphorus Magnesium Total Bilirubin AST ALT Alkaline Phosphatase Total Protein Albumin 06/02/17 06/03/17 06/03/17 16:49 05:55 05:55 WBC 4.4 RBC 2.59 L Hgb 7.8 L D Hct 23.9 L MCV 92.4 MCH 30.3 MCHC 32.8 RDW 16.2 H Plt Count 134 MPV 9.9 Neutrophils % 77.6 Lymphocytes % 9.3 Monocytes % 12.1 H Eosinophils % 0.7 Basophils % 0.3 Puncture Site ABG pH ABG pCO2 at Pt Temp ABG pO2 at Pt Temp ABG HCO3 ABG O2 Sat (Measured) ABG O2 Content ABG Base Excess Maulik Test O2 Delivery Device Oxygen Flow Rate Vent Mode Vent Rate Mechanical Rate PEEP Pressure Support Vent Sodium 140 Potassium 4.6 Chloride 99 Carbon Dioxide 33 H Anion Gap 8 BUN 54 H Creatinine 1.7 H Creat Clearance w eGFR 39.71 POC Glucometer 105.26835 Random Glucose 132 H D Calcium 7.6 L Phosphorus 4.3 Magnesium 2.2 Total Bilirubin 0.4 AST 25 ALT 21 Alkaline Phosphatase 154 H Total Protein 4.1 L Albumin 1.5 L 06/03/17 07:22 WBC RBC Hgb Hct MCV MCH MCHC RDW Plt Count MPV Neutrophils % Lymphocytes % Monocytes % Eosinophils % Basophils % Puncture Site No Result Required. ABG pH 7.48 H ABG pCO2 at Pt Temp 45.5 H ABG pO2 at Pt Temp 120.0 H D ABG HCO3 33.4 H ABG O2 Sat (Measured) 99.2 H ABG O2 Content 11.0 L ABG Base Excess 9.2 H Maulik Test Positive O2 Delivery Device Mech vent Oxygen Flow Rate 40 Vent Mode A/c Vent Rate 14 Mechanical Rate Yes PEEP 5.0 Pressure Support Vent 350 Sodium Potassium Chloride Carbon Dioxide Anion Gap BUN Creatinine Creat Clearance w eGFR POC Glucometer Random Glucose Calcium Phosphorus Magnesium Total Bilirubin AST ALT Alkaline Phosphatase Total Protein Albumin Active Medications Generic Name Dose Route Start Last Admin Trade Name Freq PRN Reason Stop Dose Admin Aspirin 81 mg 05/31/17 10:30 06/01/17 09:09 Asa - NGT 81 mg DAILY PHILL Administration Atorvastatin Calcium 40 mg 05/31/17 22:00 06/02/17 22:33 Lipitor - NGT 40 mg HS PHILL Administration Chlorhexidine Gluconate 1 applic 05/28/17 23:30 06/02/17 22:32 Hibiclens For Decolonization - TP 1 applic HS PHILL Administration Furosemide 40 mg 06/03/17 09:15 06/03/17 09:14 Lasix Injection - IVPUSH 40 mg BID@0600,1400 PHILL Administration Propofol 1,000,000 mcg in 100 mls @ 2.177 mls/hr 05/29/17 00:15 06/03/17 07: 35 Diprivan - IVPB 18.37 mcg/kg/min TITR PHILL 7.999 mls/hr Protocol Administration 5 MCG/KG/MIN Nitroglycerin/Dextrose 25 mg in 250 mls @ 3 mls/hr 05/30/17 09:45 06/02/17 22 :27 Nitroglycerin 25mg/D5w 250ml IVPB Not Given TITR PHILL 5 MCG/MIN CEFTRIAXONE 1 G/50 ML PREMIX 50 mls @ 100 mls/hr 05/31/17 10:00 06/03/17 09: 05 Ceftriaxone 1 Gm-D5w Bag IVPB 100 mls/hr DAILY PHILL Administration Insulin Aspart 1 vial 05/29/17 07:00 06/03/17 06:09 Novolog Vial Sliding Scale - SQ Not Given TIDAC PHILL Protocol Insulin Detemir 8 units 06/02/17 22:00 06/02/17 22:32 Levemir Vial SQ 8 units HS PHILL Administration Levetiracetam 1,000 mg 05/30/17 10:30 06/03/17 09:06 Keppra Injection - IVPB 1,000 mg BID PHILL Administration Pantoprazole Sodium 40 mg 05/28/17 19:00 06/03/17 09:06 Protonix Iv IVPUSH 40 mg DAILY [facility]ILL Administration Valproate Sodium 500 mg 06/01/17 12:00 06/03/17 09:05 Depacon Injection - IVPB 500 mg BID PHILL Administration ASSESSMENT/PLAN: 71yo M, PMHx of HTN, DM, afib, CAD s/p stents, LV systolic dysfunction who became unresponsive on the cab ride to his doctor's office has been intubated and sedated, last failed extubation 05/29. Neuro: Sedated on propofol, off versed, not arousable myoclonic jerks Off versed propofol 8mcg/kg/min Cont nitro drip 5mcg/min-- likely stop tomorrow Continue ivpb Keppra 100mg bid Valproate sodium ivpb bid CT head- showed no acute events EEG Palliative care on board for discussion with family Resp: Acute hypoxic Respiratory failure- Intubated VCV-AC- TV-350, Fio2-40%, RR-14, PEEP -5% Propofol gtt- 15mcg/kg/min Bactoban Mupirocin CXR Cardio/HLD: HTN/CAD, s/p PCI/Afib nitroglycerin gtt- 5mcg/min ASA 81 NGT Lipitor 40NGT HS Off pressors Metab: DM Insulin determir- 10HS Insulin aspart SS / Lytes/ID/Tubes and lines BMP Cr- 1.5- downward trending Zosyn- day 4 Ceftriaxone-1g- day Canales catheter in place RIJ, intubated, NGT,RUE peripheral line Hemonc: H&H-7.8/23.9- CBC GI/Nutrition: NGT feeding Glucerna 1.5 @ 40ml/hr Pantoprazole iv 40mg daily Prophylaxis: pantoprazole iv 40mg daily Social/Dispo: Full code for now- based on Palliative care on board poor prognosis for tracheostomy and continuation of all meds To continue conversations with family Had conversation with son- Rei about prognosis he said he understands but is concerned about the mother. He asked me to call and speak to the sister Violeta. I also spoke on the phone with Violeta who said she understands but knows that the mother is hoping for a miracle. Violeta is going to try to communicate with the mom. The mother was present while I spoke with the son and she kept insisting the patient could hear her and was responding. She said the myoclonic jerks are not new, that he always shakes while in bed for the 50 years she has been to him Raised the possibility of a family meeting and the children are willing to meet with palliative care. Spoke to family again and they want tracheostomy and continuation of medication. Consult put into Dr Lester Flor Visit type - Emergency Visit Emergency Visit: Yes ED Registration Date: 05/28/17 Care time: The patient presented to the Emergency Department on the above date and was hospitalized for further evaluation of their emergent condition. - New Patient This patient is new to me today: No - Critical Care Critical Care patient: Yes Total Critical Care Time (in minutes): 45 Critical Care Statement: The care of this patient involved high complexity decision making to prevent further life threatening deterioration of the patient 's condition and/or to evaluate & treat vital organ system(s) failure or risk of failure. - Discharge Referral Referred to [facility] No
--- NOTE | 2017-06-03 11:51 | PN ---
Teaching Attending Note Name of Resident: Renate Rajan ATTENDING PHYSICIAN STATEMENT I saw and evaluated the patient. I reviewed the resident's note and discussed the case with the resident. I agree with the resident's findings and plan as documented. SUBJECTIVE: Patient seen and examined in the ICU. Remains intubated and sedated. Off levophed. Remains on IV NTG. AC mode of vent. Still with myoclonic jerk activity. Intake & Output 05/31/17 06/01/17 06/02/17 06/03/17 23:59 23:59 23:59 23:59 Intake Total 2064 1301 2219 1222 Output Total 4800 2750 2500 1100 Balance -2736 -1449 -281 122 Weight 205 lb 7.533 oz 200 lb 1.6 oz 200 lb 1.6 oz 196 lb 3.382 oz Last Vital Signs Temp Pulse Resp BP Pulse Ox 99.1 F 76 14 122/57 94 L 06/03/17 10:00 06/03/17 10:10 06/03/17 10:10 06/03/17 10:00 06/03/17 10:10 Active Medications Aspirin (Asa -) 81 mg NGT DAILY [facility] Last Admin: 06/01/17 09:09 Dose: 81 mg Atorvastatin Calcium (Lipitor -) 40 mg NGT HS [facility]ILL Last Admin: 06/02/17 22:33 Dose: 40 mg Chlorhexidine Gluconate (Hibiclens For Decolonization -) 1 applic TP HS PHILL Last Admin: 06/02/17 22:32 Dose: 1 applic Furosemide (Lasix Injection -) 40 mg IVPUSH BID@0600,1400 [facility] Last Admin: 06/03/17 09:14 Dose: 40 mg Propofol (Diprivan -) 1,000,000 mcg in 100 mls @ 2.177 mls/hr IVPB TITR PHILL; 5 MCG/KG/MIN PRN Reason: Protocol Last Admin: 06/03/17 07:35 Dose: 18.37 mcg/kg/min, 7.999 mls/hr Nitroglycerin/Dextrose (Nitroglycerin 25mg/D5w 250ml) 25 mg in 250 mls @ 3 mls/ hr IVPB TITR PHILL PRN Reason: 5 MCG/MIN Last Admin: 06/03/17 09:45 Dose: 5 mcg/min, 3 mls/hr CEFTRIAXONE 1 G/50 ML PREMIX (Ceftriaxone 1 Gm-D5w Bag) 50 mls @ 100 mls/hr IVPB DAILY [facility] Last Admin: 06/03/17 09:05 Dose: 100 mls/hr Insulin Aspart (Novolog Vial Sliding Scale -) 1 vial SQ TIDAC [facility] PRN Reason: Protocol Last Admin: 06/03/17 11:11 Dose: Not Given Insulin Detemir (Levemir Vial) 8 units SQ HS [facility] Last Admin: 06/02/17 22:32 Dose: 8 units Levetiracetam (Keppra Injection -) 1,000 mg IVPB BID [facility] Last Admin: 06/03/17 09:06 Dose: 1,000 mg Pantoprazole Sodium (Protonix Iv) 40 mg IVPUSH DAILY [facility] Last Admin: 06/03/17 09:06 Dose: 40 mg Valproate Sodium (Depacon Injection -) 500 mg IVPB BID [facility] Last Admin: 06/03/17 09:05 Dose: 500 mg Gen: intubated, sedated with occasional jerks Heart: RRR Lung: scattered rhonchi Abd: soft, nontender Ext: + edema Laboratory Results - last 24 hr 06/02/17 06/02/17 06/02/17 05:28 07:03 11:58 WBC RBC Hgb Hct MCV MCH MCHC RDW Plt Count MPV Neutrophils % Lymphocytes % Monocytes % Eosinophils % Basophils % Puncture Site ABG pH ABG pCO2 at Pt Temp ABG pO2 at Pt Temp ABG HCO3 ABG O2 Sat (Measured) ABG O2 Content ABG Base Excess Maulik Test O2 Delivery Device Oxygen Flow Rate Vent Mode Vent Rate Mechanical Rate PEEP Pressure Support Vent Sodium Potassium Chloride Carbon Dioxide Anion Gap BUN Creatinine Creat Clearance w eGFR POC Glucometer 70.19481 83.23391 103.28997 Random Glucose Calcium Phosphorus Magnesium Total Bilirubin AST ALT Alkaline Phosphatase Total Protein Albumin 06/02/17 06/03/17 06/03/17 16:49 05:55 05:55 WBC 4.4 RBC 2.59 L Hgb 7.8 L D Hct 23.9 L MCV 92.4 MCH 30.3 MCHC 32.8 RDW 16.2 H Plt Count 134 MPV 9.9 Neutrophils % 77.6 Lymphocytes % 9.3 Monocytes % 12.1 H Eosinophils % 0.7 Basophils % 0.3 Puncture Site ABG pH ABG pCO2 at Pt Temp ABG pO2 at Pt Temp ABG HCO3 ABG O2 Sat (Measured) ABG O2 Content ABG Base Excess Maulik Test O2 Delivery Device Oxygen Flow Rate Vent Mode Vent Rate Mechanical Rate PEEP Pressure Support Vent Sodium 140 Potassium 4.6 Chloride 99 Carbon Dioxide 33 H Anion Gap 8 BUN 54 H Creatinine 1.7 H Creat Clearance w eGFR 39.71 POC Glucometer 105.34212 Random Glucose 132 H D Calcium 7.6 L Phosphorus 4.3 Magnesium 2.2 Total Bilirubin 0.4 AST 25 ALT 21 Alkaline Phosphatase 154 H Total Protein 4.1 L Albumin 1.5 L 06/03/17 07:22 WBC RBC Hgb Hct MCV MCH MCHC RDW Plt Count MPV Neutrophils % Lymphocytes % Monocytes % Eosinophils % Basophils % Puncture Site No Result Required. ABG pH 7.48 H ABG pCO2 at Pt Temp 45.5 H ABG pO2 at Pt Temp 120.0 H D ABG HCO3 33.4 H ABG O2 Sat (Measured) 99.2 H ABG O2 Content 11.0 L ABG Base Excess 9.2 H Maulik Test Positive O2 Delivery Device Mech vent Oxygen Flow Rate 40 Vent Mode A/c Vent Rate 14 Mechanical Rate Yes PEEP 5.0 Pressure Support Vent 350 Sodium Potassium Chloride Carbon Dioxide Anion Gap BUN Creatinine Creat Clearance w eGFR POC Glucometer Random Glucose Calcium Phosphorus Magnesium Total Bilirubin AST ALT Alkaline Phosphatase Total Protein Albumin Problem List - Problems (1) Acute respiratory failure with hypoxia Code(s): J96.01 - ACUTE RESPIRATORY FAILURE WITH HYPOXIA (2) Cardiac arrest Code(s): I46.9 - CARDIAC ARREST, CAUSE UNSPECIFIED (3) Acute pulmonary edema Code(s): J81.0 - ACUTE PULMONARY EDEMA (4) Acute on chronic systolic heart failure Code(s): I50.23 - ACUTE ON CHRONIC SYSTOLIC (CONGESTIVE) HEART FAILURE (5) Atrial fibrillation Code(s): I48.91 - UNSPECIFIED ATRIAL FIBRILLATION (6) Elevated troponin Code(s): R74.8 - ABNORMAL LEVELS OF OTHER SERUM ENZYMES (7) Hyperkalemia Code(s): E87.5 - HYPERKALEMIA (8) Hypertension Code(s): I10 - ESSENTIAL (PRIMARY) HYPERTENSION (9) Diabetes Code(s): E11.9 - TYPE 2 DIABETES MELLITUS WITHOUT COMPLICATIONS IMP: Acute Hypoxic and Hypercapneic Respiratory Failure s/p PEA Cardiopulmonary Arrest Acute Pulmonary Edema Acute on Chronic Systolic Heart Failure Shock - Likely Cardiogenic Acute RI UTI Acute Kidney Injury Lactic Acidosis Elevated LFTs HTN DM - ABX - Monitor off levophed drip - Normal transfusion thresholds - Lasix - IV NTG per Cardiology - Monitor urine output, creatinine - Lighten sedation in AM to assess mental status - Start spontaneous breathing trials if mental status improved - Enteral feeds - DVT/GI prophylaxis - ICU monitoring - Poor overall prognosis, discuss with family goals of care, advance directives Dr Aguilar Critical care time spent in reviewing chart, evaluating patient and formulating plan 40 min
--- NOTE | 2017-06-03 12:07 | PN ---
Progress Note (short form) - Note Progress Note: Chief Complaint: resp failure, PEA arrest History of Present Illness: intubated/sedated. remains on iv lasix, cxr improving Current Medications Generic Name Dose Route Start Last Admin Trade Name Jones PRN Reason Stop Dose Admin Aspirin 81 mg 05/31/17 10:30 06/01/17 09:09 Asa - NGT 81 mg DAILY PHILL Administration Atorvastatin Calcium 40 mg 05/31/17 22:00 06/02/17 22:33 Lipitor - NGT 40 mg HS PHILL Administration Chlorhexidine Gluconate 1 applic 05/28/17 23:30 06/02/17 22:32 Hibiclens For Decolonization - TP 1 applic HS PHILL Administration Furosemide 40 mg 06/03/17 09:15 06/03/17 09:14 Lasix Injection - IVPUSH 40 mg BID@0600,1400 PHILL Administration Propofol 1,000,000 mcg in 100 mls @ 2.177 mls/hr 05/29/17 00:15 06/03/17 07: 35 Diprivan - IVPB 18.37 mcg/kg/min TITR PHILL 7.999 mls/hr Protocol Administration 5 MCG/KG/MIN Nitroglycerin/Dextrose 25 mg in 250 mls @ 3 mls/hr 05/30/17 09:45 06/03/17 09 :45 Nitroglycerin 25mg/D5w 250ml IVPB 5 mcg/min TITR PHILL 3 mls/hr 5 MCG/MIN Administration CEFTRIAXONE 1 G/50 ML PREMIX 50 mls @ 100 mls/hr 05/31/17 10:00 06/03/17 09: 05 Ceftriaxone 1 Gm-D5w Bag IVPB 100 mls/hr DAILY PHILL Administration Insulin Aspart 1 vial 05/29/17 07:00 06/03/17 11:11 Novolog Vial Sliding Scale - SQ Not Given TIDAC [facility] Protocol Insulin Detemir 8 units 06/02/17 22:00 06/02/17 22:32 Levemir Vial SQ 8 units HS PHILL Administration Levetiracetam 1,000 mg 05/30/17 10:30 06/03/17 09:06 Keppra Injection - IVPB 1,000 mg BID HPILL Administration Pantoprazole Sodium 40 mg 05/28/17 19:00 06/03/17 09:06 Protonix Iv IVPUSH 40 mg DAILY PHILL Administration Valproate Sodium 500 mg 06/01/17 12:00 06/03/17 09:05 Depacon Injection - IVPB 500 mg BID PHILL Administration Vital Signs Temp 99.1 F 06/03/17 10:00 Pulse 76 06/03/17 10:10 Resp 14 06/03/17 10:10 BP 122/57 06/03/17 10:00 Pulse Ox 94 L 06/03/17 10:10 Intake & Output 06/02/17 06/02/17 06/03/17 11:59 23:59 11:59 Intake Total 976 1243 1222 Output Total 600 1900 1100 Balance 376 -657 122 Weight 200 lb 1.6 oz 196 lb 3.382 oz Intake: IV 156 148 132 DIPRIVAN - 1,000,000 mcg 96 98 96 In 100 ml @ 5 MCG/KG/MIN 2.177 mls/hr IVPB TITR PHILL Rx#:[id number] Levophed - 8,000 Mcg In 0 D5w - 492 ml @ 5 MCG/MIN 18.75 mls/hr IV TITR PHILL Rx#:[id number] NITROGLYCERIN 25MG/D5W 36 36 36 250ML 25 mg In 250 ml @ 5 MCG/MIN 3 mls/hr IVPB TITR PHILL Rx#:[id number] Versed - 100 mg In Normal 24 14 0 Saline - 100 ml @ 1 MG/ HR 1 mls/hr IVPB TITR PHILL Rx#:[id number] IVPB 100 275 250 Tube Feeding 480 480 600 Tube Irrigant 240 340 240 Output: Urine 600 1900 1100 Canales 600 1900 1100 Other: Voiding Method Indwelling Catheter Indwelling Catheter Indwelling Catheter Bowel Movement No No Weight Measurement Method Built in [facility] Built in [facility] Constitutional: Yes: Well Nourished, No Distress, Calm, intubated sedated. Cardiovascular: Yes: Regular Rate and Rhythm, S1, S2. No: JVD (very tds exam), Gallop, Murmur Respiratory: Yes: Regular, mechanical breath sounds. No: Accessory Muscle Use, Rales, Wheezes Extremities: No: Cold Edema: diffuse 1+ tense edema. Neurological: sedated Psychiatric: No: Agitated 1+ dp/pt Labs: Laboratory Last Values WBC 4.4 K/mm3 (4.0-10.0) 06/03/17 05:55 RBC 2.59 M/mm3 (4.00-5.60) L 06/03/17 05:55 Hgb 7.8 GM/dL (11.7-16.9) L D 06/03/17 05:55 Hct 23.9 % (35.4-49) L 06/03/17 05:55 MCV 92.4 fl (80-96) 06/03/17 05:55 MCH 30.3 pg (25.7-33.7) 06/03/17 05:55 MCHC 32.8 g/dl (32.0-35.9) 06/03/17 05:55 RDW 16.2 % (11.9-15.9) H 06/03/17 05:55 Plt Count 134 K/MM3 (134-434) 06/03/17 05:55 MPV 9.9 fl (7.5-11.1) 06/03/17 05:55 Absolute Neuts (auto) 9.3 # (42.8-82.8) L D 05/29/17 06:20 Absolute Lymphs (auto) 0.3 (8-40) L 05/29/17 06:20 Absolute Monos (auto) 1.1 # (3.8-10.2) L 05/29/17 06:20 Absolute Eos (auto) 0.0 # (0-4.5) 05/29/17 06:20 Absolute Basos (auto) 0.0 # (0.1-1) L 05/29/17 06:20 Neutrophils % 77.6 % (42.8-82.8) 06/03/17 05:55 Lymphocytes % 9.3 % (8-40) 06/03/17 05:55 Monocytes % 12.1 % (3.8-10.2) H 06/03/17 05:55 Eosinophils % 0.7 % (0-4.5) 06/03/17 05:55 Basophils % 0.3 % (0-2.0) 06/03/17 05:55 PT with INR 15.20 SEC (9.98-11.88) H 05/30/17 05:35 INR 1.35 (0.82-1.09) H 05/30/17 05:35 PTT (Actin FS) 36.1 SECONDS (26.9-34.4) H 05/29/17 06:20 Anticoagulation Therapy Y 05/31/17 07:18 Puncture Site No Result Required. 06/03/17 07:22 ABG pH 7.48 (7.35-7.45) H 06/03/17 07:22 ABG pCO2 at Pt Temp 45.5 mmHg (35-45) H 06/03/17 07:22 ABG pO2 at Pt Temp 120.0 mmHg (70-100) H D 06/03/17 07:22 ABG HCO3 33.4 meq/L (22-26) H 06/03/17 07:22 ABG O2 Sat (Measured) 99.2 % (90-98.9) H 06/03/17 07:22 ABG O2 Content 11.0 % vol (15-22) L 06/03/17 07:22 ABG Base Excess 9.2 meq/l (-2-2) H 06/03/17 07:22 Maulik Test Positive 06/03/17 07:22 VBG pH 7.33 (7.32-7.42) 05/29/17 01:00 POC VBG pCO2 46.7 mmHg (38-52) D 05/29/17 01:00 POC VBG pO2 52.6 mmHg (28-48) H D 05/29/17 01:00 Mixed VBG HCO3 23.8 meq/L (19-25) 05/29/17 01:00 O2 Delivery Device Mech vent 06/03/17 07:22 Oxygen Flow Rate 40 06/03/17 07:22 Vent Mode A/c 06/03/17 07:22 Vent Rate 14 06/03/17 07:22 Mechanical Rate Yes 06/03/17 07:22 PEEP 5.0 cmH2O 06/03/17 07:22 Pressure Support Vent 350 06/03/17 07:22 Sodium 140 mmol/L (136-145) 06/03/17 05:55 Potassium 4.6 mmol/L (3.5-5.1) 06/03/17 05:55 Chloride 99 mmol/L (98-107) 06/03/17 05:55 Carbon Dioxide 33 mmol/L (21-32) H 06/03/17 05:55 Anion Gap 8 (8-16) 06/03/17 05:55 BUN 54 mg/dL (7-18) H 06/03/17 05:55 Creatinine 1.7 mg/dL (0.7-1.3) H 06/03/17 05:55 Creat Clearance w eGFR 39.71 (>60) 06/03/17 05:55 POC Glucometer 105.90670 UNITS (80-120) 06/02/17 16:49 Random Glucose 132 mg/dL (74-106) H D 06/03/17 05:55 Hemoglobin A1c % 9.2 % (4.8-6.0) H D 05/29/17 06:20 Lactic Acid 2.0 mmol/L (0.4-2.0) 05/29/17 14:30 Calcium 7.6 mg/dL (8.5-10.1) L 06/03/17 05:55 Phosphorus 4.3 mg/dL (2.5-4.9) 06/03/17 05:55 Magnesium 2.2 mg/dL (1.8-2.4) 06/03/17 05:55 Total Bilirubin 0.4 mg/dL (0.2-1.0) 06/03/17 05:55 AST 25 U/L (15-37) 06/03/17 05:55 ALT 21 U/L (12-78) 06/03/17 05:55 Alkaline Phosphatase 154 U/L (45-117) H 06/03/17 05:55 Creatine Kinase 62 IU/L (39-308) 05/31/17 05:15 Creatine Kinase Index 6.1 % (0.0-5.0) H* 05/29/17 06:20 CK-MB (CK-2) 14.158 ng/mL (0.5-3.6) H 05/29/17 06:20 Troponin I 0.08 ng/ml (0.00-0.05) H D 05/31/17 05:15 Total Protein 4.1 g/dl (6.4-8.2) L 06/03/17 05:55 Albumin 1.5 g/dl (3.4-5.0) L 06/03/17 05:55 Urine Color Camille 05/28/17 13:40 Urine Appearance Turbid 05/28/17 13:40 Urine pH 5.0 (5.0-8.0) 05/28/17 13:40 Ur Specific [place] 1.013 (1.001-1.035) 05/28/17 13:40 Urine Protein 3+ (NEGATIVE) H 05/28/17 13:40 Urine Glucose (UA) 1+ (NEGATIVE) H 05/28/17 13:40 Urine Ketones Negative (NEGATIVE) 05/28/17 13:40 Urine Blood 2+ (NEGATIVE) H 05/28/17 13:40 Urine Nitrite Negative (NEGATIVE) 05/28/17 13:40 Urine Bilirubin Negative (NEGATIVE) 05/28/17 13:40 Urine Urobilinogen Negative mg/dL (0.2-1.0) 05/28/17 13:40 Ur Leukocyte Esterase 1+ (NEGATIVE) H 05/28/17 13:40 Urine WBC (Auto) 600 /hpf (3-5) 05/28/17 13:40 Urine RBC (Auto) 26 /hpf (0-3) 05/28/17 13:40 Ur Epithelial Cells Rare /HPF (FEW) 05/28/17 13:40 Urine Bacteria Many /hpf (NONE SEEN) 05/28/17 13:40 Urine Mucus Rare 05/28/17 13:40 Opiates Screen Negative ng/ml (LJMOPO=748) 06/02/17 06:00 Methadone Screen Negative ng/ml (DRKHXO=287) 06/02/17 06:00 Barbiturate Screen Negative ng/ml (RWWTQU=407) 06/02/17 06:00 Phencyclidine Screen Negative ng/ml (CUTOFF=25) 06/02/17 06:00 Ur Amphetamines Screen Negative ng/ml (FXYUFX=071) 06/02/17 06:00 MDMA (Ecstasy) Screen Negative ng/ml (CBDCPM=528) 06/02/17 06:00 Benzodiazepines Screen Positive ng/ml (QRQBLV=797) 06/02/17 06:00 Cocaine Screen Negative ng/ml (TRFQAU=281) 06/02/17 06:00 U Marijuana (THC) Screen Negative ng/ml (CUTOFF=50) 06/02/17 06:00 HIV 1&2 Antibody Screen Negative 05/30/17 10:15 HIV P24 Antigen Negative 05/30/17 10:15 Blood Type O POSITIVE 06/01/17 10:15 Antibody Screen Negative 06/01/17 10:15 Crossmatch See Detail 06/01/17 10:15 - ....Imaging EKG: Other (tele: SR) ecg 05/28/17: sr, nl intervals, nonspec tw changes echo 10/2013: nl lv s/f, nl rv s/f, mild mr/tr echo 10/2016: lvef 40, anteroseptal hk, g2dd, nl rv, mild lae, mild-mod mr, mild tr, mod phtn, ivc mildly dilated echo 05/2017: mild lvh, sev dec lvef, global hk, rv mildly dec fcn, mild mr, mild tr cxr: improved congestion est cct 36 mins a/p: 71 m hx dm, hld, syst chf (ICM), cad s/p pci (cath [facility] [place] 08/2014: [place] to [facility]; residual 30-50 dlcx, 80-90 mrca-->staged pci 11/2014 with [place] to mrca) here with resp distress. Acute Hypoxic and Hypercapneic Respiratory Failure, acute on chronic syst chf, PEA arrest, shock (cardiogenic likely) with lactic acidosis: -recvd tPA in ER for ? PE--clinical picture not suggestive of this dx -05/30: CXR showing progressive chf changes, d/c'd IVF, lasix 40 iv x1 given. good UOP (2L) but I > O yesterday -05/31: CXR worse, bun/creat today slightly higher. incr'd lasix today 40 iv BID 05/31 -06/01: 4800 cc UOP yest; CXR improving slightly, bun/creat rising slightly. cont lasix 40 iv bid today. cont nitrates (gtt) for cardiorenal syndrome. dr. grider d/w'd crit care: will cont low dose levophed for now (also ? inotropic properties). holding BB, Entresto here due to hemodynamic instability at the moment. will plan to resume carvedilol (6.25 bid home dose) once better diuresed , sooner if frequent NSVT appears on tele - 06/02-: creatinine stable, cxr improved, continue lasix 40 mg iV bid. monitor bp on nitro drip. . NSTEMI, cad s/p pci: -trop rise and fall pattern here, no isch ecg changes--suspect Type II MA sec to acute chf, though can't exclude small Type I MA (doubt the etiology of acute chf) -defer AC given dx uncertain, and it is now 48 hrs out from the acute event-- low threshold to start heparin if ischemic s/sx ensue -has OGT: start asa, monitor H/H trend, check stool occult blood -cont atorva and nitro drip. -resume b-genaro once better diuresed VTach: -brief NSVT on tele -K/Mag good -home carvedilol on hold given acute chf, (remains intubated)--resume BB later as above -cont tele monitoring elevated lfts: -likely from hypotension -LFTs resolved kandice on CKD: -last creat here 1.3 in 2014; was 1.5 on admit, up to 1.7, now back to 1.5-- i.e. may be close to his recent outpt baseline -suspect some component of hypoperfusion related to acute chf/shock - remains with chf/vol overload--observe cr trend with diuresis -nitrates for cardiorenal syndrome as doing hld: -cont statin DM: -per critical care
[2017-06-03] MEDS: ASPIRIN 81 MG CHEWABLE TABLETS NGT SCH (13:37)
--- NOTE | 2017-06-03 16:19 | CONSULT ---
Consult - text type - Consultation Consultation Note: Thoracic Surgery: Pt seen for possible tracheostomy. S/P arrest. Appears to have myoclonus. Not sure this will benefit patient if prognosis is poor. Will wait and coordinate with ICU team depending on discussions with family.
[2017-06-03] MEDS: CHLORHEXIDINE GLUCONATE 4% CLEANSER FOR DECOLONIZATION TP SCH (22:02)
[2017-06-03] MEDS: INSULIN DETEMIR 100 UNITS/ML MDV SQ SCH (22:04)
[2017-06-03] MEDS: ATORVASTATIN CA 40 MG TABLET (FP) NGT SCH (23:00)
[2017-06-04 06:31] LABS: BASO % 0.2 % (0-2.0); HEMATOCRIT 24.4 % (35.4-49); HEMOGLOBIN 8.1 GM/dL (11.7-16.9); LYMPH % 7.2 % (8-40); MCH 30.5 pg (25.7-33.7); MCHC 33.2 g/dl (32.0-35.9); MEAN CELL VOLUME 91.9 fl (80-96); MEAN PLT VOLUME 10.2 fl (7.5-11.1); MONO % 13.5 % (3.8-10.2); NEUT % 78.1 % (42.8-82.8); PLATELET COUNT 147 K/MM3 (134-434); RBC 2.66 M/mm3 (4.00-5.60); RDW 16.2 % (11.9-15.9); WHITE BLOOD COUNT 5.6 K/mm3 (4.0-10.0)
[2017-06-04] MEDS: FUROSEMIDE 40 MG/4 ML INJECTABLE VIAL IVPUSH SCH ×2 (06:33→13:08)
[2017-06-04] MEDS: INSULIN SLIDING SCALE (NOVOLOG) 1 VIAL SQ SCH ×3 (06:33→16:28)
--- NOTE | 2017-06-04 07:29 | PN ---
Physical Exam: SUBJECTIVE: Patient seen and examined. D/W Rei and yesterday and they decided for tracheostomy tube. Thoracic surgeon saw and notes are acknowledged. Another family meeting to be scheduled since tracheostomy is noted not to be beneficial in light of poor prognosis. This morning myoclonic jerks were very rapid in rate and propofol was increased from 20 to 10. Still on nitro drip. OBJECTIVE: Vital Signs Period Temp Pulse Resp BP Sys/Scruggs Pulse Ox Last 24 Hr 98.5 F-100.9 F 71-84 14-30 117-135/50-75 94-98 Vital Signs Temp 97.7 F 06/04/17 16:00 Pulse 74 06/04/17 16:00 Resp 14 06/04/17 16:00 BP 103/53 06/04/17 16:00 Pulse Ox 100 06/04/17 09:58 Intake & Output 06/03/17 06/04/17 06/04/17 23:59 11:59 23:59 Intake Total 036 026 2420 Output Total 2550 800 1300 Balance -1578 172 -52 Weight 80.286 kg Intake: IV 132 132 158 DIPRIVAN - 1,000,000 mcg 96 96 122 In 100 ml @ 5 MCG/KG/MIN 2.177 mls/hr IVPB TITR PHILL Rx#:[id number] NITROGLYCERIN 25MG/D5W 36 36 36 250ML 25 mg In 250 ml @ 5 MCG/MIN 3 mls/hr IVPB TITR PHILL Rx#:[id number] IVPB 250 Oral 0 Tube Feeding 600 600 600 Tube Irrigant 240 240 240 Output: Urine 2550 800 1300 [place] 2550 800 1300 Other: Voiding Method Indwelling Catheter Indwelling Catheter Bowel Movement No No No Weight Measurement Method Built in [facility] GENERAL: The patient is sedated and intubated, with myoclonic jerks. EYES: Enucleated R eye, slowly reactive L eye, sclera anicteric, conjunctiva clear. ENT: RIJ, intubated, OGT, VCV/AC, TV-350, FiO2-40%, RR-14, PEEP-5 NECK: Trachea midline, full range of motion, supple. LUNGS: Breath sounds equal, clear to auscultation bilaterally, no wheezes, no crackles, no accessory muscle use. HEART: Regular rate and rhythm, S1, S2 without murmur, rub or gallop. ABDOMEN: Soft, nontender, nondistended, normoactive bowel sounds : Canales catheter in place EXTREMITIES: SCDs bilaterally. 2+ pulses, warm NEUROLOGICAL: Sedated, unable to assess, myoclonioc jerks+ PSYCH: Unable to assess Laboratory Results - last 24 hr 06/02/17 06/03/17 06/03/17 22:19 05:51 07:22 WBC RBC Hgb Hct MCV MCH MCHC RDW Plt Count MPV Neutrophils % Lymphocytes % Monocytes % Eosinophils % Basophils % Puncture Site No Result Required. ABG pH 7.48 H ABG pCO2 at Pt Temp 45.5 H ABG pO2 at Pt Temp 120.0 H D ABG HCO3 33.4 H ABG O2 Sat (Measured) 99.2 H ABG O2 Content 11.0 L ABG Base Excess 9.2 H Maulik Test Positive O2 Delivery Device Mech vent Oxygen Flow Rate 40 Vent Mode A/c Vent Rate 14 Mechanical Rate Yes PEEP 5.0 Pressure Support Vent 350 POC Glucometer 149.30709 147.92615 06/03/17 06/03/17 06/04/17 11:08 16:48 05:10 WBC 5.6 RBC 2.66 L Hgb 8.1 L Hct 24.4 L MCV 91.9 MCH 30.5 MCHC 33.2 RDW 16.2 H Plt Count 147 MPV 10.2 Neutrophils % 78.1 Lymphocytes % 7.2 L D Monocytes % 13.5 H Eosinophils % 1.0 Basophils % 0.2 Puncture Site ABG pH ABG pCO2 at Pt Temp ABG pO2 at Pt Temp ABG HCO3 ABG O2 Sat (Measured) ABG O2 Content ABG Base Excess Maulik Test O2 Delivery Device Oxygen Flow Rate Vent Mode Vent Rate Mechanical Rate PEEP Pressure Support Vent POC Glucometer 160.17902 158.54444 06/04/17 05:25 WBC RBC Hgb Hct MCV MCH MCHC RDW Plt Count MPV Neutrophils % Lymphocytes % Monocytes % Eosinophils % Basophils % Puncture Site ABG pH ABG pCO2 at Pt Temp ABG pO2 at Pt Temp ABG HCO3 ABG O2 Sat (Measured) ABG O2 Content ABG Base Excess Maulik Test O2 Delivery Device Oxygen Flow Rate Vent Mode Vent Rate Mechanical Rate PEEP Pressure Support Vent POC Glucometer 179.74651 Active Medications Generic Name Dose Route Start Last Admin Trade Name Jones PRN Reason Stop Dose Admin Aspirin 81 mg 05/31/17 10:30 06/03/17 13:37 Asa - NGT 81 mg DAILY PHILL Administration Atorvastatin Calcium 40 mg 05/31/17 22:00 06/03/17 23:00 Lipitor - NGT 40 mg HS PHILL Administration Chlorhexidine Gluconate 1 applic 05/28/17 23:30 06/03/17 22:02 Hibiclens For Decolonization - TP 1 applic HS PHILL Administration Furosemide 40 mg 06/03/17 09:15 06/04/17 06:33 Lasix Injection - IVPUSH 40 mg BID@0600,1400 PHILL Administration Propofol 1,000,000 mcg in 100 mls @ 2.177 mls/hr 05/29/17 00:15 06/03/17 18: 35 Diprivan - IVPB 18.37 mcg/kg/min TITR PHILL 7.999 mls/hr Protocol Administration 5 MCG/KG/MIN Nitroglycerin/Dextrose 25 mg in 250 mls @ 3 mls/hr 05/30/17 09:45 06/03/17 09 :45 Nitroglycerin 25mg/D5w 250ml IVPB 5 mcg/min TITR PHILL 3 mls/hr 5 MCG/MIN Administration CEFTRIAXONE 1 G/50 ML PREMIX 50 mls @ 100 mls/hr 05/31/17 10:00 06/03/17 09: 05 Ceftriaxone 1 Gm-D5w Bag IVPB 100 mls/hr DAILY PHILL Administration Insulin Aspart 1 vial 05/29/17 07:00 06/04/17 06:33 Novolog Vial Sliding Scale - SQ Not Given TIDAC [facility] Protocol Insulin Detemir 8 units 06/02/17 22:00 06/03/17 22:04 Levemir Vial SQ 8 units HS PHILL Administration Levetiracetam 1,000 mg 05/30/17 10:30 06/03/17 22:01 Keppra Injection - IVPB 1,000 mg BID PHILL Administration Pantoprazole Sodium 40 mg 05/28/17 19:00 06/03/17 09:06 Protonix Iv IVPUSH 40 mg DAILY PHILL Administration Valproate Sodium 500 mg 06/01/17 12:00 06/03/17 22:02 Depacon Injection - IVPB 500 mg BID PHILL Administration ASSESSMENT/PLAN: 71yo M, PMHx of HTN, DM, afib, CAD s/p stents, LV systolic dysfunction who became unresponsive on the cab ride to his doctor's office has been intubated and sedated, last failed extubation 05/29. Neuro: Sedated on propofol myoclonic jerks propofol 30mcg/kg/min Stop nitro drip Continue ivpb Keppra 100mg bid Valproate sodium ivpb bid EEG-per Dr Rivas Resp: Acute hypoxic Respiratory failure- Intubated VCV-AC- TV-350, Fio2-40%, RR-14, PEEP -5% Propofol gtt- 30mcg/kg/min Bactoban Mupirocin CXR Cardio/HLD: HTN/CAD, s/p PCI/Afib stop nitroglycerin ASA 81 NGT Lipitor 40NGT HS Off pressors Metab: DM Insulin determir- 10HS Insulin aspart SS / Lytes/ID/Tubes and lines BMP Cr- 1.7- likely due to reduced intake Ceftriaxone-1g- day [address] RIJ, intubated, NGT,RUE peripheral line Hemonc: H&H-stable- CBC GI/Nutrition: NGT feeding Glucerna 1.5 @ 40ml/hr Pantoprazole iv 40mg daily Prophylaxis: pantoprazole iv 40mg daily Social/Dispo: Full code for now- based on Palliative care on board poor prognosis To continue conversations with family since tracheostomy is not an option at this time Visit type - Emergency Visit Emergency Visit: Yes ED Registration Date: 05/28/17 Care time: The patient presented to the Emergency Department on the above date and was hospitalized for further evaluation of their emergent condition. - New Patient This patient is new to me today: No - Critical Care Critical Care patient: Yes Total Critical Care Time (in minutes): 35 Critical Care Statement: The care of this patient involved high complexity decision making to prevent further life threatening deterioration of the patient 's condition and/or to evaluate & treat vital organ system(s) failure or risk of failure.
[2017-06-04 07:49] LABS: ALBUMIN 1.5 g/dl (3.4-5.0); ANION GAP 5 (8-16); BLOOD UREA NITROGEN 60 mg/dL (7-18); CALCIUM 7.1 mg/dL (8.5-10.1); CHLORIDE 99 mmol/L (98-107); CO2 35 mmol/L (21-32); CREATININE 1.7 mg/dL (0.7-1.3); GLUCOSE,RANDOM 137 mg/dL (74-106); POTASSIUM 4.3 mmol/L (3.5-5.1); SGOT/AST 22 U/L (15-37); SGPT/ALT 18 U/L (12-78); SODIUM 139 mmol/L (136-145)
[2017-06-04 07:52] LABS: ALK PHOS 164 U/L (45-117); BILIRUBIN,TOTAL 0.4 mg/dL (0.2-1.0); TOT PROT 4.2 g/dl (6.4-8.2)
[2017-06-04] MEDS: CEFTRIAXONE 1 G/50 ML PREMIX 50 ML IVPB SCH (09:03)
[2017-06-04] MEDS: VALPROATE SODIUM 500 MG/5 ML VIAL IVPB SCH ×2 (09:03→21:28)
[2017-06-04] MEDS: levETIRAcetam 500 MG/5 ML INJECTION VIAL IVPB SCH ×2 (09:03→21:28)
[2017-06-04] MEDS: PANTOPRAZOLE SODIUM 40 MG VIAL IVPUSH SCH (09:04)
[2017-06-04] MEDS: ASPIRIN 81 MG CHEWABLE TABLETS NGT SCH (09:06)
--- NOTE | 2017-06-04 09:38 | PN ---
Progress Note (short form) - Note Progress Note: pt seen/examined overall condition same having fever Vital Signs Temp 101.9 F H 06/04/17 08:00 Pulse 92 H 06/04/17 08:00 Resp 14 06/04/17 08:00 BP 109/58 06/04/17 08:00 Pulse Ox 100 06/04/17 08:00 Intake & Output 06/03/17 06/03/17 06/04/17 11:59 23:59 11:59 Intake Total 1222 972 972 Output Total 1100 2550 800 Balance 122 -1578 172 Weight 196 lb 3.382 oz 177 lb Intake: IV 132 132 132 DIPRIVAN - 1,000,000 mcg 96 96 96 In 100 ml @ 5 MCG/KG/MIN 2.177 mls/hr IVPB TITR PHILL Rx#:[id number] Levophed - 8,000 Mcg In 0 D5w - 492 ml @ 5 MCG/MIN 18.75 mls/hr IV TITR PHILL Rx#:[id number] NITROGLYCERIN 25MG/D5W 36 36 36 250ML 25 mg In 250 ml @ 5 MCG/MIN 3 mls/hr IVPB TITR PHILL Rx#:[id number] Versed - 100 mg In Normal 0 Saline - 100 ml @ 1 MG/ HR 1 mls/hr IVPB TITR PHILL Rx#:[id number] IVPB 250 Tube Feeding 600 600 600 Tube Irrigant 240 240 240 Output: Urine 1100 2550 800 Oates 1100 2550 800 Other: Voiding Method Indwelling Catheter Indwelling Catheter Indwelling Catheter Bowel Movement No No No Weight Measurement Method Built in [facility] Built in [facility] Active Medications Aspirin (Asa -) 81 mg NGT DAILY [facility] Last Admin: 06/04/17 09:06 Dose: 81 mg Atorvastatin Calcium (Lipitor -) 40 mg NGT HS [facility] Last Admin: 06/03/17 23:00 Dose: 40 mg Chlorhexidine Gluconate (Hibiclens For Decolonization -) 1 applic TP HS [facility] Last Admin: 06/03/17 22:02 Dose: 1 applic Furosemide (Lasix Injection -) 40 mg IVPUSH BID@0600,1400 [facility] Last Admin: 06/04/17 06:33 Dose: 40 mg Propofol (Diprivan -) 1,000,000 mcg in 100 mls @ 2.177 mls/hr IVPB TITR PHILL; 5 MCG/KG/MIN PRN Reason: Protocol Last Titration: 06/04/17 09:05 Dose: 30 mcg/kg/min, 13.064 mls/hr Nitroglycerin/Dextrose (Nitroglycerin 25mg/D5w 250ml) 25 mg in 250 mls @ 3 mls/ hr IVPB TITR PHILL PRN Reason: 5 MCG/MIN Last Admin: 06/03/17 09:45 Dose: 5 mcg/min, 3 mls/hr CEFTRIAXONE 1 G/50 ML PREMIX (Ceftriaxone 1 Gm-D5w Bag) 50 mls @ 100 mls/hr IVPB DAILY [facility] Last Admin: 06/04/17 09:03 Dose: 100 mls/hr Insulin Aspart (Novolog Vial Sliding Scale -) 1 vial SQ TIDAC PHILL PRN Reason: Protocol Last Admin: 06/04/17 06:33 Dose: Not Given Insulin Detemir (Levemir Vial) 8 units SQ HS [facility] Last Admin: 06/03/17 22:04 Dose: 8 units Levetiracetam (Keppra Injection -) 1,000 mg IVPB BID [facility] Last Admin: 06/04/17 09:03 Dose: 1,000 mg Pantoprazole Sodium (Protonix Iv) 40 mg IVPUSH DAILY [facility] Last Admin: 06/04/17 09:04 Dose: 40 mg Valproate Sodium (Depacon Injection -) 500 mg IVPB BID [facility] Last Admin: 06/04/17 09:03 Dose: 500 mg CBC, BMP 06/04/17 05:10 06/04/17 05:10 Physical Examination Constitutional: Yes: Other (intubated/sedated/) Eyes: Yes: Other-- right - enucleated-- left - reactive pupil. HENT: Yes: Other-- no jvd-- orally intubated Neck: Yes: Other-- Cardiovascular: Yes: Regular Rate and Rhythm Respiratory: Yes: Diminished at bases Gastrointestinal: Yes: Soft/ non tender Edema: LLE: 1+, RLE: 1+ Neurological: Yes: Other (sedated) oates + Assessment/Plan s/p cardoac arrest Anoxic encephalopathy- likely CT head--no acute changes EEG Ventilator support Critical team on the case. Monitor blood sugar. Abx transfusion prn palliative care team prognosis poor. discussed with nursing staff will follow Problem List - Problems (1) Cardiac arrest Code(s): I46.9 - CARDIAC ARREST, CAUSE UNSPECIFIED (2) Diabetes Code(s): E11.9 - TYPE 2 DIABETES MELLITUS WITHOUT COMPLICATIONS (3) Elevated troponin Code(s): R74.8 - ABNORMAL LEVELS OF OTHER SERUM ENZYMES (4) Lactic acidosis Code(s): E87.2 - ACIDOSIS (5) CHF (congestive heart failure) Code(s): I50.9 - HEART FAILURE, UNSPECIFIED (6) Anoxic brain damage Code(s): G93.1 - ANOXIC BRAIN DAMAGE, NOT ELSEWHERE CLASSIFIED
[2017-06-04] MEDS: NITROGLYCERIN 25MG/D5W 250ML 25 MG/250 ML ML IVPB SCH (09:45)
--- NOTE | 2017-06-04 12:07 | PN ---
Progress Note (short form) - Note Progress Note: Chief Complaint: resp failure, PEA arrest History of Present Illness: intubated/sedated. remains on iv lasix Current Medications Generic Name Dose Route Start Last Admin Trade Name Jones PRN Reason Stop Dose Admin Aspirin 81 mg 05/31/17 10:30 06/04/17 09:06 Asa - NGT 81 mg DAILY [facility] Administration Atorvastatin Calcium 40 mg 05/31/17 22:00 06/03/17 23:00 Lipitor - NGT 40 mg HS [facility]ILL Administration Chlorhexidine Gluconate 1 applic 05/28/17 23:30 06/03/17 22:02 Hibiclens For Decolonization - TP 1 applic HS [facility] Administration Furosemide 40 mg 06/03/17 09:15 06/04/17 06:33 Lasix Injection - IVPUSH 40 mg BID@0600,1400 [facility] Administration Propofol 1,000,000 mcg in 100 mls @ 2.177 mls/hr 05/29/17 00:15 06/04/17 09: 05 Diprivan - IVPB 30 mcg/kg/min TITR PHILL 13.064 mls/hr Protocol Titration 5 MCG/KG/MIN Nitroglycerin/Dextrose 25 mg in 250 mls @ 3 mls/hr 05/30/17 09:45 06/04/17 09 :45 Nitroglycerin 25mg/D5w 250ml IVPB 5 mcg/min TITR PHILL 3 mls/hr 5 MCG/MIN Administration CEFTRIAXONE 1 G/50 ML PREMIX 50 mls @ 100 mls/hr 05/31/17 10:00 06/04/17 09: 03 Ceftriaxone 1 Gm-D5w Bag IVPB 100 mls/hr DAILY [facility] Administration Insulin Aspart 1 vial 05/29/17 07:00 06/04/17 10:52 Novolog Vial Sliding Scale - SQ Not Given TIDAC [facility] Protocol Insulin Detemir 8 units 06/02/17 22:00 06/03/17 22:04 Levemir Vial SQ 8 units HS PHILL Administration Levetiracetam 1,000 mg 05/30/17 10:30 06/04/17 09:03 Keppra Injection - IVPB 1,000 mg BID PHILL Administration Pantoprazole Sodium 40 mg 05/28/17 19:00 06/04/17 09:04 Protonix Iv IVPUSH 40 mg DAILY PHILL Administration Valproate Sodium 500 mg 06/01/17 12:00 06/04/17 09:03 Depacon Injection - IVPB 500 mg BID PHILL Administration Vital Signs Temp 100.4 F H 06/04/17 10:00 Pulse 81 06/04/17 10:00 Resp 16 06/04/17 10:00 BP 100/49 06/04/17 10:00 Pulse Ox 100 06/04/17 09:58 Intake & Output 06/03/17 06/04/17 06/04/17 23:59 11:59 23:59 Intake Total 972 972 Output Total 2550 800 Balance -1578 172 Weight 177 lb Intake: IV 132 132 DIPRIVAN - 1,000,000 mcg 96 96 In 100 ml @ 5 MCG/KG/MIN 2.177 mls/hr IVPB TITR PHILL Rx#:[id number] NITROGLYCERIN 25MG/D5W 36 36 250ML 25 mg In 250 ml @ 5 MCG/MIN 3 mls/hr IVPB TITR PHILL Rx#:[id number] Tube Feeding 600 600 Tube Irrigant 240 240 Output: Urine 2550 800 [place] 2550 800 Other: Voiding Method Indwelling Catheter Indwelling Catheter Bowel Movement No No Weight Measurement Method Built in [facility] Constitutional: Yes: Well Nourished, No Distress, Calm, intubated sedated. Cardiovascular: Yes: Regular Rate and Rhythm, S1, S2. No: JVD (very tds exam), Gallop, Murmur Respiratory: Yes: Regular, mechanical breath sounds. No: Accessory Muscle Use, Rales, Wheezes Extremities: No: Cold Edema: diffuse 1+ tense edema. Neurological: sedated Psychiatric: No: Agitated 1+ dp/pt Labs: Laboratory Last Values WBC 5.6 K/mm3 (4.0-10.0) 06/04/17 05:10 RBC 2.66 M/mm3 (4.00-5.60) L 06/04/17 05:10 Hgb 8.1 GM/dL (11.7-16.9) L 06/04/17 05:10 Hct 24.4 % (35.4-49) L 06/04/17 05:10 MCV 91.9 fl (80-96) 06/04/17 05:10 MCH 30.5 pg (25.7-33.7) 06/04/17 05:10 MCHC 33.2 g/dl (32.0-35.9) 06/04/17 05:10 RDW 16.2 % (11.9-15.9) H 06/04/17 05:10 Plt Count 147 K/MM3 (134-434) 06/04/17 05:10 MPV 10.2 fl (7.5-11.1) 06/04/17 05:10 Absolute Neuts (auto) 9.3 # (42.8-82.8) L D 05/29/17 06:20 Absolute Lymphs (auto) 0.3 (8-40) L 05/29/17 06:20 Absolute Monos (auto) 1.1 # (3.8-10.2) L 05/29/17 06:20 Absolute Eos (auto) 0.0 # (0-4.5) 05/29/17 06:20 Absolute Basos (auto) 0.0 # (0.1-1) L 05/29/17 06:20 Neutrophils % 78.1 % (42.8-82.8) 06/04/17 05:10 Lymphocytes % 7.2 % (8-40) L D 06/04/17 05:10 Monocytes % 13.5 % (3.8-10.2) H 06/04/17 05:10 Eosinophils % 1.0 % (0-4.5) 06/04/17 05:10 Basophils % 0.2 % (0-2.0) 06/04/17 05:10 PT with INR 15.20 SEC (9.98-11.88) H 05/30/17 05:35 INR 1.35 (0.82-1.09) H 05/30/17 05:35 PTT (Actin FS) 36.1 SECONDS (26.9-34.4) H 05/29/17 06:20 Anticoagulation Therapy Y 05/31/17 07:18 Puncture Site No Result Required. 06/03/17 07:22 ABG pH 7.48 (7.35-7.45) H 06/03/17 07:22 ABG pCO2 at Pt Temp 45.5 mmHg (35-45) H 06/03/17 07:22 ABG pO2 at Pt Temp 120.0 mmHg (70-100) H D 06/03/17 07:22 ABG HCO3 33.4 meq/L (22-26) H 06/03/17 07:22 ABG O2 Sat (Measured) 99.2 % (90-98.9) H 06/03/17 07:22 ABG O2 Content 11.0 % vol (15-22) L 06/03/17 07:22 ABG Base Excess 9.2 meq/l (-2-2) H 06/03/17 07:22 Maulik Test Positive 06/03/17 07:22 VBG pH 7.33 (7.32-7.42) 05/29/17 01:00 POC VBG pCO2 46.7 mmHg (38-52) D 05/29/17 01:00 POC VBG pO2 52.6 mmHg (28-48) H D 05/29/17 01:00 Mixed VBG HCO3 23.8 meq/L (19-25) 05/29/17 01:00 O2 Delivery Device Mech vent 06/03/17 07:22 Oxygen Flow Rate 40 06/03/17 07:22 Vent Mode A/c 06/03/17 07:22 Vent Rate 14 06/03/17 07:22 Mechanical Rate Yes 06/03/17 07:22 PEEP 5.0 cmH2O 06/03/17 07:22 Pressure Support Vent 350 06/03/17 07:22 Sodium 139 mmol/L (136-145) 06/04/17 05:10 Potassium 4.3 mmol/L (3.5-5.1) 06/04/17 05:10 Chloride 99 mmol/L (98-107) 06/04/17 05:10 Carbon Dioxide 35 mmol/L (21-32) H 06/04/17 05:10 Anion Gap 5 (8-16) L 06/04/17 05:10 BUN 60 mg/dL (7-18) H 06/04/17 05:10 Creatinine 1.7 mg/dL (0.7-1.3) H 06/04/17 05:10 Creat Clearance w eGFR 39.71 (>60) 06/04/17 05:10 POC Glucometer 184.01006 UNITS (80-120) 06/04/17 10:49 Random Glucose 137 mg/dL (74-106) H 06/04/17 05:10 Hemoglobin A1c % 9.2 % (4.8-6.0) H D 05/29/17 06:20 Lactic Acid 2.0 mmol/L (0.4-2.0) 05/29/17 14:30 Calcium 7.1 mg/dL (8.5-10.1) L 06/04/17 05:10 Phosphorus 4.3 mg/dL (2.5-4.9) 06/03/17 05:55 Magnesium 2.2 mg/dL (1.8-2.4) 06/03/17 05:55 Total Bilirubin 0.4 mg/dL (0.2-1.0) 06/04/17 05:10 AST 22 U/L (15-37) 06/04/17 05:10 ALT 18 U/L (12-78) 06/04/17 05:10 Alkaline Phosphatase 164 U/L (45-117) H 06/04/17 05:10 Creatine Kinase 62 IU/L (39-308) 05/31/17 05:15 Creatine Kinase Index 6.1 % (0.0-5.0) H* 05/29/17 06:20 CK-MB (CK-2) 14.158 ng/mL (0.5-3.6) H 05/29/17 06:20 Troponin I 0.08 ng/ml (0.00-0.05) H D 05/31/17 05:15 Total Protein 4.2 g/dl (6.4-8.2) L 06/04/17 05:10 Albumin 1.5 g/dl (3.4-5.0) L 06/04/17 05:10 Urine Color Camille 05/28/17 13:40 Urine Appearance Turbid 05/28/17 13:40 Urine pH 5.0 (5.0-8.0) 05/28/17 13:40 Ur Specific [place] 1.013 (1.001-1.035) 05/28/17 13:40 Urine Protein 3+ (NEGATIVE) H 05/28/17 13:40 Urine Glucose (UA) 1+ (NEGATIVE) H 05/28/17 13:40 Urine Ketones Negative (NEGATIVE) 05/28/17 13:40 Urine Blood 2+ (NEGATIVE) H 05/28/17 13:40 Urine Nitrite Negative (NEGATIVE) 05/28/17 13:40 Urine Bilirubin Negative (NEGATIVE) 05/28/17 13:40 Urine Urobilinogen Negative mg/dL (0.2-1.0) 05/28/17 13:40 Ur Leukocyte Esterase 1+ (NEGATIVE) H 05/28/17 13:40 Urine WBC (Auto) 600 /hpf (3-5) 05/28/17 13:40 Urine RBC (Auto) 26 /hpf (0-3) 05/28/17 13:40 Ur Epithelial Cells Rare /HPF (FEW) 05/28/17 13:40 Urine Bacteria Many /hpf (NONE SEEN) 05/28/17 13:40 Urine Mucus Rare 05/28/17 13:40 Opiates Screen Negative ng/ml (FEBMFU=455) 06/02/17 06:00 Methadone Screen Negative ng/ml (KVBEOD=905) 06/02/17 06:00 Barbiturate Screen Negative ng/ml (NZKSSS=255) 06/02/17 06:00 Phencyclidine Screen Negative ng/ml (CUTOFF=25) 06/02/17 06:00 Ur Amphetamines Screen Negative ng/ml (YDBJTL=709) 06/02/17 06:00 MDMA (Ecstasy) Screen Negative ng/ml (ZUFLQL=790) 06/02/17 06:00 Benzodiazepines Screen Positive ng/ml (ZTFMYX=243) 06/02/17 06:00 Cocaine Screen Negative ng/ml (IUWRCJ=645) 06/02/17 06:00 U Marijuana (THC) Screen Negative ng/ml (CUTOFF=50) 06/02/17 06:00 HIV 1&2 Antibody Screen Negative 05/30/17 10:15 HIV P24 Antigen Negative 05/30/17 10:15 Blood Type O POSITIVE 06/01/17 10:15 Antibody Screen Negative 06/01/17 10:15 Crossmatch See Detail 06/01/17 10:15 - ....Imaging EKG: Other (tele: SR) ecg 05/28/17: sr, nl intervals, nonspec tw changes echo 10/2013: nl lv s/f, nl rv s/f, mild mr/tr echo 10/2016: lvef 40, anteroseptal hk, g2dd, nl rv, mild lae, mild-mod mr, mild tr, mod phtn, ivc mildly dilated echo 05/2017: mild lvh, sev dec lvef, global hk, rv mildly dec fcn, mild mr, mild tr cxr reviewed est cct 35 mins a/p: 71 m hx dm, hld, syst chf (ICM), cad s/p pci (cath [facility] [place] 08/2014: [place] to [facility]; residual 30-50 dlcx, 80-90 mrca-->staged pci 11/2014 with [place] to [facility]rca) here with resp distress. Acute Hypoxic and Hypercapneic Respiratory Failure, acute on chronic syst chf, PEA arrest, shock (cardiogenic likely) with lactic acidosis: -recvd tPA in ER for ? PE--clinical picture not suggestive of this dx -05/30: CXR showing progressive chf changes, d/c'd IVF, lasix 40 iv x1 given. good UOP (2L) but I > O yesterday -05/31: CXR worse, bun/creat today slightly higher. incr'd lasix today 40 iv BID 05/31 -06/01: 4800 cc UOP yest; CXR improving slightly, bun/creat rising slightly. cont lasix 40 iv bid today. cont nitrates (gtt) for cardiorenal syndrome. dr. grider d/w'd crit care: will cont low dose levophed for now (also ? inotropic properties). holding BB, Entresto here due to hemodynamic instability at the moment. will plan to resume carvedilol (6.25 bid home dose) once better diuresed , sooner if frequent NSVT appears on tele - 06/02-: creatinine stable, cxr improved, wt down, continue lasix 40 mg iV bid. monitor bp on nitro drip. NSTEMI, cad s/p pci: -trop rise and fall pattern here, no isch ecg changes--suspect Type II PA sec to acute chf, though can't exclude small Type I PA (doubt the etiology of acute chf) -defer AC given dx uncertain, and it is now 48 hrs out from the acute event-- low threshold to start heparin if ischemic s/sx ensue -has OGT: start asa, monitor H/H trend -cont atorva and nitro drip. -resume b-genaro once better diuresed VTach: -brief NSVT on tele -K/Mag good -home carvedilol on hold given acute chf, (remains intubated)--resume BB later as above -cont tele monitoring elevated lfts: -likely from hypotension -LFTs resolved kandice on CKD: -last creat here 1.3 in 2014; was 1.5 on admit, up to 1.7, now back to 1.5-- i.e. may be close to his recent outpt baseline -suspect some component of hypoperfusion related to acute chf/shock - remains with chf/vol overload--observe cr trend with diuresis -nitrates for cardiorenal syndrome as doing hld: -cont statin DM: -per critical care
[2017-06-04] MEDS: PROPOFOL 1,000,000 MCG/100 ML VIAL IVPB SCH (12:30)
--- NOTE | 2017-06-04 12:56 | PN ---
Teaching Attending Note Name of Resident: Renate Rajan ATTENDING PHYSICIAN STATEMENT I saw and evaluated the patient. I reviewed the resident's note and discussed the case with the resident. I agree with the resident's findings and plan as documented. SUBJECTIVE: Patient seen and examined in the ICU. Remains intubated. Off sedation. Remains on IV NTG. AC mode of vent. Still with myoclonic jerk activity. Intake & Output 06/01/17 06/02/17 06/03/17 06/04/17 23:59 23:59 23:59 23:59 Intake Total 1301 2219 2194 1222 Output Total 2750 2500 3650 800 Balance -4596 -281 -1456 422 Weight 200 lb 1.6 oz 200 lb 1.6 oz 196 lb 3.382 oz 177 lb Last Vital Signs Temp Pulse Resp BP Pulse Ox 99.9 F H 81 16 107/51 100 06/04/17 12:00 06/04/17 12:00 06/04/17 12:24 06/04/17 12:00 06/04/17 09:58 Active Medications Aspirin (Asa -) 81 mg NGT DAILY [facility] Last Admin: 06/04/17 09:06 Dose: 81 mg Atorvastatin Calcium (Lipitor -) 40 mg NGT HS [facility] Last Admin: 06/03/17 23:00 Dose: 40 mg Chlorhexidine Gluconate (Hibiclens For Decolonization -) 1 applic TP HS [facility] Last Admin: 06/03/17 22:02 Dose: 1 applic Furosemide (Lasix Injection -) 40 mg IVPUSH BID@0600,1400 [facility] Last Admin: 06/04/17 06:33 Dose: 40 mg Propofol (Diprivan -) 1,000,000 mcg in 100 mls @ 2.177 mls/hr IVPB TITR PHILL; 5 MCG/KG/MIN PRN Reason: Protocol Last Titration: 06/04/17 09:05 Dose: 30 mcg/kg/min, 13.064 mls/hr Nitroglycerin/Dextrose (Nitroglycerin 25mg/D5w 250ml) 25 mg in 250 mls @ 3 mls/ hr IVPB TITR PHILL PRN Reason: 5 MCG/MIN Last Admin: 06/04/17 09:45 Dose: 5 mcg/min, 3 mls/hr CEFTRIAXONE 1 G/50 ML PREMIX (Ceftriaxone 1 Gm-D5w Bag) 50 mls @ 100 mls/hr IVPB DAILY [facility] Last Admin: 06/04/17 09:03 Dose: 100 mls/hr Insulin Aspart (Novolog Vial Sliding Scale -) 1 vial SQ TIDAC [facility] PRN Reason: Protocol Last Admin: 06/04/17 10:52 Dose: Not Given Insulin Detemir (Levemir Vial) 8 units SQ HS [facility] Last Admin: 06/03/17 22:04 Dose: 8 units Levetiracetam (Keppra Injection -) 1,000 mg IVPB BID [facility] Last Admin: 06/04/17 09:03 Dose: 1,000 mg Pantoprazole Sodium (Protonix Iv) 40 mg IVPUSH DAILY [facility] Last Admin: 06/04/17 09:04 Dose: 40 mg Valproate Sodium (Depacon Injection -) 500 mg IVPB BID [facility] Last Admin: 06/04/17 09:03 Dose: 500 mg Gen: intubated, poorly responsive, occasional jerks Heart: RRR Lung: scattered rhonchi Abd: soft, nontender Ext: + edema Laboratory Results - last 24 hr 06/02/17 06/03/17 06/03/17 22:19 05:51 11:08 WBC RBC Hgb Hct MCV MCH MCHC RDW Plt Count MPV Neutrophils % Lymphocytes % Monocytes % Eosinophils % Basophils % Sodium Potassium Chloride Carbon Dioxide Anion Gap BUN Creatinine Creat Clearance w eGFR POC Glucometer 149.01762 147.43664 160.89580 Random Glucose Calcium Total Bilirubin AST ALT Alkaline Phosphatase Total Protein Albumin 06/03/17 06/04/17 06/04/17 16:48 05:10 05:10 WBC 5.6 RBC 2.66 L Hgb 8.1 L Hct 24.4 L MCV 91.9 MCH 30.5 MCHC 33.2 RDW 16.2 H Plt Count 147 MPV 10.2 Neutrophils % 78.1 Lymphocytes % 7.2 L D Monocytes % 13.5 H Eosinophils % 1.0 Basophils % 0.2 Sodium 139 Potassium 4.3 Chloride 99 Carbon Dioxide 35 H Anion Gap 5 L BUN 60 H Creatinine 1.7 H Creat Clearance w eGFR 39.71 POC Glucometer 158.94093 Random Glucose 137 H Calcium 7.1 L Total Bilirubin 0.4 AST 22 ALT 18 Alkaline Phosphatase 164 H Total Protein 4.2 L Albumin 1.5 L 06/04/17 06/04/17 05:25 10:49 WBC RBC Hgb Hct MCV MCH MCHC RDW Plt Count MPV Neutrophils % Lymphocytes % Monocytes % Eosinophils % Basophils % Sodium Potassium Chloride Carbon Dioxide Anion Gap BUN Creatinine Creat Clearance w eGFR POC Glucometer 179.76019 184.20553 Random Glucose Calcium Total Bilirubin AST ALT Alkaline Phosphatase Total Protein Albumin - Problems (1) Acute respiratory failure with hypoxia Code(s): J96.01 - ACUTE RESPIRATORY FAILURE WITH HYPOXIA (2) Cardiac arrest Code(s): I46.9 - CARDIAC ARREST, CAUSE UNSPECIFIED (3) Acute pulmonary edema Code(s): J81.0 - ACUTE PULMONARY EDEMA (4) Acute on chronic systolic heart failure Code(s): I50.23 - ACUTE ON CHRONIC SYSTOLIC (CONGESTIVE) HEART FAILURE (5) Atrial fibrillation Code(s): I48.91 - UNSPECIFIED ATRIAL FIBRILLATION (6) Elevated troponin Code(s): R74.8 - ABNORMAL LEVELS OF OTHER SERUM ENZYMES (7) Hyperkalemia Code(s): E87.5 - HYPERKALEMIA (8) Hypertension Code(s): I10 - ESSENTIAL (PRIMARY) HYPERTENSION (9) Diabetes Code(s): E11.9 - TYPE 2 DIABETES MELLITUS WITHOUT COMPLICATIONS IMP: Acute Hypoxic and Hypercapneic Respiratory Failure s/p PEA Cardiopulmonary Arrest Acute Pulmonary Edema Acute on Chronic Systolic Heart Failure Shock - Likely Cardiogenic Acute NV UTI Acute Kidney Injury Lactic Acidosis Elevated LFTs HTN DM - ABX - Monitor off levophed drip - Normal transfusion thresholds - Lasix - IV NTG per Cardiology - Monitor urine output, creatinine - D/C sedation in AM to assess mental status - Start spontaneous breathing trials if mental status improved - Enteral feeds - DVT/GI prophylaxis - ICU monitoring - Poor overall prognosis, discuss with family goals of care, advance directives , ideally should have compassionate extubation Dr Aguilar Critical care time spent in reviewing chart, evaluating patient and formulating plan 40 min
--- NOTE | 2017-06-04 13:10 | PN ---
Progress Note (short form) - Note Progress Note: 71 Year old male, Hx of A-fib,DM,HTN,CAD,CHF become unreponsive and later found to have PEA. He was resucitated in ED with three rounds of Epi and was given tpa Bolus. He is off sedation and on mild sedation, no reponse to verbal stimuli ct scan showed no acute findings Neurological Examination He is on mild sedation. no response to verbal stimuli and to painful stimuli he began to have myoclonic jerks Right eye -enucleated, left pupil is reactive( very sluggish) gag reflex is present, corneal reflex is positive in left eye CT head reviewed Assessment- Anoxic Ischemic Brain injury, on mild sedation. He continue to have myoclonic jerks, though has improved since yesterday. CT unremarkable. Presence of Myoclonic jerks is poor prognostic sign, Over all prognosis is guarded at this time. Plan- continue keppra and dpakote - a routine eeg can be done - continue supportive treatment Thanking you so much Marcus Rivas MD
[2017-06-04] MEDS: ATORVASTATIN CA 40 MG TABLET (FP) NGT SCH (21:28)
[2017-06-04] MEDS: INSULIN DETEMIR 100 UNITS/ML MDV SQ SCH (21:29)
[2017-06-04] MEDS: CHLORHEXIDINE GLUCONATE 4% CLEANSER FOR DECOLONIZATION TP SCH (21:31)
[2017-06-05 06:06] LABS: BASO % 0.4 % (0-2.0); EOS % 1.8 % (0-4.5); HEMATOCRIT 27.8 % (35.4-49); HEMOGLOBIN 9.2 GM/dL (11.7-16.9); LYMPH % 7.8 % (8-40); MCH 30.6 pg (25.7-33.7); MCHC 33.1 g/dl (32.0-35.9); MEAN CELL VOLUME 92.6 fl (80-96); MEAN PLT VOLUME 10.2 fl (7.5-11.1); MONO % 10.5 % (3.8-10.2); NEUT % 79.5 % (42.8-82.8); PLATELET COUNT 183 K/MM3 (134-434); RDW 15.9 % (11.9-15.9); WHITE BLOOD COUNT 6.5 K/mm3 (4.0-10.0)
[2017-06-05] MEDS: FUROSEMIDE 40 MG/4 ML INJECTABLE VIAL IVPUSH SCH ×2 (06:08→13:23)
[2017-06-05] MEDS: INSULIN SLIDING SCALE (NOVOLOG) 1 VIAL SQ SCH ×3 (06:08→18:25)
[2017-06-05 06:43] LABS: ALBUMIN 1.6 g/dl (3.4-5.0); ANION GAP 10 (8-16); BILIRUBIN,TOTAL 0.4 mg/dL (0.2-1.0); BLOOD UREA NITROGEN 64 mg/dL (7-18); CHLORIDE 98 mmol/L (98-107); CO2 34 mmol/L (21-32); CREATININE 1.6 mg/dL (0.7-1.3); GLUCOSE,RANDOM 122 mg/dL (74-106); MAGNESIUM 2.4 mg/dL (1.8-2.4); PHOSPHOROUS 4.1 mg/dL (2.5-4.9); POTASSIUM 4.2 mmol/L (3.5-5.1); SGOT/AST 27 U/L (15-37); SGPT/ALT 18 U/L (12-78); SODIUM 142 mmol/L (136-145)
[2017-06-05 06:45] LABS: ALK PHOS 208 U/L (45-117); TOT PROT 4.7 g/dl (6.4-8.2)
--- NOTE | 2017-06-05 09:53 | PN ---
Progress Note (short form) - Note Progress Note: patient seen and examined Overall condition same Continuing to have myoclonic movements Off pressors Vital Signs Temp 99.4 F 06/05/17 06:00 Pulse 78 06/05/17 08:00 Resp 21 06/05/17 08:00 BP 131/66 06/05/17 08:00 Pulse Ox 100 06/05/17 08:00 Intake & Output 06/04/17 06/04/17 06/05/17 11:59 23:59 11:59 Intake Total 972 1248 948 Output Total 800 2200 500 Balance 172 -952 448 Weight 177 lb 178 lb 9.191 oz Intake: IV 132 158 108 DIPRIVAN - 1,000,000 mcg 96 122 108 In 100 ml @ 5 MCG/KG/MIN 2.177 mls/hr IVPB TITR PHILL Rx#:[id number] NITROGLYCERIN 25MG/D5W 36 36 250ML 25 mg In 250 ml @ 5 MCG/MIN 3 mls/hr IVPB TITR PHILL Rx#:[id number] IVPB 250 Oral 0 Tube Feeding 600 600 600 Tube Irrigant 240 240 240 Output: Urine 800 2200 500 [place] 800 2200 500 Other: Voiding Method Indwelling Catheter Indwelling Catheter Indwelling Catheter Bowel Movement No Yes Yes # Bowel Movements 1 Weight Measurement Method [facility] Active Medications Aspirin (Asa -) 81 mg NGT DAILY [facility] Last Admin: 06/04/17 09:06 Dose: 81 mg Atorvastatin Calcium (Lipitor -) 40 mg NGT HS [facility] Last Admin: 06/04/17 21:28 Dose: 40 mg Chlorhexidine Gluconate (Hibiclens For Decolonization -) 1 applic TP [facility] Last Admin: 06/04/17 21:31 Dose: 1 applic Furosemide (Lasix Injection -) 40 mg IVPUSH BID@0600,1400 [facility] Last Admin: 06/05/17 06:08 Dose: 40 mg Propofol (Diprivan -) 1,000,000 mcg in 100 mls @ 2.177 mls/hr IVPB TITR PHILL; 5 MCG/KG/MIN PRN Reason: Protocol Last Titration: 06/04/17 13:00 Dose: 25 mcg/kg/min, 10.886 mls/hr CEFTRIAXONE 1 G/50 ML PREMIX (Ceftriaxone 1 Gm-D5w Bag) 50 mls @ 100 mls/hr IVPB DAILY [facility] Last Admin: 06/04/17 09:03 Dose: 100 mls/hr Insulin Aspart (Novolog Vial Sliding Scale -) 1 vial SQ TIDAC [facility] PRN Reason: Protocol Last Admin: 06/05/17 06:08 Dose: Not Given Insulin Detemir (Levemir Vial) 8 units SQ HS [facility] Last Admin: 06/04/17 21:29 Dose: 8 units Levetiracetam (Keppra Injection -) 1,000 mg IVPB BID [facility] Last Admin: 06/04/17 21:28 Dose: 1,000 mg Pantoprazole Sodium (Protonix Iv) 40 mg IVPUSH DAILY [facility] Last Admin: 06/04/17 09:04 Dose: 40 mg Valproate Sodium (Depacon Injection -) 500 mg IVPB BID [facility] Last Admin: 06/04/17 21:28 Dose: 500 mg CBC, BMP 06/05/17 05:30 06/05/17 05:30 Physical Examination Constitutional: Yes: Other (intubated/sedated/) Eyes: Yes: Other-- right - enucleated-- left - reactive pupil. HENT: Yes: Other-- no jvd-- orally intubated Neck: Yes: Other-- Cardiovascular: Yes: Regular Rate and Rhythm Respiratory: Yes: Diminished at bases Gastrointestinal: Yes: Soft/ non tender Edema: LLE: 1+, RLE: 1+ Neurological: Yes: Other (sedated) oates + Assessment/Plan s/p cardiac arrest Anoxic encephalopathy- CT head--no acute changes EEG Ventilator support Critical team on the case. Monitor blood sugar. Abx transfusion prn palliative care team prognosis poor. discussed with nursing staff Problem List - Problems (1) Cardiac arrest Code(s): I46.9 - CARDIAC ARREST, CAUSE UNSPECIFIED (2) Diabetes Code(s): E11.9 - TYPE 2 DIABETES MELLITUS WITHOUT COMPLICATIONS (3) Elevated troponin Code(s): R74.8 - ABNORMAL LEVELS OF OTHER SERUM ENZYMES (4) Lactic acidosis Code(s): E87.2 - ACIDOSIS (5) CHF (congestive heart failure) Code(s): I50.9 - HEART FAILURE, UNSPECIFIED (6) Anoxic brain damage Code(s): G93.1 - ANOXIC BRAIN DAMAGE, NOT ELSEWHERE CLASSIFIED
[2017-06-05] MEDS: CEFTRIAXONE 1 G/50 ML PREMIX 50 ML IVPB SCH (10:08)
[2017-06-05] MEDS: ASPIRIN 81 MG CHEWABLE TABLETS NGT SCH (10:09)
[2017-06-05] MEDS: PANTOPRAZOLE SODIUM 40 MG VIAL IVPUSH SCH (10:10)
[2017-06-05] MEDS: levETIRAcetam 500 MG/5 ML INJECTION VIAL IVPB SCH ×2 (10:42→21:46)
[2017-06-05] MEDS: VALPROATE SODIUM 500 MG/5 ML VIAL IVPB SCH ×2 (10:45→21:47)
--- NOTE | 2017-06-05 10:55 | PN ---
Teaching Attending Note Name of Resident: Renate Rajan ATTENDING PHYSICIAN STATEMENT I saw and evaluated the patient. I reviewed the resident's note and discussed the case with the resident. I agree with the resident's findings and plan as documented. SUBJECTIVE: Patient seen and examined in the ICU. Remains intubated. Low dose propofol. AC mode of vent. Still with some myoclonic jerk activity. Intake & Output 06/02/17 06/03/17 06/04/17 06/05/17 23:59 23:59 23:59 23:59 Intake Total 2219 2194 2220 948 Output Total 2500 3650 3000 500 Balance -281 -1456 -780 448 Weight 200 lb 1.6 oz 196 lb 3.382 oz 177 lb 178 lb 9.191 oz Last Vital Signs Temp Pulse Resp BP Pulse Ox 99.1 F 84 14 128/62 99 06/05/17 10:00 06/05/17 10:00 06/05/17 10:00 06/05/17 10:00 06/05/17 09:40 Active Medications Aspirin (Asa -) 81 mg NGT DAILY [facility] Last Admin: 06/05/17 10:09 Dose: 81 mg Atorvastatin Calcium (Lipitor -) 40 mg NGT HS [facility] Last Admin: 06/04/17 21:28 Dose: 40 mg Chlorhexidine Gluconate (Hibiclens For Decolonization -) 1 applic TP HS [facility] Last Admin: 06/04/17 21:31 Dose: 1 applic Furosemide (Lasix Injection -) 40 mg IVPUSH BID@0600,1400 [facility] Last Admin: 06/05/17 06:08 Dose: 40 mg Propofol (Diprivan -) 1,000,000 mcg in 100 mls @ 2.177 mls/hr IVPB TITR [facility]; 5 MCG/KG/MIN PRN Reason: Protocol Last Titration: 06/04/17 13:00 Dose: 25 mcg/kg/min, 10.886 mls/hr CEFTRIAXONE 1 G/50 ML PREMIX (Ceftriaxone 1 Gm-D5w Bag) 50 mls @ 100 mls/hr IVPB DAILY [facility] Last Admin: 06/05/17 10:08 Dose: 100 mls/hr Insulin Aspart (Novolog Vial Sliding Scale -) 1 vial SQ TIDAC [facility] PRN Reason: Protocol Last Admin: 06/05/17 06:08 Dose: Not Given Insulin Detemir (Levemir Vial) 8 units SQ HS [facility] Last Admin: 06/04/17 21:29 Dose: 8 units Levetiracetam (Keppra Injection -) 1,000 mg IVPB BID [facility] Last Admin: 06/05/17 10:42 Dose: 1,000 mg Pantoprazole Sodium (Protonix Iv) 40 mg IVPUSH DAILY [facility] Last Admin: 06/05/17 10:10 Dose: 40 mg Valproate Sodium (Depacon Injection -) 500 mg IVPB BID [facility] Last Admin: 06/05/17 10:45 Dose: 500 mg Gen: intubated, poorly responsive, occasional jerks Heart: RRR Lung: scattered rhonchi Abd: soft, nontender Ext: + edema Laboratory Results - last 24 hr 06/01/17 06/04/17 06/04/17 10:15 10:49 16:12 WBC RBC Hgb Hct MCV MCH MCHC RDW Plt Count MPV Neutrophils % Lymphocytes % Monocytes % Eosinophils % Basophils % Sodium Potassium Chloride Carbon Dioxide Anion Gap BUN Creatinine Creat Clearance w eGFR POC Glucometer 184.63153 189.91597 Random Glucose Calcium Phosphorus Magnesium Total Bilirubin AST ALT Alkaline Phosphatase Total Protein Albumin Stool Occult Blood Blood Type O POSITIVE Antibody Screen Negative Crossmatch See Detail 06/04/17 06/05/17 06/05/17 18:30 05:30 05:30 WBC 6.5 RBC 3.00 L Hgb 9.2 L D Hct 27.8 L MCV 92.6 MCH 30.6 MCHC 33.1 RDW 15.9 Plt Count 183 D MPV 10.2 Neutrophils % 79.5 Lymphocytes % 7.8 L Monocytes % 10.5 H Eosinophils % 1.8 Basophils % 0.4 Sodium 142 Potassium 4.2 Chloride 98 Carbon Dioxide 34 H Anion Gap 10 BUN 64 H Creatinine 1.6 H Creat Clearance w eGFR 42.58 POC Glucometer Random Glucose 122 H Calcium 8.0 L Phosphorus 4.1 Magnesium 2.4 Total Bilirubin 0.4 AST 27 D ALT 18 Alkaline Phosphatase 208 H D Total Protein 4.7 L Albumin 1.6 L Stool Occult Blood Negative Blood Type Antibody Screen Crossmatch - Problems (1) Acute respiratory failure with hypoxia Code(s): J96.01 - ACUTE RESPIRATORY FAILURE WITH HYPOXIA (2) Cardiac arrest Code(s): I46.9 - CARDIAC ARREST, CAUSE UNSPECIFIED (3) Acute pulmonary edema Code(s): J81.0 - ACUTE PULMONARY EDEMA (4) Acute on chronic systolic heart failure Code(s): I50.23 - ACUTE ON CHRONIC SYSTOLIC (CONGESTIVE) HEART FAILURE (5) Atrial fibrillation Code(s): I48.91 - UNSPECIFIED ATRIAL FIBRILLATION (6) Elevated troponin Code(s): R74.8 - ABNORMAL LEVELS OF OTHER SERUM ENZYMES (7) Hyperkalemia Code(s): E87.5 - HYPERKALEMIA (8) Hypertension Code(s): I10 - ESSENTIAL (PRIMARY) HYPERTENSION (9) Diabetes Code(s): E11.9 - TYPE 2 DIABETES MELLITUS WITHOUT COMPLICATIONS IMP: Acute Hypoxic and Hypercapneic Respiratory Failure s/p PEA Cardiopulmonary Arrest Acute Pulmonary Edema Acute on Chronic Systolic Heart Failure Shock - Likely Cardiogenic Acute [place] UTI Acute Kidney Injury Lactic Acidosis Elevated LFTs HTN DM - ABX - Monitor off levophed drip - Normal transfusion thresholds - Lasix - Monitor urine output, creatinine - D/C sedation to assess mental status - Start spontaneous breathing trials if mental status improved - Enteral feeds - DVT/GI prophylaxis - ICU monitoring - Poor overall prognosis, discuss with family goals of care, advance directives , ideally should have compassionate extubation Dr Aguilar Critical care time spent in reviewing chart, evaluating patient and formulating plan 40 min
--- NOTE | 2017-06-05 11:05 | PN ---
Physical Exam: SUBJECTIVE: Patient seen and examined. Family was not at bedside or available to discuss lack of benefit of tracheostomy tube yesterday. Spoke with the still wanted full code for the patient. OBJECTIVE: Vital Signs Period Temp Pulse Resp BP Sys/Scruggs Pulse Ox Last 24 Hr 98.9 F-99.9 F 70-98 14-27 103-131/51-66 99-100 Vital Signs Temp 99.2 F 06/05/17 14:00 Pulse 107 H 06/05/17 16:00 Resp 15 06/05/17 16:00 BP 135/57 06/05/17 16:00 Pulse Ox 99 06/05/17 09:40 Intake & Output 06/04/17 06/05/17 06/05/17 23:59 11:59 23:59 Intake Total 1248 948 Output Total 2200 500 1350 Balance -952 448 -1350 Weight 81 kg Intake: IV 158 108 DIPRIVAN - 1,000,000 mcg 122 108 In 100 ml @ 5 MCG/KG/MIN 2.177 mls/hr IVPB TITR [facility] Rx#:[id number] NITROGLYCERIN 25MG/D5W 36 250ML 25 mg In 250 ml @ 5 MCG/MIN 3 mls/hr IVPB TITR PHILL Rx#:[id number] IVPB 250 Oral 0 Tube Feeding 600 600 Tube Irrigant 240 240 Output: Urine 2200 500 1350 [place] 2200 500 1350 Other: Voiding Method Indwelling Catheter Indwelling Catheter Bowel Movement Yes Yes # Bowel Movements 1 Weight Measurement Method Built in [facility] GENERAL: The patient is sedated and intubated, with myoclonic jerks, no response to verbal or painful stimulus. EYES: Enucleated R eye, slowly reactive L eye, sclera anicteric, conjunctiva clear. ENT: RIJ, intubated, OGT, VCV/AC, TV-350, FiO2-40%, RR-14, PEEP-5 LUNGS: bilateral rhonchi. HEART: Regular rate and rhythm, S1, S2 without murmur, rub or gallop. ABDOMEN: Soft, nontender, nondistended, normoactive bowel sounds : Canales catheter in place EXTREMITIES: SCDs bilaterally. 2+ pulses, warm, no edema NEUROLOGICAL: generalized myoclonic jerks+, Sedated PSYCH: Unable to assess CBC, BMP 06/05/17 05:30 06/05/17 05:30 Laboratory Results - last 24 hr 06/01/17 06/04/17 06/04/17 10:15 10:49 16:12 WBC RBC Hgb Hct MCV MCH MCHC RDW Plt Count MPV Neutrophils % Lymphocytes % Monocytes % Eosinophils % Basophils % Sodium Potassium Chloride Carbon Dioxide Anion Gap BUN Creatinine Creat Clearance w eGFR POC Glucometer 184.66166 189.34913 Random Glucose Calcium Phosphorus Magnesium Total Bilirubin AST ALT Alkaline Phosphatase Total Protein Albumin Stool Occult Blood Blood Type O POSITIVE Antibody Screen Negative Crossmatch See Detail 06/04/17 06/05/17 06/05/17 18:30 05:30 05:30 WBC 6.5 RBC 3.00 L Hgb 9.2 L D Hct 27.8 L MCV 92.6 MCH 30.6 MCHC 33.1 RDW 15.9 Plt Count 183 D MPV 10.2 Neutrophils % 79.5 Lymphocytes % 7.8 L Monocytes % 10.5 H Eosinophils % 1.8 Basophils % 0.4 Sodium 142 Potassium 4.2 Chloride 98 Carbon Dioxide 34 H Anion Gap 10 BUN 64 H Creatinine 1.6 H Creat Clearance w eGFR 42.58 POC Glucometer Random Glucose 122 H Calcium 8.0 L Phosphorus 4.1 Magnesium 2.4 Total Bilirubin 0.4 AST 27 D ALT 18 Alkaline Phosphatase 208 H D Total Protein 4.7 L Albumin 1.6 L Stool Occult Blood Negative Blood Type Antibody Screen Crossmatch Active Medications Generic Name Dose Route Start Last Admin Trade Name Leeq PRN Reason Stop Dose Admin Aspirin 81 mg 05/31/17 10:30 06/05/17 10:09 Asa - NGT 81 mg DAILY [facility] Administration Atorvastatin Calcium 40 mg 05/31/17 22:00 06/04/17 21:28 Lipitor - NGT 40 mg HS [facility] Administration Chlorhexidine Gluconate 1 applic 05/28/17 23:30 06/04/17 21:31 Hibiclens For Decolonization - TP 1 applic HS [facility] Administration Furosemide 40 mg 06/03/17 09:15 06/05/17 06:08 Lasix Injection - IVPUSH 40 mg BID@0600,1400 [facility] Administration Propofol 1,000,000 mcg in 100 mls @ 2.177 mls/hr 05/29/17 00:15 06/04/17 13: 00 Diprivan - IVPB 25 mcg/kg/min TITR [facility] 10.886 mls/hr Protocol Titration 5 MCG/KG/MIN CEFTRIAXONE 1 G/50 ML PREMIX 50 mls @ 100 mls/hr 05/31/17 10:00 06/05/17 10: 08 Ceftriaxone 1 Gm-D5w Bag IVPB 100 mls/hr DAILY [facility] Administration Insulin Aspart 1 vial 05/29/17 07:00 06/05/17 06:08 Novolog Vial Sliding Scale - SQ Not Given TIDAC [facility] Protocol Insulin Detemir 8 units 06/02/17 22:00 06/04/17 21:29 Levemir Vial SQ 8 units HS [facility] Administration Levetiracetam 1,000 mg 05/30/17 10:30 06/05/17 10:42 Keppra Injection - IVPB 1,000 mg BID [facility] Administration Pantoprazole Sodium 40 mg 05/28/17 19:00 06/05/17 10:10 Protonix Iv IVPUSH 40 mg DAILY [facility] Administration Valproate Sodium 500 mg 06/01/17 12:00 06/05/17 10:45 Depacon Injection - IVPB 500 mg BID [facility] Administration ASSESSMENT/PLAN: 71yo M, PMHx of HTN, DM, afib, CAD s/p stents, LV systolic dysfunction who became unresponsive on the cab ride to his doctor's office has been intubated and sedated, last failed extubation 05/29. Neuro: D/C propofol myoclonic jerks nitro drip stopped Continue ivpb Keppra 100mg bid Valproate sodium ivpb bid Resp: Acute hypoxic Respiratory failure- Intubated VCV-AC- TV-350, Fio2-40%, RR-14, PEEP -5% Bactoban Mupirocin CXR Cardio/HLD: HTN/CAD, s/p PCI/Afib Lasix 40mg IVpush bid ASA 81 NGT Lipitor 40NGT HS Off pressors Metab: DM Insulin determir- 8HS Insulin aspart SS / Lytes/ID/Tubes and lines CMP Cr- 1.6 Ceftriaxone-1g- day [address] RIJ, intubated, NGT,RUE peripheral line Hemonc: H&H-stable- CBC GI/Nutrition: NGT feeding Glucerna 1.5 @ 40ml/hr Pantoprazole iv 40mg daily Prophylaxis: pantoprazole iv 40mg daily Social/Dispo: Full code for now- spoke with Palliative care on board for family meeting today poor prognosis Visit type - Emergency Visit Emergency Visit: Yes ED Registration Date: 05/28/17 Care time: The patient presented to the Emergency Department on the above date and was hospitalized for further evaluation of their emergent condition. - New Patient This patient is new to me today: No - Critical Care Critical Care patient: Yes Total Critical Care Time (in minutes): 40 Critical Care Statement: The care of this patient involved high complexity decision making to prevent further life threatening deterioration of the patient 's condition and/or to evaluate & treat vital organ system(s) failure or risk of failure. - Discharge Referral Referred to [facility] Med P.C.: No
--- NOTE | 2017-06-05 16:57 | PN ---
Progress Note (short form) - Note Progress Note: Chief Complaint: resp failure, PEA arrest History of Present Illness: intubated/sedated. remains on iv lasix. nitro drip stopped yesterday. ongoing goc discussions. Current Medications Aspirin (Asa -) 81 mg NGT DAILY [facility] Last Admin: 06/05/17 10:09 Dose: 81 mg Atorvastatin Calcium (Lipitor -) 40 mg NGT HS [facility] Last Admin: 06/04/17 21:28 Dose: 40 mg Chlorhexidine Gluconate (Hibiclens For Decolonization -) 1 applic TP HS [facility] Last Admin: 06/04/17 21:31 Dose: 1 applic Furosemide (Lasix Injection -) 40 mg IVPUSH BID@0600,1400 [facility] Last Admin: 06/05/17 13:23 Dose: 40 mg CEFTRIAXONE 1 G/50 ML PREMIX (Ceftriaxone 1 Gm-D5w Bag) 50 mls @ 100 mls/hr IVPB DAILY [facility] Last Admin: 06/05/17 10:08 Dose: 100 mls/hr Insulin Aspart (Novolog Vial Sliding Scale -) 1 vial SQ TIDAC [facility] PRN Reason: Protocol Last Admin: 06/05/17 13:23 Dose: Not Given Insulin Detemir (Levemir Vial) 8 units SQ [facility] Last Admin: 06/04/17 21:29 Dose: 8 units Levetiracetam (Keppra Injection -) 1,000 mg IVPB BID [facility] Last Admin: 06/05/17 10:42 Dose: 1,000 mg Pantoprazole Sodium (Protonix Iv) 40 mg IVPUSH DAILY [facility] Last Admin: 06/05/17 10:10 Dose: 40 mg Valproate Sodium (Depacon Injection -) 500 mg IVPB BID [facility] Last Admin: 06/05/17 10:45 Dose: 500 mg Vital Signs - 24 hr 06/04/17 06/04/17 06/04/17 18:00 18:45 20:00 Temperature 98.9 F Pulse Rate 78 70 Respiratory 14 15 15 Rate Blood Pressure 106/54 116/53 O2 Sat by Pulse 100 Oximetry (%) 06/04/17 06/04/17 06/04/17 20:32 22:00 23:33 Temperature 99 F Pulse Rate 98 H Respiratory 14 14 14 Rate Blood Pressure 120/56 O2 Sat by Pulse Oximetry (%) 06/05/17 06/05/17 06/05/17 00:00 02:00 02:47 Temperature 99.5 F Pulse Rate 82 76 Respiratory 14 15 14 Rate Blood Pressure 114/53 120/53 O2 Sat by Pulse Oximetry (%) 06/05/17 06/05/17 06/05/17 04:00 06:00 08:00 Temperature 99.4 F Pulse Rate 74 76 78 Respiratory 14 14 21 Rate Blood Pressure 118/54 117/56 131/66 O2 Sat by Pulse 100 Oximetry (%) 06/05/17 06/05/17 06/05/17 09:00 09:20 09:30 Temperature Pulse Rate Respiratory 27 H Rate Blood Pressure O2 Sat by Pulse 99 99 Oximetry (%) 06/05/17 06/05/17 06/05/17 09:40 10:00 12:00 Temperature 99.1 F Pulse Rate 81 84 82 Respiratory 14 14 Rate Blood Pressure 128/62 115/58 O2 Sat by Pulse 99 Oximetry (%) 06/05/17 06/05/17 06/05/17 12:06 14:00 14:15 Temperature 99.2 F Pulse Rate 87 Respiratory 21 17 15 Rate Blood Pressure 118/59 O2 Sat by Pulse Oximetry (%) 06/05/17 16:00 Temperature Pulse Rate 107 H Respiratory 15 Rate Blood Pressure 135/57 O2 Sat by Pulse Oximetry (%) Intake & Output 06/03/17 06/04/17 06/05/17 06/06/17 07:59 07:59 07:59 07:59 Intake Total 2215 2194 2196 Output Total 4578 3850 2700 1350 Balance -285 -1656 -504 -1350 Weight 196 lb 3.382 oz 177 lb 178 lb 9.191 oz Constitutional: Yes: Well Nourished, No Distress, Calm, intubated sedated. Cardiovascular: Yes: Regular Rate and Rhythm, S1, S2. No: JVD (very tds exam), Gallop, Murmur Respiratory: Yes: Regular, mechanical breath sounds. No: Accessory Muscle Use, Rales, Wheezes Extremities: No: Cold Edema: 1+ dependent edema of upper thigh, sacrum. improving. Neurological: sedated Psychiatric: No: Agitated 1+ dp/pt Labs: CBC, BMP 06/05/17 05:30 06/05/17 05:30 Laboratory Tests 06/04/17 06/05/17 18:30 05:30 Magnesium 2.4 Total Bilirubin 0.4 AST 27 D ALT 18 Alkaline Phosphatase 208 H D Albumin 1.6 L Stool Occult Blood Negative - ....Imaging EKG: Other (tele: SR/sinus tach) ecg 05/28/17: sr, nl intervals, nonspec tw changes echo 10/2013: nl lv s/f, nl rv s/f, mild mr/tr echo 10/2016: lvef 40, anteroseptal hk, g2dd, nl rv, mild lae, mild-mod mr, mild tr, mod phtn, ivc mildly dilated echo 05/2017: mild lvh, sev dec lvef, global hk, rv mildly dec fcn, mild mr, mild tr cxr reviewed: bilateral layering pleural effusions, improving from priors. est cct 35 mins a/p: 71 m hx dm, hld, syst chf (ICM), cad s/p pci (cath [facility] 08/2014: [place] to mlad; residual 30-50 dlcx, 80-90 mrca-->staged pci 11/2014 with [place] to mrca) here with resp distress. Acute Hypoxic and Hypercapneic Respiratory Failure, acute on chronic syst chf, PEA arrest, shock (cardiogenic likely) with lactic acidosis: -recvd tPA in ER for ? PE--clinical picture not suggestive of this dx -05/30: CXR showing progressive chf changes, d/c'd IVF, lasix 40 iv x1 given. good UOP (2L) but I > O yesterday -05/31: CXR worse, bun/creat today slightly higher. incr'd lasix today 40 iv BID 05/31 -06/01: 4800 cc UOP yest; CXR improving slightly, bun/creat rising slightly. cont lasix 40 iv bid today. cont nitrates (gtt) for cardiorenal syndrome. dr. grider d/w'd crit care: will cont low dose levophed for now (also ? inotropic properties). holding BB, Entresto here due to hemodynamic instability at the moment. will plan to resume carvedilol (6.25 bid home dose) once better diuresed , sooner if frequent NSVT appears on tele - 06/02-: creatinine stable, cxr improving, wt down, continue lasix 40 mg iV bid. now off nitro drip. monitor bp. NSTEMI, cad s/p pci: -trop rise and fall pattern here, no isch ecg changes--suspect Type II ID sec to acute chf, though can't exclude small Type I ID (doubt the etiology of acute chf) -defer AC given dx uncertain, and it is now 48 hrs out from the acute event-- low threshold to start heparin if ischemic s/sx ensue -has OGT: start asa, monitor H/H trend -cont atorva and nitro drip. -resume b-genaro once better diuresed VTach: -brief NSVT on prior tele -K/Mag good -home carvedilol on hold given acute chf, (remains intubated)--resume BB later as above -cont tele monitoring elevated lfts: -likely from hypotension -LFTs resolved kandice on CKD: -last creat here 1.3 in 2014; was 1.5 on admit, up to 1.7, now back to 1.5-- i.e. may be close to his recent outpt baseline -suspect some component of hypoperfusion related to acute chf/shock - remains with chf/vol overload--observe cr trend with diuresis - s/p nitrates for cardiorenal syndrome, now off. hld: -cont statin DM: -per critical care
[2017-06-05] MEDS: PROPOFOL 1,000,000 MCG/100 ML VIAL IVPB SCH (17:00)
[2017-06-05] MEDS: CHLORHEXIDINE GLUCONATE 4% CLEANSER FOR DECOLONIZATION TP SCH (21:47)
[2017-06-05] MEDS: INSULIN DETEMIR 100 UNITS/ML MDV SQ SCH (21:49)
[2017-06-05] MEDS: ATORVASTATIN CA 40 MG TABLET (FP) NGT SCH (21:50)
[2017-06-06] MEDS: FUROSEMIDE 40 MG/4 ML INJECTABLE VIAL IVPUSH SCH (05:49)
[2017-06-06] MEDS: INSULIN SLIDING SCALE (NOVOLOG) 1 VIAL SQ SCH ×3 (06:04→17:31)
[2017-06-06 06:37] LABS: BASO % 0.3 % (0-2.0); EOS % 2.2 % (0-4.5); HEMATOCRIT 28.5 % (35.4-49); HEMOGLOBIN 9.3 GM/dL (11.7-16.9); LYMPH % 8.8 % (8-40); MCH 30.4 pg (25.7-33.7); MCHC 32.6 g/dl (32.0-35.9); MEAN CELL VOLUME 93.1 fl (80-96); MEAN PLT VOLUME 10.2 fl (7.5-11.1); MONO % 12.9 % (3.8-10.2); NEUT % 75.8 % (42.8-82.8); PLATELET COUNT 214 K/MM3 (134-434); RBC 3.06 M/mm3 (4.00-5.60); RDW 15.8 % (11.9-15.9); WHITE BLOOD COUNT 6.6 K/mm3 (4.0-10.0)
[2017-06-06 07:09] LABS: ALBUMIN 1.4 g/dl (3.4-5.0); ALK PHOS 211 U/L (45-117); ANION GAP 6 (8-16); BILIRUBIN,TOTAL 0.3 mg/dL (0.2-1.0); BLOOD UREA NITROGEN 66 mg/dL (7-18); CALCIUM 8.1 mg/dL (8.5-10.1); CHLORIDE 99 mmol/L (98-107); CO2 37 mmol/L (21-32); CREATININE 1.6 mg/dL (0.7-1.3); GLUCOSE,RANDOM 130 mg/dL (74-106); MAGNESIUM 2.5 mg/dL (1.8-2.4); PHOSPHOROUS 3.8 mg/dL (2.5-4.9); POTASSIUM 4.1 mmol/L (3.5-5.1); SGOT/AST 23 U/L (15-37); SGPT/ALT 17 U/L (12-78); SODIUM 142 mmol/L (136-145); TOT PROT 4.6 g/dl (6.4-8.2)
--- NOTE | 2017-06-06 09:14 | PN ---
Progress Note (short form) - Note Progress Note: Patient seen and examined in the ICU. Remains intubated. Propofol needed to be increased due to increased myoclonic jerk activity. Long meeting with the family. refuses to make him DNR/DNI or comfort care. Intake & Output 06/03/17 06/04/17 06/05/17 06/06/17 23:59 23:59 23:59 23:59 Intake Total 2194 2220 2031 988.8 Output Total 3650 3000 2550 600 Balance -1456 -780 -519 388.8 Weight 196 lb 3.382 oz 177 lb 178 lb 9.191 oz 178 lb 9.191 oz Last Vital Signs Temp Pulse Resp BP Pulse Ox 98.9 F 77 15 97/52 99 06/06/17 06:00 06/06/17 08:00 06/06/17 09:00 06/06/17 08:00 06/06/17 09:00 Active Medications Aspirin (Asa -) 81 mg NGT DAILY [facility] Last Admin: 06/05/17 10:09 Dose: 81 mg Atorvastatin Calcium (Lipitor -) 40 mg NGT HS [facility] Last Admin: 06/05/17 21:50 Dose: 40 mg Chlorhexidine Gluconate (Hibiclens For Decolonization -) 1 applic TP HS [facility] Last Admin: 06/05/17 21:47 Dose: 1 applic Furosemide (Lasix Injection -) 40 mg IVPUSH BID@0600,1400 [facility] Last Admin: 06/06/17 05:49 Dose: 40 mg CEFTRIAXONE 1 G/50 ML PREMIX (Ceftriaxone 1 Gm-D5w Bag) 50 mls @ 100 mls/hr IVPB DAILY [facility] Last Admin: 06/05/17 10:08 Dose: 100 mls/hr Propofol (Diprivan -) 1,000,000 mcg in 100 mls @ 4.86 mls/hr IVPB TITR [facility]; 10 MCG/KG/MIN PRN Reason: Protocol Last Titration: 06/05/17 18:00 Dose: 25 mcg/kg/min, 12.15 mls/hr Insulin Aspart (Novolog Vial Sliding Scale -) 1 vial SQ TIDAC [facility] PRN Reason: Protocol Last Admin: 06/06/17 06:04 Dose: Not Given Insulin Detemir (Levemir Vial) 8 units SQ [facility] Last Admin: 06/05/17 21:49 Dose: 8 units Levetiracetam (Keppra Injection -) 1,000 mg IVPB BID [facility] Last Admin: 06/05/17 21:46 Dose: 1,000 mg Pantoprazole Sodium (Protonix Iv) 40 mg IVPUSH DAILY [facility] Last Admin: 06/05/17 10:10 Dose: 40 mg Valproate Sodium (Depacon Injection -) 500 mg IVPB BID [facility] Last Admin: 06/05/17 21:47 Dose: 500 mg Gen: intubated, poorly responsive, occasional jerks Heart: RRR Lung: scattered rhonchi Abd: soft, nontender Ext: + edema Laboratory Results - last 24 hr 06/05/17 06/05/17 06/05/17 05:35 13:06 18:24 WBC RBC Hgb Hct MCV MCH MCHC RDW Plt Count MPV Neutrophils % Lymphocytes % Monocytes % Eosinophils % Basophils % Sodium Potassium Chloride Carbon Dioxide Anion Gap BUN Creatinine Creat Clearance w eGFR POC Glucometer 151.37251 101.57475 148.86523 Random Glucose Calcium Phosphorus Magnesium Total Bilirubin AST ALT Alkaline Phosphatase Total Protein Albumin 06/06/17 06/06/17 06:15 06:15 WBC 6.6 RBC 3.06 L Hgb 9.3 L Hct 28.5 L MCV 93.1 MCH 30.4 MCHC 32.6 RDW 15.8 Plt Count 214 MPV 10.2 Neutrophils % 75.8 Lymphocytes % 8.8 Monocytes % 12.9 H Eosinophils % 2.2 Basophils % 0.3 Sodium 142 Potassium 4.1 Chloride 99 Carbon Dioxide 37 H Anion Gap 6 L BUN 66 H Creatinine 1.6 H Creat Clearance w eGFR 42.58 POC Glucometer Random Glucose 130 H Calcium 8.1 L Phosphorus 3.8 Magnesium 2.5 H Total Bilirubin 0.3 D AST 23 ALT 17 Alkaline Phosphatase 211 H Total Protein 4.6 L Albumin 1.4 L - Problems (1) Acute respiratory failure with hypoxia Code(s): J96.01 - ACUTE RESPIRATORY FAILURE WITH HYPOXIA (2) Cardiac arrest Code(s): I46.9 - CARDIAC ARREST, CAUSE UNSPECIFIED (3) Acute pulmonary edema Code(s): J81.0 - ACUTE PULMONARY EDEMA (4) Acute on chronic systolic heart failure Code(s): I50.23 - ACUTE ON CHRONIC SYSTOLIC (CONGESTIVE) HEART FAILURE (5) Atrial fibrillation Code(s): I48.91 - UNSPECIFIED ATRIAL FIBRILLATION (6) Elevated troponin Code(s): R74.8 - ABNORMAL LEVELS OF OTHER SERUM ENZYMES (7) Hyperkalemia Code(s): E87.5 - HYPERKALEMIA (8) Hypertension Code(s): I10 - ESSENTIAL (PRIMARY) HYPERTENSION (9) Diabetes Code(s): E11.9 - TYPE 2 DIABETES MELLITUS WITHOUT COMPLICATIONS IMP: Acute Hypoxic and Hypercapneic Respiratory Failure s/p PEA Cardiopulmonary Arrest Acute Pulmonary Edema Acute on Chronic Systolic Heart Failure Shock - Likely Cardiogenic Acute [place] UTI Acute Kidney Injury Lactic Acidosis Elevated LFTs HTN DM - ABX - Monitor off levophed drip - Normal transfusion thresholds - Lasix - Monitor urine output, creatinine - D/C sedation to assess mental status - Start spontaneous breathing trials if mental status improved - Enteral feeds - DVT/GI prophylaxis - ICU monitoring - Poor overall prognosis, further discussions with family goals of care, advance directives, ideally should have compassionate extubation Dr Aguilar Critical care time spent in reviewing chart, evaluating patient and formulating plan 40 min
[2017-06-06] MEDS: ASPIRIN 81 MG CHEWABLE TABLETS NGT SCH (09:27)
[2017-06-06] MEDS: CEFTRIAXONE 1 G/50 ML PREMIX 50 ML IVPB SCH (09:27)
[2017-06-06] MEDS: levETIRAcetam 500 MG/5 ML INJECTION VIAL IVPB SCH ×2 (09:28→22:41)
[2017-06-06] MEDS: PANTOPRAZOLE SODIUM 40 MG VIAL IVPUSH SCH (09:29)
[2017-06-06] MEDS: VALPROATE SODIUM 500 MG/5 ML VIAL IVPB SCH ×2 (09:29→21:17)
[2017-06-06] MEDS: PROPOFOL 1,000,000 MCG/100 ML VIAL IVPB SCH (13:00)
--- NOTE | 2017-06-06 13:59 | PN ---
Progress Note (short form) - Note Progress Note: Chief Complaint: resp failure, PEA arrest History of Present Illness: intubated/sedated. febrile last night, sbp's trending down. otherwise no events. GOC discussions ongoing. Current Medications Aspirin (Asa -) 81 mg NGT DAILY REPLACED BY [facility] Last Admin: 06/06/17 09:27 Dose: 81 mg Atorvastatin Calcium (Lipitor -) 40 mg NGT HS REPLACED BY [facility] Last Admin: 06/05/17 21:50 Dose: 40 mg Chlorhexidine Gluconate (Hibiclens For Decolonization -) 1 applic TP HS REPLACED BY [facility] Last Admin: 06/05/17 21:47 Dose: 1 applic Furosemide (Lasix Injection -) 40 mg IVPUSH BID@0600,1400 REPLACED BY [facility] Last Admin: 06/06/17 05:49 Dose: 40 mg CEFTRIAXONE 1 G/50 ML PREMIX (Ceftriaxone 1 Gm-D5w Bag) 50 mls @ 100 mls/hr IVPB DAILY REPLACED BY [facility] Last Admin: 06/06/17 09:27 Dose: 100 mls/hr Propofol (Diprivan -) 1,000,000 mcg in 100 mls @ 4.86 mls/hr IVPB TITR PHILL; 10 MCG/KG/MIN PRN Reason: Protocol Last Titration: 06/05/17 18:00 Dose: 25 mcg/kg/min, 12.15 mls/hr Insulin Aspart (Novolog Vial Sliding Scale -) 1 vial SQ TIDAC REPLACED BY [facility] PRN Reason: Protocol Last Admin: 06/06/17 12:49 Dose: Not Given Insulin Detemir (Levemir Vial) 8 units SQ [facility] Last Admin: 06/05/17 21:49 Dose: 8 units Levetiracetam (Keppra Injection -) 1,000 mg IVPB BID REPLACED BY [facility] Last Admin: 06/06/17 09:28 Dose: 1,000 mg Pantoprazole Sodium (Protonix Iv) 40 mg IVPUSH DAILY REPLACED BY [facility] Last Admin: 06/06/17 09:29 Dose: 40 mg Valproate Sodium (Depacon Injection -) 500 mg IVPB BID REPLACED BY [facility] Last Admin: 06/06/17 09:29 Dose: 500 mg Vital Signs - 24 hr 06/05/17 06/05/17 06/05/17 14:00 14:15 16:00 Temperature 99.2 F Pulse Rate 87 107 H Respiratory 17 15 15 Rate Blood Pressure 118/59 135/57 O2 Sat by Pulse Oximetry (%) 06/05/17 06/05/17 06/05/17 16:20 17:38 18:53 Temperature 101.0 F H Pulse Rate 88 Respiratory 26 H 14 14 Rate Blood Pressure 92/48 O2 Sat by Pulse Oximetry (%) 06/05/17 06/05/17 06/05/17 20:00 21:30 22:00 Temperature 98.9 F Pulse Rate 80 70 Respiratory 14 14 14 Rate Blood Pressure 101/52 106/54 O2 Sat by Pulse 100 Oximetry (%) 06/06/17 06/06/17 06/06/17 00:00 00:05 02:00 Temperature 99.2 F Pulse Rate 68 Respiratory 14 14 14 Rate Blood Pressure 96/54 92/48 O2 Sat by Pulse Oximetry (%) 06/06/17 06/06/17 06/06/17 03:01 04:00 05:20 Temperature Pulse Rate 72 Respiratory 14 14 14 Rate Blood Pressure 96/52 O2 Sat by Pulse Oximetry (%) 06/06/17 06/06/17 06/06/17 06:00 07:44 08:00 Temperature 98.9 F Pulse Rate 70 77 Respiratory 14 17 15 Rate Blood Pressure 98/53 97/52 O2 Sat by Pulse Oximetry (%) 06/06/17 06/06/17 06/06/17 08:40 09:00 10:00 Temperature 98.9 F Pulse Rate 76 73 Respiratory 15 15 20 Rate Blood Pressure 92/48 O2 Sat by Pulse 100 99 Oximetry (%) 06/06/17 06/06/17 11:48 12:00 Temperature Pulse Rate 73 Respiratory 14 16 Rate Blood Pressure 93/50 O2 Sat by Pulse Oximetry (%) Intake & Output 06/04/17 06/05/17 06/06/17 06/07/17 07:59 07:59 07:59 07:59 Intake Total 2194 2196 2071.8 Output Total 1758 6050 8121 Balance -5056 -099 -578.2 Weight 177 lb 178 lb 9.191 oz 178 lb 9.191 oz Constitutional: Yes: Well Nourished, No Distress, Calm, intubated sedated. Cardiovascular: Yes: Regular Rate and Rhythm, S1, S2. No: JVD (very tds exam), Gallop, Murmur Respiratory: Yes: Regular, mechanical breath sounds. No: Accessory Muscle Use, Rales, Wheezes Extremities: No: Cold Edema: 1+ dependent edema of upper thigh, sacrum. improving. Neurological: sedated Psychiatric: No: Agitated 1+ dp/pt Labs: CBC, BMP 06/06/17 06:15 06/06/17 06:15 Laboratory Tests 06/06/17 06:15 Magnesium 2.5 H Albumin 1.4 L - ....Imaging EKG: Other (tele: SR with frequent pac's) ecg 05/28/17: sr, nl intervals, nonspec tw changes echo 10/2013: nl lv s/f, nl rv s/f, mild mr/tr echo 10/2016: lvef 40, anteroseptal hk, g2dd, nl rv, mild lae, mild-mod mr, mild tr, mod phtn, ivc mildly dilated echo 05/2017: mild lvh, sev dec lvef, global hk, rv mildly dec fcn, mild mr, mild tr cxr reviewed: bilateral layering pleural effusions, improving from priors. est cct 35 mins a/p: 73 m hx dm, hld, syst chf (ICM), cad s/p pci (cath [facility] 08/2014: [place] to [facility]; residual 30-50 dlcx, 80-90 mrca-->staged pci 11/2014 with [place] to [facility]) here with resp distress. Acute Hypoxic and Hypercapneic Respiratory Failure, acute on chronic syst chf, PEA arrest, shock (cardiogenic likely) with lactic acidosis: -recvd tPA in ER for ? PE--clinical picture not suggestive of this dx -05/30: CXR showing progressive chf changes, d/c'd IVF, lasix 40 iv x1 given. good UOP (2L) but I > O yesterday -05/31: CXR worse, bun/creat today slightly higher. incr'd lasix today 40 iv BID 05/31 -06/01: 4800 cc UOP yest; CXR improving slightly, bun/creat rising slightly. cont lasix 40 iv bid today. cont nitrates (gtt) for cardiorenal syndrome. dr. grider d/w'd crit care: will cont low dose levophed for now (also ? inotropic properties). holding BB, Entresto here due to hemodynamic instability at the moment. will plan to resume carvedilol (6.25 bid home dose) once better diuresed , sooner if frequent NSVT appears on tele - 06/02-: creatinine stable, cxr improving, wt down, continue lasix 40 mg iV bid. now off nitro drip. monitor bp. - 06/05: volume status improving. bmp stable. bun and bicarb trending up. Will decrease diuresis from 40 IV lasix bid to daily tomorrow. - 06/06: febrile last night, since then sbp's trending down. Still total body volume overloaded, but will give trial of daily lasix in light of sbp's, ? infection. NSTEMI, cad s/p pci: -trop rise and fall pattern here, no isch ecg changes--suspect Type II VA sec to acute chf, though can't exclude small Type I VA (doubt the etiology of acute chf) -defer AC given dx uncertain, and it is now 48 hrs out from the acute event-- low threshold to start heparin if ischemic s/sx ensue -has OGT: start asa, monitor H/H trend -cont atorva and nitro drip. -resume b-genaro once better diuresed/bp improves VTach: -brief NSVT on prior tele -K/Mag good -home carvedilol on hold given acute chf, (remains intubated)--resume BB later as above -cont tele monitoring elevated lfts: -likely from hypotension -LFTs resolved kandice on CKD: -last creat here 1.3 in 2014; was 1.5 on admit, up to 1.7, now back to 1.5-- i.e. may be close to his recent outpt baseline -suspect some component of hypoperfusion related to acute chf/shock - remains with chf/vol overload--observe cr trend with diuresis - s/p nitrates for cardiorenal syndrome, now off. hld: -cont statin DM: -per critical care
--- NOTE | 2017-06-06 14:44 | PN ---
Progress Note (short form) - Note Progress Note: pt seen/ examined . condition same all f/u noted refuses to gurvinder him dnr/di Vital Signs Temp 98.9 F 06/06/17 10:00 Pulse 73 06/06/17 12:00 Resp 14 06/06/17 14:06 BP 93/50 06/06/17 12:00 Pulse Ox 100 06/06/17 10:33 Intake & Output 06/05/17 06/06/17 06/06/17 23:59 11:59 23:59 Intake Total 1083 988.8 Output Total 2050 600 Balance -967 388.8 Weight 178 lb 9.191 oz Intake: IV 103 148.8 DIPRIVAN - 1,000,000 mcg 103 148.8 In 100 ml @ 10 MCG/KG/MIN 4.86 mls/hr IVPB TITR PHILL Rx#:[id number] IVPB 350 Tube Feeding 450 600 Tube Irrigant 180 240 Output: Urine 0 600 Oates 0 600 Other: Voiding Method Indwelling Catheter Indwelling Catheter Bowel Movement Yes Yes # Bowel Movements 1 1 Weight Measurement Method Built in [facility] Active Medications Aspirin (Asa -) 81 mg NGT DAILY [facility] Last Admin: 06/06/17 09:27 Dose: 81 mg Atorvastatin Calcium (Lipitor -) 40 mg NGT HS [facility] Last Admin: 06/05/17 21:50 Dose: 40 mg Chlorhexidine Gluconate (Hibiclens For Decolonization -) 1 applic TP HS [facility] Last Admin: 06/05/17 21:47 Dose: 1 applic Furosemide (Lasix Injection -) 40 mg IVPUSH DAILY [facility] CEFTRIAXONE 1 G/50 ML PREMIX (Ceftriaxone 1 Gm-D5w Bag) 50 mls @ 100 mls/hr IVPB DAILY [facility] Last Admin: 06/06/17 09:27 Dose: 100 mls/hr Propofol (Diprivan -) 1,000,000 mcg in 100 mls @ 4.86 mls/hr IVPB TITR PHILL; 10 MCG/KG/MIN PRN Reason: Protocol Last Titration: 06/05/17 18:00 Dose: 25 mcg/kg/min, 12.15 mls/hr Insulin Aspart (Novolog Vial Sliding Scale -) 1 vial SQ TIDAC [facility] PRN Reason: Protocol Last Admin: 06/06/17 12:49 Dose: Not Given Insulin Detemir (Levemir Vial) 8 units SQ HS [facility] Last Admin: 06/05/17 21:49 Dose: 8 units Levetiracetam (Keppra Injection -) 1,000 mg IVPB BID [facility] Last Admin: 06/06/17 09:28 Dose: 1,000 mg Pantoprazole Sodium (Protonix Iv) 40 mg IVPUSH DAILY [facility] Last Admin: 06/06/17 09:29 Dose: 40 mg Valproate Sodium (Depacon Injection -) 500 mg IVPB BID [facility] Last Admin: 06/06/17 09:29 Dose: 500 mg CBC, BMP 06/06/17 06:15 06/06/17 06:15 Physical Examination Constitutional: Yes: Other (intubated/sedated/) Eyes: Yes: Other-- right - enucleated-- left - reactive pupil. HENT: Yes: Other-- no jvd-- orally intubated Neck: Yes: Other-- Cardiovascular: Yes: Regular Rate and Rhythm Respiratory: Yes: Diminished at bases. Gastrointestinal: Yes: Soft/ non tender Edema: LLE: 1+, RLE: 1+ Neurological: Yes: Other (sedated) oates + Assessment/Plan s/p cardiac arrest Anoxic encephalopathy- Ventilator support Critical team on the case. Monitor blood sugar. Abx transfusion prn palliative care team prognosis poor. discussed with nursing staff. pt is full code. Problem List - Problems (1) Cardiac arrest Code(s): I46.9 - CARDIAC ARREST, CAUSE UNSPECIFIED (2) Diabetes Code(s): E11.9 - TYPE 2 DIABETES MELLITUS WITHOUT COMPLICATIONS (3) Elevated troponin Code(s): R74.8 - ABNORMAL LEVELS OF OTHER SERUM ENZYMES (4) Lactic acidosis Code(s): E87.2 - ACIDOSIS (5) CHF (congestive heart failure) Code(s): I50.9 - HEART FAILURE, UNSPECIFIED (6) Anoxic brain damage Code(s): G93.1 - ANOXIC BRAIN DAMAGE, NOT ELSEWHERE CLASSIFIED
[2017-06-06] MEDS: ATORVASTATIN CA 40 MG TABLET (FP) NGT SCH (21:17)
[2017-06-06] MEDS: INSULIN DETEMIR 100 UNITS/ML MDV SQ SCH (21:17)
[2017-06-06] MEDS: CHLORHEXIDINE GLUCONATE 4% CLEANSER FOR DECOLONIZATION TP SCH (21:17)
[2017-06-07 06:22] LABS: HEMATOCRIT 26.9 % (35.4-49); HEMOGLOBIN 8.9 GM/dL (11.7-16.9); MCH 30.6 pg (25.7-33.7); MEAN CELL VOLUME 92.6 fl (80-96); PLATELET COUNT 264 K/MM3 (134-434); RDW 15.6 % (11.9-15.9); WHITE BLOOD COUNT 6.4 K/mm3 (4.0-10.0)
[2017-06-07] MEDS: INSULIN SLIDING SCALE (NOVOLOG) 1 VIAL SQ SCH ×3 (06:51→16:33)
[2017-06-07 07:01] LABS: ALBUMIN 1.4 g/dl (3.4-5.0); ANION GAP 8 (8-16); BLOOD UREA NITROGEN 66 mg/dL (7-18); CALCIUM 8.1 mg/dL (8.5-10.1); CHLORIDE 101 mmol/L (98-107); CO2 35 mmol/L (21-32); GLUCOSE,RANDOM 115 mg/dL (74-106); MAGNESIUM 2.5 mg/dL (1.8-2.4); POTASSIUM 4.5 mmol/L (3.5-5.1); SODIUM 144 mmol/L (136-145)
[2017-06-07 07:04] LABS: ALK PHOS 238 U/L (45-117); BILIRUBIN,TOTAL 0.3 mg/dL (0.2-1.0); CREATININE 1.4 mg/dL (0.7-1.3); PHOSPHOROUS 3.5 mg/dL (2.5-4.9); SGOT/AST 27 U/L (15-37); SGPT/ALT 16 U/L (12-78); TOT PROT 4.4 g/dl (6.4-8.2)
--- NOTE | 2017-06-07 09:10 | PN ---
Progress Note (short form) - Note Progress Note: Patient seen and examined in the ICU. Remains intubated. AC Mode of vent. Sedated on propofol. Still with some myoclonic jerk activity. Intake & Output 06/04/17 06/05/17 06/06/17 06/07/17 23:59 23:59 23:59 23:59 Intake Total 2220 2031 2276.8 524 Output Total 3000 2550 1600 800 Balance -780 -519 676.8 -276 Weight 177 lb 178 lb 9.191 oz 178 lb 9.191 oz 179 lb 3.2 oz Last Vital Signs Temp Pulse Resp BP Pulse Ox 98.4 F 82 14 104/51 99 06/07/17 06:00 06/07/17 07:54 06/07/17 07:54 06/07/17 07:54 06/07/17 07:51 Active Medications Aspirin (Asa -) 81 mg NGT DAILY [facility] Last Admin: 06/06/17 09:27 Dose: 81 mg Atorvastatin Calcium (Lipitor -) 40 mg NGT HS [facility] Last Admin: 06/06/17 21:17 Dose: 40 mg Chlorhexidine Gluconate (Hibiclens For Decolonization -) 1 applic TP HS [facility] Last Admin: 06/06/17 21:17 Dose: 1 applic Furosemide (Lasix Injection -) 40 mg IVPUSH DAILY [facility] CEFTRIAXONE 1 G/50 ML PREMIX (Ceftriaxone 1 Gm-D5w Bag) 50 mls @ 100 mls/hr IVPB DAILY [facility] Last Admin: 06/06/17 09:27 Dose: 100 mls/hr Propofol (Diprivan -) 1,000,000 mcg in 100 mls @ 4.86 mls/hr IVPB TITR PHILL; 10 MCG/KG/MIN PRN Reason: Protocol Last Admin: 06/06/17 13:00 Dose: 25 mcg/kg/min, 12.15 mls/hr Insulin Aspart (Novolog Vial Sliding Scale -) 1 vial SQ TIDAC [facility] PRN Reason: Protocol Last Admin: 06/07/17 06:51 Dose: Not Given Insulin Detemir (Levemir Vial) 8 units SQ HS [facility] Last Admin: 06/06/17 21:17 Dose: 8 units Levetiracetam (Keppra Injection -) 1,000 mg IVPB BID [facility] Last Admin: 06/06/17 22:41 Dose: 1,000 mg Pantoprazole Sodium (Protonix Iv) 40 mg IVPUSH DAILY [facility] Last Admin: 06/06/17 09:29 Dose: 40 mg Valproate Sodium (Depacon Injection -) 500 mg IVPB BID [facility] Last Admin: 06/06/17 21:17 Dose: 500 mg Gen: intubated, poorly responsive, occasional jerks Heart: RRR Lung: scattered rhonchi Abd: soft, nontender Ext: + edema Laboratory Results - last 24 hr 06/06/17 06/06/17 06/06/17 05:57 11:50 17:25 WBC RBC Hgb Hct MCV MCH MCHC RDW Plt Count MPV Sodium Potassium Chloride Carbon Dioxide Anion Gap BUN Creatinine Creat Clearance w eGFR POC Glucometer 147.72647 149.17953 160.77058 Random Glucose Calcium Phosphorus Magnesium Total Bilirubin AST ALT Alkaline Phosphatase Total Protein Albumin 06/06/17 06/07/17 06/07/17 20:27 06:05 06:05 WBC 6.4 RBC 2.90 L Hgb 8.9 L Hct 26.9 L MCV 92.6 MCH 30.6 MCHC 33.0 RDW 15.6 Plt Count 264 D MPV 10.0 Sodium 144 Potassium 4.5 Chloride 101 Carbon Dioxide 35 H Anion Gap 8 BUN 66 H Creatinine 1.4 H Creat Clearance w eGFR 49.68 POC Glucometer 161.40111 Random Glucose 115 H Calcium 8.1 L Phosphorus 3.5 Magnesium 2.5 H Total Bilirubin 0.3 AST 27 ALT 16 Alkaline Phosphatase 238 H Total Protein 4.4 L Albumin 1.4 L 06/07/17 06:33 WBC RBC Hgb Hct MCV MCH MCHC RDW Plt Count MPV Sodium Potassium Chloride Carbon Dioxide Anion Gap BUN Creatinine Creat Clearance w eGFR POC Glucometer 152.03601 Random Glucose Calcium Phosphorus Magnesium Total Bilirubin AST ALT Alkaline Phosphatase Total Protein Albumin - Problems (1) Acute respiratory failure with hypoxia Code(s): J96.01 - ACUTE RESPIRATORY FAILURE WITH HYPOXIA (2) Cardiac arrest Code(s): I46.9 - CARDIAC ARREST, CAUSE UNSPECIFIED (3) Acute pulmonary edema Code(s): J81.0 - ACUTE PULMONARY EDEMA (4) Acute on chronic systolic heart failure Code(s): I50.23 - ACUTE ON CHRONIC SYSTOLIC (CONGESTIVE) HEART FAILURE (5) Atrial fibrillation Code(s): I48.91 - UNSPECIFIED ATRIAL FIBRILLATION (6) Elevated troponin Code(s): R74.8 - ABNORMAL LEVELS OF OTHER SERUM ENZYMES (7) Hyperkalemia Code(s): E87.5 - HYPERKALEMIA (8) Hypertension Code(s): I10 - ESSENTIAL (PRIMARY) HYPERTENSION (9) Diabetes Code(s): E11.9 - TYPE 2 DIABETES MELLITUS WITHOUT COMPLICATIONS IMP: Acute Hypoxic and Hypercapneic Respiratory Failure s/p PEA Cardiopulmonary Arrest Acute Pulmonary Edema Acute on Chronic Systolic Heart Failure Shock - Likely Cardiogenic Acute MN UTI Acute Kidney Injury Lactic Acidosis Elevated LFTs HTN DM - ABX - Normal transfusion thresholds - Lasix - Monitor urine output, creatinine - Sedation vacations to assess mental status - Start spontaneous breathing trials if mental status improved - Enteral feeds - DVT/GI prophylaxis - ICU monitoring - Poor overall prognosis, further discussions with family goals of care, advance directives, ideally should have compassionate extubation Dr Aguilar Critical care time spent in reviewing chart, evaluating patient and formulating plan 40 min
[2017-06-07] MEDS: levETIRAcetam 500 MG/5 ML INJECTION VIAL IVPB SCH ×2 (09:39→22:17)
[2017-06-07] MEDS: VALPROATE SODIUM 500 MG/5 ML VIAL IVPB SCH ×2 (09:39→22:18)
[2017-06-07] MEDS: PANTOPRAZOLE SODIUM 40 MG VIAL IVPUSH SCH (09:39)
[2017-06-07] MEDS: ASPIRIN 81 MG CHEWABLE TABLETS NGT SCH (09:39)
[2017-06-07] MEDS: FUROSEMIDE 40 MG/4 ML INJECTABLE VIAL IVPUSH SCH (10:29)
--- NOTE | 2017-06-07 12:27 | PN ---
Progress Note (short form) - Note Progress Note: pt seen/ examined in icu overall condition remains same all f/u noted/ appreciated sedated +myoclonic jerks +ve gag reflex assists vent sometimes Vital Signs Temp 98.4 F 06/07/17 06:00 Pulse 84 06/07/17 10:07 Resp 14 06/07/17 12:00 BP 104/51 06/07/17 07:54 Pulse Ox 100 06/07/17 10:07 Intake & Output 06/06/17 06/07/17 06/07/17 23:59 11:59 23:59 Intake Total 1288 524 Output Total 1000 800 Balance 288 -276 Weight 179 lb 3.2 oz Intake: IV 148 84 DIPRIVAN - 1,000,000 mcg 148 84 In 100 ml @ 10 MCG/KG/MIN 4.86 mls/hr IVPB TITR PHILL Rx#:[id number] IVPB 300 Tube Feeding 600 300 Tube Irrigant 240 140 Output: Urine 1000 800 Oates 1000 800 Other: Voiding Method Indwelling Catheter Indwelling Catheter Bowel Movement No Weight Measurement Method Built in [facility] Active Medications Aspirin (Asa -) 81 mg NGT DAILY [facility] Last Admin: 06/07/17 09:39 Dose: 81 mg Atorvastatin Calcium (Lipitor -) 40 mg NGT HS [facility] Last Admin: 06/06/17 21:17 Dose: 40 mg Chlorhexidine Gluconate (Hibiclens For Decolonization -) 1 applic TP HS [facility] Last Admin: 06/06/17 21:17 Dose: 1 applic Furosemide (Lasix Injection -) 40 mg IVPUSH DAILY [facility] Last Admin: 06/07/17 10:29 Dose: 40 mg Propofol (Diprivan -) 1,000,000 mcg in 100 mls @ 4.86 mls/hr IVPB TITR PHILL; 10 MCG/KG/MIN PRN Reason: Protocol Last Admin: 06/06/17 13:00 Dose: 25 mcg/kg/min, 12.15 mls/hr Insulin Aspart (Novolog Vial Sliding Scale -) 1 vial SQ TIDAC [facility] PRN Reason: Protocol Last Admin: 06/07/17 12:26 Dose: Not Given Insulin Detemir (Levemir Vial) 8 units SQ [facility] Last Admin: 06/06/17 21:17 Dose: 8 units Levetiracetam (Keppra Injection -) 1,000 mg IVPB BID [facility] Last Admin: 06/07/17 09:39 Dose: 1,000 mg Pantoprazole Sodium (Protonix Iv) 40 mg IVPUSH DAILY [facility] Last Admin: 06/07/17 09:39 Dose: 40 mg Valproate Sodium (Depacon Injection -) 500 mg IVPB BID [facility] Last Admin: 06/07/17 09:39 Dose: 500 mg CBC, BMP 06/07/17 06:05 06/07/17 06:05 Physical Examination Constitutional: Yes: Other (intubated/sedated/) Eyes: Yes: Other-- right - enucleated-- left - reactive pupil. HENT: Yes: Other-- no jvd-- orally intubated Neck: Yes: Other-- Cardiovascular: Yes: Regular Rate and Rhythm Respiratory: Yes: Diminished at bases. Gastrointestinal: Yes: Soft/ non tender Edema: LLE: 1+, RLE: 1+ Neurological: Yes: Other (sedated) oates + Assessment/Plan s/p cardiac arrest Anoxic encephalopathy Ventilator support Critical team on the case. Monitor blood sugar. Abx prognosis remains poor. discussed with nursing staff. pt is full code. most likely will need peg/ trach will discuss with Dr. Thorne will follow Problem List - Problems (1) Cardiac arrest Code(s): I46.9 - CARDIAC ARREST, CAUSE UNSPECIFIED (2) Diabetes Code(s): E11.9 - TYPE 2 DIABETES MELLITUS WITHOUT COMPLICATIONS (3) Elevated troponin Code(s): R74.8 - ABNORMAL LEVELS OF OTHER SERUM ENZYMES (4) Lactic acidosis Code(s): E87.2 - ACIDOSIS (5) CHF (congestive heart failure) Code(s): I50.9 - HEART FAILURE, UNSPECIFIED (6) Anoxic brain damage Code(s): G93.1 - ANOXIC BRAIN DAMAGE, NOT ELSEWHERE CLASSIFIED
[2017-06-07] MEDS: PROPOFOL 1,000,000 MCG/100 ML VIAL IVPB SCH ×2 (12:59→19:42)
--- NOTE | 2017-06-07 15:32 | PN ---
Progress Note (short form) - Note Progress Note: Chief Complaint: resp failure, PEA arrest History of Present Illness: intubated/sedated. IV lasix decreased to daily yesterday. episode of prolonged atrial flutter yesterday afternoon, evening. No further fevers, sbp' s slightly improved. Current Medications Aspirin (Asa -) 81 mg NGT DAILY [facility] Last Admin: 06/07/17 09:39 Dose: 81 mg Atorvastatin Calcium (Lipitor -) 40 mg NGT HS [facility] Last Admin: 06/06/17 21:17 Dose: 40 mg Chlorhexidine Gluconate (Hibiclens For Decolonization -) 1 applic TP HS [facility] Last Admin: 06/06/17 21:17 Dose: 1 applic Furosemide (Lasix Injection -) 40 mg IVPUSH DAILY [facility] Last Admin: 06/07/17 10:29 Dose: 40 mg Propofol (Diprivan -) 1,000,000 mcg in 100 mls @ 4.86 mls/hr IVPB TITR PHILL; 10 MCG/KG/MIN PRN Reason: Protocol Last Admin: 06/07/17 12:59 Dose: 25 mcg/kg/min, 12.15 mls/hr Insulin Aspart (Novolog Vial Sliding Scale -) 1 vial SQ TIDAC [facility] PRN Reason: Protocol Last Admin: 06/07/17 12:26 Dose: Not Given Insulin Detemir (Levemir Vial) 8 units SQ HS [facility] Last Admin: 06/06/17 21:17 Dose: 8 units Levetiracetam (Keppra Injection -) 1,000 mg IVPB BID [facility] Last Admin: 06/07/17 09:39 Dose: 1,000 mg Pantoprazole Sodium (Protonix Iv) 40 mg IVPUSH DAILY [facility] Last Admin: 06/07/17 09:39 Dose: 40 mg Valproate Sodium (Depacon Injection -) 500 mg IVPB BID [facility] Last Admin: 06/07/17 09:39 Dose: 500 mg Vital Signs - 24 hr 06/06/17 06/06/17 06/06/17 17:13 18:00 20:00 Temperature Pulse Rate 100 H 104 H Respiratory 14 8 L 14 Rate Blood Pressure 95/58 107/47 O2 Sat by Pulse Oximetry (%) 06/06/17 06/06/17 06/06/17 21:00 21:26 22:00 Temperature 98.6 F Pulse Rate 105 H 96 H Respiratory 14 16 Rate Blood Pressure 113/58 O2 Sat by Pulse 100 100 100 Oximetry (%) 06/06/17 06/07/17 06/07/17 23:00 00:00 02:00 Temperature 98.8 F Pulse Rate 88 86 Respiratory 14 14 16 Rate Blood Pressure 107/57 111/51 O2 Sat by Pulse 100 Oximetry (%) 06/07/17 06/07/17 06/07/17 04:00 05:00 06:00 Temperature 98.4 F Pulse Rate 85 86 Respiratory 16 14 14 Rate Blood Pressure 107/54 111/53 O2 Sat by Pulse Oximetry (%) 06/07/17 06/07/17 06/07/17 07:23 07:51 07:54 Temperature Pulse Rate 82 Respiratory 18 18 14 Rate Blood Pressure 104/51 O2 Sat by Pulse 99 Oximetry (%) 06/07/17 06/07/17 06/07/17 10:00 10:07 12:00 Temperature 98.6 F Pulse Rate 85 84 84 Respiratory 14 14 14 Rate Blood Pressure 107/48 121/61 O2 Sat by Pulse 100 Oximetry (%) 06/07/17 06/07/17 06/07/17 13:45 14:42 16:00 Temperature Pulse Rate 77 76 Respiratory 14 14 14 Rate Blood Pressure 101/63 123/67 O2 Sat by Pulse Oximetry (%) Intake & Output 06/05/17 06/06/17 06/07/17 06/08/17 07:59 07:59 07:59 07:59 Intake Total 2196 2071.8 1812 Output Total 2700 2650 1800 Balance -504 -578.2 12 Weight 178 lb 9.191 oz 178 lb 9.191 oz 179 lb 3.2 oz Constitutional: Yes: Well Nourished, No Distress, Calm, intubated sedated. Cardiovascular: Yes: Regular Rate and Rhythm, S1, S2. No: JVD (very tds exam), Gallop, Murmur Respiratory: Yes: Regular, mechanical breath sounds. No: Accessory Muscle Use, Rales, Wheezes Extremities: No: Cold Edema: 1+ dependent edema Neurological: sedated Psychiatric: No: Agitated 1+ dp/pt Labs: CBC, BMP 06/07/17 06:05 06/07/17 06:05 Laboratory Tests 06/07/17 06:05 Magnesium 2.5 H Total Bilirubin 0.3 AST 27 ALT 16 Alkaline Phosphatase 238 H Albumin 1.4 L - ....Imaging EKG: Other (tele: SR/ prolonged episode of aflutter vs. atach with variable conduction yesterday afternoon/evening. spontaneous conversion back to sr with freqent atrial funs, pac's. ) ecg 05/28/17: sr, nl intervals, nonspec twave changes echo 10/2013: nl lv s/f, nl rv s/f, mild mr/tr echo 10/2016: lvef 40, anteroseptal hk, g2dd, nl rv, mild lae, mild-mod mr, mild tr, mod phtn, ivc mildly dilated echo 05/2017: mild lvh, sev dec lvef, global hk, rv mildly dec fcn, mild mr, mild tr cxr reviewed: bilateral layering pleural effusions, improving from priors. est cct 35 mins a/p: 71 m hx dm, hld, syst chf (ICM), cad s/p pci (cath [facility] 08/2014: [place] to mlad; residual 30-50 dlcx, 80-90 mrca-->staged pci 11/2014 with [place] to mrca) here with resp distress. Acute Hypoxic and Hypercapneic Respiratory Failure, acute on chronic syst chf, PEA arrest, shock (cardiogenic likely) with lactic acidosis: -recvd tPA in ER for ? PE--clinical picture not suggestive of this dx -05/30: CXR showing progressive chf changes, d/c'd IVF, lasix 40 iv x1 given. good UOP (2L) but I > O yesterday -05/31: CXR worse, bun/creat today slightly higher. incr'd lasix today 40 iv BID 05/31 -06/01: 4800 cc UOP yest; CXR improving slightly, bun/creat rising slightly. cont lasix 40 iv bid today. cont nitrates (gtt) for cardiorenal syndrome. dr. grider d/w'd crit care: will cont low dose levophed for now (also ? inotropic properties). holding BB, Entresto here due to hemodynamic instability at the moment. will plan to resume carvedilol (6.25 bid home dose) once better diuresed , sooner if frequent NSVT appears on tele - 06/02-: creatinine stable, cxr improving, wt down, continue lasix 40 mg iV bid. off nitro drip 06/05. monitor bp. - 06/06: still total body volume overload, but bun and bicarb trending up. BP trending down since fever 06/05. IV lasix from bid to daily today. - 06/07: bp improving on daily lasix. remains net even. reassess volume status /bp tomorrow. Resume bid lasix once bp improves further. SVT - episode of aflutter vs. atach with variable conduction yesterday (06/06) evening lasting 5-6 hours. Now back in SR. - given limited episode and co-morbidities will defer AC for now, but if he has recurrence will need to reconsider. If bp stable will add very low dose lopressor tomorrow. 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 Now s/p nitro drip. resume b-genaro once better diuresed/bp improves as above. VTach: -brief NSVT on prior tele -K/Mag good -home carvedilol on hold given acute chf, (remains intubated)--resume BB later as above -cont tele monitoring elevated lfts: -likely from hypotension -LFTs resolved kandice on CKD: -last creat here 1.3 in 2014; was 1.5 on admit, up to 1.7, --i.e. may be close to his recent outpt baseline -suspect some component of hypoperfusion related to acute chf/shock. - s/p nitrates for cardiorenal syndrome, now off. - remains with chf/vol overload--observe cr trend with diuresis. trending up, plan as above. hld: -cont statin DM: -per critical care
[2017-06-07] MEDS ORDERED: HEMOQUE TEST 1 EACH EACH ONE (16:09)
[2017-06-07] MEDS: INSULIN DETEMIR 100 UNITS/ML MDV SQ SCH (22:17)
[2017-06-07] MEDS: ATORVASTATIN CA 40 MG TABLET (FP) NGT SCH (22:18)
[2017-06-07] MEDS: CHLORHEXIDINE GLUCONATE 4% CLEANSER FOR DECOLONIZATION TP SCH (22:18)
[2017-06-08] MEDS: INSULIN SLIDING SCALE (NOVOLOG) 1 VIAL SQ SCH ×3 (07:10→16:28)
[2017-06-08 08:15] LABS: ALBUMIN 1.4 g/dl (3.4-5.0); ALK PHOS 299 U/L (45-117); ANION GAP 6 (8-16); BILIRUBIN,TOTAL 0.3 mg/dL (0.2-1.0); BLOOD UREA NITROGEN 68 mg/dL (7-18); CALCIUM 7.6 mg/dL (8.5-10.1); CHLORIDE 102 mmol/L (98-107); CO2 37 mmol/L (21-32); CREATININE 1.5 mg/dL (0.7-1.3); GLUCOSE,RANDOM 158 mg/dL (74-106); POTASSIUM 4.6 mmol/L (3.5-5.1); SGOT/AST 30 U/L (15-37); SGPT/ALT 19 U/L (12-78); SODIUM 145 mmol/L (136-145); TOT PROT 4.7 g/dl (6.4-8.2)
[2017-06-08] MEDS: PROPOFOL 1,000,000 MCG/100 ML VIAL IVPB SCH ×3 (09:00→14:00)
--- NOTE | 2017-06-08 09:08 | PN ---
Progress Note (short form) - Note Progress Note: Patient seen and examined in the ICU. Remains intubated. AC Mode of vent. Sedated on propofol. Increasing myoclonic jerk activity. Intake & Output 06/05/17 06/06/17 06/07/17 06/08/17 23:59 23:59 23:59 23:59 Intake Total 2031 2276.8 2279 574 Output Total 2550 1600 2300 600 Balance -519 676.8 -21 -26 Weight 178 lb 9.191 oz 178 lb 9.191 oz 179 lb 3.2 oz 177 lb 14.609 oz Last Vital Signs Temp Pulse Resp BP Pulse Ox 98.1 F 78 14 114/58 100 06/08/17 06:00 06/08/17 06:00 06/08/17 07:02 06/08/17 06:00 06/07/17 20:32 Active Medications Aspirin (Asa -) 81 mg NGT DAILY [facility] Last Admin: 06/07/17 09:39 Dose: 81 mg Atorvastatin Calcium (Lipitor -) 40 mg NGT HS [facility] Last Admin: 06/07/17 22:18 Dose: 40 mg Chlorhexidine Gluconate (Hibiclens For Decolonization -) 1 applic TP HS [facility] Last Admin: 06/07/17 22:18 Dose: 1 applic Furosemide (Lasix Injection -) 40 mg IVPUSH DAILY [facility] Last Admin: 06/07/17 10:29 Dose: 40 mg Propofol (Diprivan -) 1,000,000 mcg in 100 mls @ 4.86 mls/hr IVPB TITR PHILL; 10 MCG/KG/MIN PRN Reason: Protocol Last Admin: 06/07/17 19:42 Dose: 25 mcg/kg/min, 12.15 mls/hr Insulin Aspart (Novolog Vial Sliding Scale -) 1 vial SQ TIDAC [facility] PRN Reason: Protocol Last Admin: 06/07/17 16:33 Dose: Not Given Insulin Detemir (Levemir Vial) 8 units SQ HS [facility] Last Admin: 06/07/17 22:17 Dose: 8 units Levetiracetam (Keppra Injection -) 1,000 mg IVPB BID [facility] Last Admin: 06/07/17 22:17 Dose: 1,000 mg Pantoprazole Sodium (Protonix Iv) 40 mg IVPUSH DAILY [facility] Last Admin: 06/07/17 09:39 Dose: 40 mg Valproate Sodium (Depacon Injection -) 500 mg IVPB BID [facility] Last Admin: 06/07/17 22:18 Dose: 500 mg Gen: intubated, poorly responsive, occasional jerks Heart: RRR Lung: scattered rhonchi Abd: soft, nontender Ext: + edema Laboratory Results - last 24 hr 06/07/17 06/07/17 06/08/17 12:24 16:18 06:30 Sodium 145 Potassium 4.6 Chloride 102 Carbon Dioxide 37 H Anion Gap 6 L BUN 68 H Creatinine 1.5 H Creat Clearance w eGFR 45.87 POC Glucometer 151.41648 161.21127 Random Glucose 158 H D Calcium 7.6 L Total Bilirubin 0.3 AST 30 ALT 19 Alkaline Phosphatase 299 H D Total Protein 4.7 L Albumin 1.4 L 06/08/17 06:39 Sodium Potassium Chloride Carbon Dioxide Anion Gap BUN Creatinine Creat Clearance w eGFR POC Glucometer 107.09389 Random Glucose Calcium Total Bilirubin AST ALT Alkaline Phosphatase Total Protein Albumin - Problems (1) Acute respiratory failure with hypoxia Code(s): J96.01 - ACUTE RESPIRATORY FAILURE WITH HYPOXIA (2) Cardiac arrest Code(s): I46.9 - CARDIAC ARREST, CAUSE UNSPECIFIED (3) Acute pulmonary edema Code(s): J81.0 - ACUTE PULMONARY EDEMA (4) Acute on chronic systolic heart failure Code(s): I50.23 - ACUTE ON CHRONIC SYSTOLIC (CONGESTIVE) HEART FAILURE (5) Atrial fibrillation Code(s): I48.91 - UNSPECIFIED ATRIAL FIBRILLATION (6) Elevated troponin Code(s): R74.8 - ABNORMAL LEVELS OF OTHER SERUM ENZYMES (7) Hyperkalemia Code(s): E87.5 - HYPERKALEMIA (8) Hypertension Code(s): I10 - ESSENTIAL (PRIMARY) HYPERTENSION (9) Diabetes Code(s): E11.9 - TYPE 2 DIABETES MELLITUS WITHOUT COMPLICATIONS IMP: Acute Hypoxic and Hypercapneic Respiratory Failure s/p PEA Cardiopulmonary Arrest Acute Pulmonary Edema Acute on Chronic Systolic Heart Failure Shock - Likely Cardiogenic Acute IN UTI Acute Kidney Injury Lactic Acidosis Elevated LFTs HTN DM - Monitor off ABX - Normal transfusion thresholds - Lasix - Monitor urine output, creatinine - Sedation vacations to assess mental status - Start spontaneous breathing trials if mental status improved - Enteral feeds - DVT/GI prophylaxis - ICU monitoring - Poor overall prognosis, further discussions with family goals of care, advance directives, ideally should have compassionate extubation Dr Aguilar Critical care time spent in reviewing chart, evaluating patient and formulating plan 40 min
[2017-06-08] MEDS: ASPIRIN 81 MG CHEWABLE TABLETS NGT SCH (09:20)
[2017-06-08] MEDS: VALPROATE SODIUM 500 MG/5 ML VIAL IVPB SCH ×2 (09:22→23:46)
[2017-06-08] MEDS: FUROSEMIDE 40 MG/4 ML INJECTABLE VIAL IVPUSH SCH (09:22)
[2017-06-08] MEDS: levETIRAcetam 500 MG/5 ML INJECTION VIAL IVPB SCH ×2 (09:22→23:46)
[2017-06-08] MEDS: PANTOPRAZOLE SODIUM 40 MG VIAL IVPUSH SCH (09:23)
--- NOTE | 2017-06-08 12:01 | PN ---
Progress Note (short form) - Note Progress Note: Pt seen/ examined sedated on vent all f/u noted whole family at bedside Vital Signs Temp 98.6 F 06/08/17 10:00 Pulse 83 06/08/17 10:00 Resp 14 06/08/17 12:00 BP 113/59 06/08/17 10:00 Pulse Ox 100 06/08/17 11:19 Intake & Output 06/07/17 06/08/17 06/08/17 23:59 11:59 23:59 Intake Total 1755 574 Output Total 1500 600 Balance 255 -26 Weight 177 lb 14.609 oz Intake: IV 215 84 DIPRIVAN - 1,000,000 mcg 215 84 In 100 ml @ 10 MCG/KG/MIN 4.86 mls/hr IVPB TITR PHILL Rx#:[id number] IVPB 350 Tube Feeding 850 350 Tube Irrigant 340 140 Output: Urine 1500 600 Oates 1500 600 Other: Voiding Method Indwelling Catheter Indwelling Catheter Bowel Movement No No Weight Measurement Method Built in [facility] Active Medications Aspirin (Asa -) 81 mg NGT DAILY [facility] Last Admin: 06/08/17 09:20 Dose: 81 mg Atorvastatin Calcium (Lipitor -) 40 mg NGT HS [facility] Last Admin: 06/07/17 22:18 Dose: 40 mg Chlorhexidine Gluconate (Hibiclens For Decolonization -) 1 applic TP HS [facility] Last Admin: 06/07/17 22:18 Dose: 1 applic Furosemide (Lasix Injection -) 40 mg IVPUSH DAILY [facility] Last Admin: 06/08/17 09:22 Dose: 40 mg Propofol (Diprivan -) 1,000,000 mcg in 100 mls @ 4.86 mls/hr IVPB TITR PHILL; 10 MCG/KG/MIN PRN Reason: Protocol Last Admin: 06/08/17 09:25 Dose: 27 mcg/kg/min, 13.122 mls/hr Insulin Aspart (Novolog Vial Sliding Scale -) 1 vial SQ TIDAC [facility] PRN Reason: Protocol Last Admin: 06/08/17 11:30 Dose: 3 units Insulin Detemir (Levemir Vial) 8 units SQ HS [facility] Last Admin: 06/07/17 22:17 Dose: 8 units Levetiracetam (Keppra Injection -) 1,000 mg IVPB BID [facility] Last Admin: 06/08/17 09:22 Dose: 1,000 mg Pantoprazole Sodium (Protonix Iv) 40 mg IVPUSH DAILY [facility] Last Admin: 06/08/17 09:23 Dose: 40 mg Valproate Sodium (Depacon Injection -) 500 mg IVPB BID [facility] Last Admin: 06/08/17 09:22 Dose: 500 mg CBC, BMP 06/07/17 06:05 06/08/17 06:30 Physical Examination Constitutional: Yes: Other (intubated/sedated/) Eyes: Yes: Other-- right - enucleated-- left - reactive pupil. HENT: Yes: Other-- no jvd-- orally intubated Neck: Yes: Other-- Cardiovascular: Yes: Regular Rate and Rhythm Respiratory: Yes: Diminished at bases. Gastrointestinal: Yes: Soft/ non tender Edema: LLE: 1+, RLE: 1+ Neurological: Yes: Other (sedated) oates + Assessment/Plan s/p cardiac arrest Anoxic encephalopathy Ventilator support Critical team on the case. Monitor blood sugar. Abx prognosis remains poor. discussed with nursing staff. pt is full code. discussed in detail with family -- condition/ poor prognosis-- sons/ sons agree with compasionate weaning but not ready yet-- they will talk to her. will follow continue present care for now discussed with nursing staff also. cc time 35 min Problem List - Problems (1) Cardiac arrest Code(s): I46.9 - CARDIAC ARREST, CAUSE UNSPECIFIED (2) Diabetes Code(s): E11.9 - TYPE 2 DIABETES MELLITUS WITHOUT COMPLICATIONS (3) Elevated troponin Code(s): R74.8 - ABNORMAL LEVELS OF OTHER SERUM ENZYMES (4) Lactic acidosis Code(s): E87.2 - ACIDOSIS (5) CHF (congestive heart failure) Code(s): I50.9 - HEART FAILURE, UNSPECIFIED (6) Anoxic brain damage Code(s): G93.1 - ANOXIC BRAIN DAMAGE, NOT ELSEWHERE CLASSIFIED
--- NOTE | 2017-06-08 12:37 | PN ---
Progress Note (short form) - Note Progress Note: Chief Complaint: resp failure, PEA arrest History of Present Illness: intubated/sedated. remains on iv lasix Current Medications Generic Name Dose Route Start Last Admin Trade Name Jones PRN Reason Stop Dose Admin Aspirin 81 mg 05/31/17 10:30 06/08/17 09:20 Asa - NGT 81 mg DAILY PHILL Administration Atorvastatin Calcium 40 mg 05/31/17 22:00 06/07/17 22:18 Lipitor - NGT 40 mg HS PHILL Administration Chlorhexidine Gluconate 1 applic 05/28/17 23:30 06/07/17 22:18 Hibiclens For Decolonization - TP 1 applic HS PHILL Administration Furosemide 40 mg 06/07/17 10:00 06/08/17 09:22 Lasix Injection - IVPUSH 40 mg DAILY PHILL Administration Propofol 1,000,000 mcg in 100 mls @ 4.86 mls/hr 06/05/17 17:00 06/08/17 09:25 Diprivan - IVPB 27 mcg/kg/min TITR PHILL 13.122 mls/hr Protocol Administration 10 MCG/KG/MIN Insulin Aspart 1 vial 05/29/17 07:00 06/08/17 11:30 Novolog Vial Sliding Scale - SQ 3 units TIDAC PHILL Administration Protocol Insulin Detemir 8 units 06/02/17 22:00 06/07/17 22:17 Levemir Vial SQ 8 units HS PHILL Administration Levetiracetam 1,000 mg 05/30/17 10:30 06/08/17 09:22 Keppra Injection - IVPB 1,000 mg BID PHILL Administration Pantoprazole Sodium 40 mg 05/28/17 19:00 06/08/17 09:23 Protonix Iv IVPUSH 40 mg DAILY PHILL Administration Valproate Sodium 500 mg 06/01/17 12:00 06/08/17 09:22 Depacon Injection - IVPB 500 mg BID PHILL Administration Vital Signs Temp 98.6 F 06/08/17 10:00 Pulse 83 06/08/17 10:00 Resp 14 06/08/17 12:00 BP 113/59 06/08/17 10:00 Pulse Ox 100 06/08/17 11:19 Intake & Output 06/07/17 06/08/17 06/08/17 23:59 11:59 23:59 Intake Total 1755 574 Output Total 1500 600 Balance 255 -26 Weight 177 lb 14.609 oz Intake: IV 215 84 DIPRIVAN - 1,000,000 mcg 215 84 In 100 ml @ 10 MCG/KG/MIN 4.86 mls/hr IVPB TITR PHILL Rx#:[id number] IVPB 350 Tube Feeding 850 350 Tube Irrigant 340 140 Output: Urine 1500 600 [place] 1500 600 Other: Voiding Method Indwelling Catheter Indwelling Catheter Bowel Movement No No Weight Measurement Method Built in [facility] Constitutional: Yes: Well Nourished, No Distress, Calm, intubated sedated. Cardiovascular: Yes: Regular Rate and Rhythm, S1, S2. No: JVD (very tds exam), Gallop, Murmur Respiratory: Yes: Regular, mechanical breath sounds. No: Accessory Muscle Use, Rales, Wheezes Extremities: No: Cold Edema: diffuse edema. Neurological: sedated Psychiatric: No: Agitated 1+ dp/pt Labs: Laboratory Last Values WBC 6.4 K/mm3 (4.0-10.0) 06/07/17 06:05 RBC 2.90 M/mm3 (4.00-5.60) L 06/07/17 06:05 Hgb 8.9 GM/dL (11.7-16.9) L 06/07/17 06:05 Hct 26.9 % (35.4-49) L 06/07/17 06:05 MCV 92.6 fl (80-96) 06/07/17 06:05 MCH 30.6 pg (25.7-33.7) 06/07/17 06:05 MCHC 33.0 g/dl (32.0-35.9) 06/07/17 06:05 RDW 15.6 % (11.9-15.9) 06/07/17 06:05 Plt Count 264 K/MM3 (134-434) D 06/07/17 06:05 MPV 10.0 fl (7.5-11.1) 06/07/17 06:05 Absolute Neuts (auto) 9.3 # (42.8-82.8) L D 05/29/17 06:20 Absolute Lymphs (auto) 0.3 (8-40) L 05/29/17 06:20 Absolute Monos (auto) 1.1 # (3.8-10.2) L 05/29/17 06:20 Absolute Eos (auto) 0.0 # (0-4.5) 05/29/17 06:20 Absolute Basos (auto) 0.0 # (0.1-1) L 05/29/17 06:20 Neutrophils % 75.8 % (42.8-82.8) 06/06/17 06:15 Lymphocytes % 8.8 % (8-40) 06/06/17 06:15 Monocytes % 12.9 % (3.8-10.2) H 06/06/17 06:15 Eosinophils % 2.2 % (0-4.5) 06/06/17 06:15 Basophils % 0.3 % (0-2.0) 06/06/17 06:15 PT with INR 15.20 SEC (9.98-11.88) H 05/30/17 05:35 INR 1.35 (0.82-1.09) H 05/30/17 05:35 PTT (Actin FS) 36.1 SECONDS (26.9-34.4) H 05/29/17 06:20 Anticoagulation Therapy Y 05/31/17 07:18 Puncture Site No Result Required. 06/03/17 07:22 ABG pH 7.48 (7.35-7.45) H 06/03/17 07:22 ABG pCO2 at Pt Temp 45.5 mmHg (35-45) H 06/03/17 07:22 ABG pO2 at Pt Temp 120.0 mmHg (70-100) H D 06/03/17 07:22 ABG HCO3 33.4 meq/L (22-26) H 06/03/17 07:22 ABG O2 Sat (Measured) 99.2 % (90-98.9) H 06/03/17 07:22 ABG O2 Content 11.0 % vol (15-22) L 06/03/17 07:22 ABG Base Excess 9.2 meq/l (-2-2) H 06/03/17 07:22 Maulik Test Positive 06/03/17 07:22 VBG pH 7.33 (7.32-7.42) 05/29/17 01:00 POC VBG pCO2 46.7 mmHg (38-52) D 05/29/17 01:00 POC VBG pO2 52.6 mmHg (28-48) H D 05/29/17 01:00 Mixed VBG HCO3 23.8 meq/L (19-25) 05/29/17 01:00 O2 Delivery Device Mech vent 06/03/17 07:22 Oxygen Flow Rate 40 06/03/17 07:22 Vent Mode A/c 06/03/17 07:22 Vent Rate 14 06/03/17 07:22 Mechanical Rate Yes 06/03/17 07:22 PEEP 5.0 cmH2O 06/03/17 07:22 Pressure Support Vent 350 06/03/17 07:22 Sodium 145 mmol/L (136-145) 06/08/17 06:30 Potassium 4.6 mmol/L (3.5-5.1) 06/08/17 06:30 Chloride 102 mmol/L (98-107) 06/08/17 06:30 Carbon Dioxide 37 mmol/L (21-32) H 06/08/17 06:30 Anion Gap 6 (8-16) L 06/08/17 06:30 BUN 68 mg/dL (7-18) H 06/08/17 06:30 Creatinine 1.5 mg/dL (0.7-1.3) H 06/08/17 06:30 Creat Clearance w eGFR 45.87 (>60) 06/08/17 06:30 POC Glucometer 202.00909 UNITS (80-120) 06/08/17 11:13 Random Glucose 158 mg/dL (74-106) H D 06/08/17 06:30 Hemoglobin A1c % 9.2 % (4.8-6.0) H D 05/29/17 06:20 Lactic Acid 2.0 mmol/L (0.4-2.0) 05/29/17 14:30 Calcium 7.6 mg/dL (8.5-10.1) L 06/08/17 06:30 Phosphorus 3.5 mg/dL (2.5-4.9) 06/07/17 06:05 Magnesium 2.5 mg/dL (1.8-2.4) H 06/07/17 06:05 Total Bilirubin 0.3 mg/dL (0.2-1.0) 06/08/17 06:30 AST 30 U/L (15-37) 06/08/17 06:30 ALT 19 U/L (12-78) 06/08/17 06:30 Alkaline Phosphatase 299 U/L (45-117) H D 06/08/17 06:30 Creatine Kinase 62 IU/L (39-308) 05/31/17 05:15 Creatine Kinase Index 6.1 % (0.0-5.0) H* 05/29/17 06:20 CK-MB (CK-2) 14.158 ng/mL (0.5-3.6) H 05/29/17 06:20 Troponin I 0.08 ng/ml (0.00-0.05) H D 05/31/17 05:15 Total Protein 4.7 g/dl (6.4-8.2) L 06/08/17 06:30 Albumin 1.4 g/dl (3.4-5.0) L 06/08/17 06:30 Urine Color Camille 05/28/17 13:40 Urine Appearance Turbid 05/28/17 13:40 Urine pH 5.0 (5.0-8.0) 05/28/17 13:40 Ur Specific [place] 1.013 (1.001-1.035) 05/28/17 13:40 Urine Protein 3+ (NEGATIVE) H 05/28/17 13:40 Urine Glucose (UA) 1+ (NEGATIVE) H 05/28/17 13:40 Urine Ketones Negative (NEGATIVE) 05/28/17 13:40 Urine Blood 2+ (NEGATIVE) H 05/28/17 13:40 Urine Nitrite Negative (NEGATIVE) 05/28/17 13:40 Urine Bilirubin Negative (NEGATIVE) 05/28/17 13:40 Urine Urobilinogen Negative mg/dL (0.2-1.0) 05/28/17 13:40 Ur Leukocyte Esterase 1+ (NEGATIVE) H 05/28/17 13:40 Urine WBC (Auto) 600 /hpf (3-5) 05/28/17 13:40 Urine RBC (Auto) 26 /hpf (0-3) 05/28/17 13:40 Ur Epithelial Cells Rare /HPF (FEW) 05/28/17 13:40 Urine Bacteria Many /hpf (NONE SEEN) 05/28/17 13:40 Urine Mucus Rare 05/28/17 13:40 Stool Occult Blood Negative (NEGATIVE) 06/04/17 18:30 Opiates Screen Negative ng/ml (RFJPHU=560) 06/02/17 06:00 Methadone Screen Negative ng/ml (YNSIAO=332) 06/02/17 06:00 Barbiturate Screen Negative ng/ml (OIOQDT=574) 06/02/17 06:00 Phencyclidine Screen Negative ng/ml (CUTOFF=25) 06/02/17 06:00 Ur Amphetamines Screen Negative ng/ml (JTKXJK=315) 06/02/17 06:00 MDMA (Ecstasy) Screen Negative ng/ml (GJEMMP=033) 06/02/17 06:00 Benzodiazepines Screen Positive ng/ml (FEUOSY=305) 06/02/17 06:00 Cocaine Screen Negative ng/ml (MYZEQK=701) 06/02/17 06:00 U Marijuana (THC) Screen Negative ng/ml (CUTOFF=50) 06/02/17 06:00 HIV 1&2 Antibody Screen Negative 05/30/17 10:15 HIV P24 Antigen Negative 05/30/17 10:15 Blood Type O POSITIVE 06/01/17 10:15 Antibody Screen Negative 06/01/17 10:15 Crossmatch See Detail 06/01/17 10:15 EKG: Other (tele: SR) ecg 05/28/17: sr, nl intervals, nonspec tw changes echo 10/2013: nl lv s/f, nl rv s/f, mild mr/tr echo 10/2016: lvef 40, anteroseptal hk, g2dd, nl rv, mild lae, mild-mod mr, mild tr, mod phtn, ivc mildly dilated echo 05/2017: mild lvh, sev dec lvef, global hk, rv mildly dec fcn, mild mr, mild tr cxr reviewed est cct 36 mins a/p: 71 m hx dm, hld, syst chf (ICM), cad s/p pci (cath mt [facility] 08/2014: [place] to mlad; residual 30-50 dlcx, 80-90 mrca-->staged pci 11/2014 with [place] to mrca) here with resp distress. Acute Hypoxic and Hypercapneic Respiratory Failure, acute on chronic syst chf, PEA arrest, shock (cardiogenic likely) with lactic acidosis: -recvd tPA in ER for ? PE--clinical picture not suggestive of this dx -12/23: CXR showing progressive chf changes, d/c'd IVF, lasix 40 iv x1 given. good UOP (2L) but I > O yesterday -05/31: CXR worse, bun/creat today slightly higher. incr'd lasix today 40 iv BID 05/31 -06/01: 4800 cc UOP yest; CXR improving slightly, bun/creat rising slightly. cont lasix 40 iv bid today. cont nitrates (gtt) for cardiorenal syndrome. dr. grider d/w'd crit care: will cont low dose levophed for now (also ? inotropic properties). holding BB, Entresto here due to hemodynamic instability at the moment. - 06/02-: creatinine stable, cxr improving, wt down, continue lasix 40 mg iV bid. off nitro drip 06/05. monitor bp. - 06/06: still total body volume overload, but bun and bicarb trending up. BP trending down since fever 06/05. IV lasix from bid to daily today. - 06/07: bp improving on daily lasix. remains net even. - 06/08: cont iv lasix SVT - episode of aflutter vs. atach with variable conduction yesterday (06/06) evening lasting 5-6 hours. Now back in SR. - given limited episode and co-morbidities will defer AC for now, but if he has recurrence will need to reconsider. NSTEMI, cad s/p pci: -trop rise and fall pattern here, no isch ecg changes--suspect Type II OR sec to acute chf, though can't exclude small Type I OR (doubt the etiology of acute chf) -defer AC given dx uncertain, and it is now 48 hrs out from the acute event-- low threshold to start heparin if ischemic s/sx ensue -has OGT: start asa, monitor H/H trend -cont atorva. Now s/p nitro drip. resume b-genaro once better diuresed/bp improves as above. VTach: -brief NSVT on prior tele -K/Mag good -home carvedilol on hold given acute chf -cont tele monitoring elevated lfts: -likely from hypotension -LFTs resolved kandice on CKD: -last creat here 1.3 in 2014; was 1.5 on admit, up to 1.7, --i.e. may be close to his recent outpt baseline -suspect some component of hypoperfusion related to acute chf/shock. - s/p nitrates for cardiorenal syndrome, now off. - remains with chf/vol overload--observe cr trend with diuresis. trending up, plan as above. hld: -cont statin DM: -per critical care
--- NOTE | 2017-06-08 13:35 | PN ---
Progress Note (short form) - Note Progress Note: Family at the bedside. Have agreed for compassionate extubation given grave prognosis. Will start IV Morphine for comfort measures. Will extubate and place on 100% NRBM. Dr Aguilar
[2017-06-08] MEDS ORDERED: LORazepam 2 MG/ML SDV VIAL IVPUSH PRN (13:37)
[2017-06-08] MEDS ORDERED: MORPHINE 100 MG in SODIUM CHLORIDE 98 ML IVPB SCH (13:45)
[2017-06-08] MEDS: ATORVASTATIN CA 40 MG TABLET (FP) NGT SCH (23:46)
[2017-06-09 01:42] VITALS: PULSE 114
[2017-06-09 02:15] VITALS: BP 97/53; TEMP 97.8
--- NOTE | 2017-06-09 08:39 | DS ---
Physical Examination Vital Signs: Vital Signs Temperature 97.8 F 06/09/17 02:00 Pulse Rate 114 H 06/09/17 02:00 Respiratory Rate 26 H 06/09/17 02:00 Blood Pressure 97/53 06/09/17 02:00 O2 Sat by Pulse Oximetry (%) 98 06/08/17 20:39 Findings/Remarks: see progress note of 06/08/17 Labs: CBC, BMP 06/07/17 06:05 06/08/17 06:30 Discharge Summary Reason For Visit: CARDIAC ARREST DUE TO RESPIRATORY DISORDER Hospital Course: the patient is 71yo male, patient of Dr Nash-- with extensive past medical history of HTN, DM, atrial fibrillation, CAD s/p stents, LV systolic dysfunction who became unresponsive on the cab ride to his doctor's office. Expediter took him to the emergency room. . Found to be pulseless in the ER with initial rhythm of PEA. patient coded in the ER--Resuscitated. pt admitted to icu. suffered anoxic encephalopathy condition did not improve compassionate weaning pt 06/09/17 @ 3 . 55 pm - Instructions Referrals: Martin Nash MD [Primary Care Provider] - Disposition: - Home Medications Comprehensive Discharge Medication List: Ambulatory Orders Carvedilol 6.25 mg PO BID 05/28/17 Escitalopram Oxalate [Lexapro -] 10 mg PO DAILY 05/28/17 Furosemide [Lasix] 80 mg PO DAILY 05/28/17 Potassium Chloride 20 meq PO DAILY 05/28/17 Sacubitril/Valsartan [Entresto 24 mg-26 mg Tablet] 1 each PO DAILY 05/28/17 Sitagliptin Phos/Metformin HCl [Janumet 50-500 mg Tablet] 1 each PO DAILY
== END 2017-06-09 06:14 | disposition expired | DRG 207 ==
LOC: JER 12:24 → JERBED 14:12 → JICU 23:26
PROVIDERS: ADMIT Internal Medicine; ATTEND Internal Medicine
PROC: 5A1955Z Respiratory Ventilation, Greater than 96 Consecutive Hours (ICD-10-PCS; principal; 2017-05-28)
PROC: 0BH17EZ Insertion of Endotracheal Airway into Trachea, Via Natural or Artificial Opening (ICD-10-PCS; 2017-05-28)
PROC: 3E03317 Introduction of Other Thrombolytic into Peripheral Vein, Percutaneous Approach (ICD-10-PCS; 2017-05-28)
PROC: 30233N1 Transfusion of Nonautologous Red Blood Cells into Peripheral Vein, Percutaneous Approach (ICD-10-PCS; 2017-06-01)
DX: J96.01 Acute respiratory failure with hypoxia (principal); I50.23 Acute on chronic systolic (congestive) heart failure; I21.3 ST elevation (STEMI) myocardial infarction of unspecified site; G93.1 Anoxic brain damage, not elsewhere classified; E87.2 Acidosis; I47.2 Ventricular tachycardia; N17.9 Acute kidney failure, unspecified; N39.0 Urinary tract infection, site not specified; I13.0 Hypertensive heart and chronic kidney disease with heart failure and stage 1 through stage 4 chronic kidney disease, or unspecified chronic kidney disease; J96.02 Acute respiratory failure with hypercapnia; I11.0 Hypertensive heart disease with heart failure; R57.0 Cardiogenic shock; I48.91 Unspecified atrial fibrillation; E87.5 Hyperkalemia; E11.9 Type 2 diabetes mellitus without complications; I25.10 Atherosclerotic heart disease of native coronary artery without angina pectoris; Z98.61 Coronary angioplasty status; I46.9 Cardiac arrest, cause unspecified; E11.22 Type 2 diabetes mellitus with diabetic chronic kidney disease; N18.9 Chronic kidney disease, unspecified; E78.5 Hyperlipidemia, unspecified
CPT/HCPCS: 36415; 36430; 36511; 36600; 70450-TC; 71010-TC; 76775-TC; 76856-TC; 80048; 80053; 80307; 81003; 81015; 82272; 82550; 82553; 82803; 83036; 83605; 83735; 84100; 84484; 85025; 85027; 85610; 85730; 86850; 86900; 86901; 86922; 87040; 87086; 87186; 87389; 93005; 93010; 93306-TC; 93970-TC; 94002; 95816; 99285-25; J2997; P9038; P9058